=== PATIENT | female | born 1935 | race Caucasian/White ===

== ENCOUNTER → 2017-05-21 | Outpatient (CLI) | payer MEDICARE ==
--- NOTE | 2017-05-21 15:36 | Diagnostic Imaging Report ---
INDICATION: Lung carcinoma, staging. TECHNIQUE: Serum blood glucose level at the time of injection is 129 mg/deciliter. The patient was administered 12.6 mCi F-18 FDG intravenously, administered in the right antecubital location. PET imaging was performed from the top of the skull through the pelvis. In addition, noncontrast CT imaging was performed for anatomic correlation and attenuation correction. COMPARISON: No prior CT or PET study is available for comparison. FINDINGS: There is normal symmetric uptake of activity throughout the brain. Symmetric muscular activity is identified within the strap muscles and sternocleidomastoid muscles of the neck bilaterally. No suspicious foci are detected. Imaging through the chest also demonstrates symmetric pectoralis muscular uptake. There is intense hypermetabolism involving a mass centrally located in the mediastinum near the nicho and origin of the right mainstem bronchus. The mass is inseparable from atelectatic lung occupying the entire right hemithorax. The SUV max for the central mass is approximately 12. There is complete atelectasis of the right upper lobe, right lower lobe, and right middle lobe. There are air bronchograms present. There is also a moderate amount of pleural fluid involving the right hemithorax. No other mediastinal or hilar mass is identified. No other parenchymal abnormalities are seen. Imaging through the abdomen demonstrates physiologic activity within the heart as well as the liver and spleen, urinary tracts, and GI tract. No abdominal or pelvic lymphadenopathy is identified. IMPRESSION: Intense hypermetabolism involving a large mass in the middle mediastinum at the origin of the right mainstem bronchus, suggestive of bronchogenic carcinoma. This does produce complete obstruction of the right mainstem bronchus with complete atelectasis of the right lung. There is also moderate right pleural effusion. No other regions of hypermetabolism are identified. Dictated by: Dictated on workstation # [id number]
== END ==
LOC: RAD 09:57
PROVIDERS: ATTEND Internal Medicine Hematology & Oncology
DX: C34.90 Malignant neoplasm of unspecified part of unspecified bronchus or lung (principal); J98.11 Atelectasis; J90 Pleural effusion, not elsewhere classified

== ENCOUNTER → 2017-05-28 | Outpatient (CLI) | payer MEDICARE ==
--- NOTE | 2017-05-28 14:16 | Diagnostic Imaging Report ---
INDICATION: Pleural effusion. TIME OF EXAM: 2:17 p.m. No prior chest radiographs are available for comparison. The heart size is normal. There are changes of median sternotomy. There is complete opacification of right hemithorax, likely owing to a combination of pleural fluid and lung consolidation. The left lung appears to be clear. No pneumothorax is seen. IMPRESSION: Complete opacification of the right hemithorax consistent with combination of atelectasis and pleural fluid. Dictated by: Dictated on workstation # [id number]
== END ==
LOC: RAD 10:57
PROVIDERS: ATTEND Nurse Practitioner Adult Health
DX: C34.2 Malignant neoplasm of middle lobe, bronchus or lung (principal); J90 Pleural effusion, not elsewhere classified
CPT/HCPCS: 71046

== ENCOUNTER 2017-06-07 05:29 | Outpatient (CLI) | payer MEDICARE ==
[~2017-06-07] VITALS: Ht 147.3 cm; Wt 56.2 kg
[2017-06-07 11:10] VITALS: BP 130/77
[2017-06-07] MEDS ORDERED: BUDE10.2 IH (12:02)
[2017-06-07] MEDS ORDERED: LOVA20TA2 PO (12:02)
[2017-06-07] MEDS ORDERED: TIMO5DRO5 OU (12:02)
[2017-06-07] MEDS ORDERED: LISI40TA PO (12:02)
[2017-06-07] MEDS ORDERED: ONDA8TAB12 PO (12:02)
[2017-06-07] MEDS ORDERED: MV-M1TAB2 PO (12:02)
[2017-06-07] MEDS ORDERED: NICO-533 TD (12:52)
[2017-06-07] MEDS ORDERED: ISOS30TA3 PO (12:52)
== END 2017-06-07 11:30 | disposition home or self-care (01) ==
LOC: PREOP 05:29
PROVIDERS: ATTEND Surgery
DX: Z01.818 Encounter for other preprocedural examination (principal); Z11.2 Encounter for screening for other bacterial diseases; C34.90 Malignant neoplasm of unspecified part of unspecified bronchus or lung
CPT/HCPCS: 87081

== ENCOUNTER 2017-06-10 07:25 | Day surgery (SDC) | payer MEDICARE ==
[~2017-06-10] VITALS: Ht 147.3 cm; Wt 56.2 kg
[2017-06-10 07:23] VITALS: BP 132/69
[~2017-06-10 07:25] MED LIST: BUDE10.2 IH; ISOS30TA3 PO; LISI40TA PO; LOVA20TA2 PO; MV-M1TAB2 PO; NICO-533 TD; ONDA8TAB12 PO; TIMO5DRO5 OU
[2017-06-10] MEDS ORDERED: ceFAZolin 2 GM/50 ML PRE-MIX IVPB IV ONE (07:45)
[2017-06-10] MEDS ORDERED: CATHETER FLUSH 10 ML SYR IV PRN (07:45)
--- NOTE | 2017-06-10 08:02 | Progress Note-Pre Operative ---
Pre-Operative Progress Note H&P Reviewed The H&P was reviewed, patient examined and no changes noted. Time Seen by Provider: 07:58 Date H&P Reviewed: Jun 10, 2017 Time H&P Reviewed: 08:00 Pre-Operative Diagnosis: Lung CA, Pleural Effusion, Venous Insufficiency BOOKER AQUINO DO Jun 10, 2017 08:02
[2017-06-10] MEDS ORDERED: proPOfol 200 MG/20 ML (DIPRIVAN) VIAL IV ONE (08:31)
[2017-06-10] MEDS ORDERED: LIDOCAINE/EPI 1%-1:200,000 (XYLOCAINE) 10 ML VIAL ONE (08:31)
[2017-06-10] MEDS ORDERED: 0.9% SODIUM CHLORIDE PF INJ 20 ML VIAL ONE (08:31)
[2017-06-10] MEDS ORDERED: HEParin (CENTRAL IV FLUSH) 500 UNIT/5 ML SYR ONE (08:31)
[2017-06-10] MEDS ORDERED: PROPOFOL INJECTION 50 ML IV ONE (08:31)
[2017-06-10] MEDS ORDERED: LACTATED RINGERS 1,000 ML IV PRN (08:40)
[2017-06-10] MEDS ORDERED: PHENYLEPHRINE 100 MCG/ML 10 ML (ANESTHESIA) SYR ONE (10:13)
[2017-06-10] MEDS ORDERED: ACHD5005 PO (10:22)
--- NOTE | 2017-06-10 10:22 | Progress Note-Post Operative ---
Post-Operative Progess Note Surgeon (s)/Pizza Driver (s) Surgeon BOOKER AQUINO DO Pizza Driver: none Pre-Operative Diagnosis Lung CA, Pleural Effusion, Venous Insufficiency Post-Operative Diagnosis Same Procedure & Operative Findings Date of Procedure 06/10/17 Procedure Performed/Findings 1. Thoracentesis 2. Siddhartha-cath placement, right anterior chest wall Anesthesia Type IV sedation by COSMETIC SALES ADVISOR Estimated Blood Loss Estimated blood loss (mL): scant Specimens/Packing Specimens Removed pleural fluid sent for cytology BOOKER AQUINO DO Jun 10, 2017 10:22
--- NOTE | 2017-06-10 10:25 | Discharge Inst-Surgical ---
Discharge Inst-Surgical Depart Medication/Instructions New, Converted or Re-Newed RX: RX Given to Pt/Family Patient Instructions Follow up Appt: Make appointment for 1 week. Instructions: No lifting greater than 10 pounds. No strenuous activity. May shower in 24 hours, no tub bath or soaking. Use incentive spirometer at home as directed. No Smoking Skin/Wound Care: May remove bandages in am, leave the one on your back for 2 days. You need to leave the Dermabond on over incision, it will fall off on its own. Symptoms to Report: Appetite Changes, Extremity Discoloration, Numbness/Tingling, Swelling Increased , Bleeding Excessive, Eyesight Changes, Pain Increased, Urine Color Change, Constipation(Persistent), Fever over 101 degree F, Pain/Pressure in chest, Urinating Difficulty, Cough Up/Vomit Blood, Heart Beat Irreg/Pounding, Pain/ Pressure in jaw, Vaginal Bleeding Increase, Cramps in feet or legs, Lightheadedness, Pain/Pressure in shoulder, Diarrhea(Persistent), Memory Changes Suddenly, Questions/Concerns, Weight gain consecutive days, Dizziness/ Fainting, Nausea/Vomiting, Shortness of Breath, Weight gain over 2 pounds If questions or concerns contact your physician Or seek help at emergency department. Activity Activity as Tolerated: Yes Activity Instructions: Avoid Stress to Incision Driving Instructions: No Driving/Refer to Dr. Polk Discharge Diet: No Restrictions Diet After 24 Hours: Clear Liquid if Nauseous Symptoms to Report to Physicia: Shortness of Breath If Any Problems/Questions/Issu: Contact Your Physician, Go to Emergency Room Skin/Wound Care Infection Signs and Symptoms: Increased Redness, Foul Odor of Wound, Increased Drainage, Skin Itchy or Has a Rash, Increased Swelling, Temperature Above 101 F Bathing Instructions: Shower Stitches/Veronika/Dermabond Dis: Dermabond Ice Pack: Ice On and Off Site BOOKER AQUINO DO Jun 10, 2017 10:25
[2017-06-10] MEDS ORDERED: morphine INJ 10 MG/ML 1ML (SYR OR VIAL) IVP PRN (10:30)
--- NOTE | 2017-06-10 10:36 | Diagnostic Imaging Report ---
INDICATION: Fluoroscopy for Groshong catheter placement. TIME OF EXAMINATION: 10:12 AM. FINDINGS: Fluoroscopy was provided during Groshong catheter placement. 14 seconds of fluoroscopy was utilized. Images over the chest demonstrate the Groshong catheter overlying the SVC/ right atrial junction. A second catheter tubing overlies the upper chest, indeterminate. IMPRESSION: Fluoroscopy for Groshong catheter placement. Dictated by: Dictated on workstation # [id number]
--- NOTE | 2017-06-10 10:47 | Diagnostic Imaging Report ---
INDICATION: Line placement and thoracentesis. TIME OF EXAM: 10:31 AM Correlation is made with prior study from 05/28/2017. FINDINGS: Right subclavian catheter has been placed has its tip overlying the SVC. There has been significant reduction in right-sided pleural effusion when compared with prior exam, status post thoracentesis. There does appear to be moderate-sized pneumothorax on the right side with atelectatic right upper and right lower lobe. The trachea remains midline. 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 Left lung is clear. There is some subcutaneous emphysema along the right lateral chest wall as well as along the lower right neck. IMPRESSION: 1. Right-sided Groshong catheter placement which has tip in good position at the SVC right atrial junction. 2. Significant reduction in size of right pleural effusion, status post thoracentesis. Patient has developed a moderate sized right pneumothorax, as described with atelectasis of the right lung. Dictated by: Dictated on workstation # [id number]
[2017-06-10 11:00] VITALS: BP 144/88
[2017-06-10 11:30] VITALS: BP 138/54
[2017-06-10 12:00] VITALS: BP 118/58
[2017-06-10 12:56] VITALS: BP 118/58
--- NOTE | 2017-06-10 13:25 | Anesthesia-General Post-Op ---
MAC Patient Condition Mental Status/LOC: Same as Preop Cardiovascular: Satisfactory Nausea/Vomiting: Absent Respiratory: Satisfactory Pain: Controlled Complications: Absent Post Op Complications Complications None Follow Up Care/Instructions Patient Instructions None needed. Anesthesiology Discharge Order Discharge Order Patient was seen after surgery and prior to her discharge and she was doing well , no complaints, stable vital signs, no apparent adverse anesthesia problems. GLENNY DERAS DO Jun 10, 2017 13:25
--- NOTE | 2017-06-10 22:31 | OPERATIVE REPORT ---
DATE OF SERVICE: 06/10/2017 PREOPERATIVE DIAGNOSES: 1. Lung cancer. 2. Pleural effusion. 3. Venous insufficiency. POSTOPERATIVE DIAGNOSES: 1. Lung cancer. 2. Pleural effusion. 3. Venous insufficiency. PROCEDURES: 1. Thoracentesis. 2. Port-A-Cath placement. SURGEON: Dr. Isidro. ENERGY CONSERVATION TECHNICIAN: None. ANESTHESIA: IV sedation by the WASTE/MATERIALS EXCHANGE SPECIALIST. SPECIMEN: Pleural fluid. BLOOD LOSS: Less than 5 mL. FLUIDS: Per anesthesia. POSTOPERATIVE CONDITION: Stable. INDICATION FOR PROCEDURE: The patient is an 81-year-old female who unfortunately has lung cancer and has a completely wide out lung secondary to pleural effusion, some venous insufficiency and need a port placement for chemotherapy. FINDINGS: The patient had thoracentesis done, drained about 600 mL and she had a Port-A-Cath placed in the right anterior chest wall. PROCEDURE NOTE: After informed consent was obtained, the patient was brought to the operating room. She was placed on table in the left lateral decubitus position. Ultrasound used to check lung to find the fluid, then sterilely prepped and draped the area in normal fashion. Local lidocaine was used to infiltrate the skin just above the ribs and then under ultrasound guidance, advanced the needle into the pleural space, removed the needle and then proceeded to suction out using a 60 mL syringe, approximately 600 mL of pleural fluid and this was then sent for pathology. The lung did expand and the patient's oxygenation did improve, although she did appear like she is getting some air leakage. At this point, then placed an occlusive dressing and cleaned the area. The patient then placed supine. Rescrubbed back in and then proceeded to do the Port-A-Cath placement. The patient was placed slightly Trendelenburg. She had been sterilely prepped and draped in normal fashion. Local lidocaine was used to infiltrate the right anterior chest wall, then using an 18-gauge finder needle on the second attempt cannulated the subclavian vein, got a good flash of blood, removed the syringe, placed a guidewire down the needle using Seldinger technique, checked with fluoroscopy, actually it was going up into the neck and move it a couple of times and finally able to go down into the inferior vena cava, removed the needle, made a stab incision at the guidewire and then held the guidewire in place with a hemostat. Then, made a small incision in the right anterior chest wall with a #11 blade, carried down through the skin into subcutaneous tissue, then deep down subcutaneous tissue with Bovie electrocautery as well as some blunt dissection. Then, over the guidewire, placed a dilator using Seldinger technique, checked fluoroscopy, it was in good position and then tunneled the catheter from the dilator into the pocket previously created. Removed the inner portion of the dilator as well as the guidewire and then placed the catheter down the dilator using the Seldinger technique, it went in easily, checked with fluoroscopy, it was in good position, removed the outer portion of the dilator sheath, then attached the catheter to the port. The port was sutured in place with 3-0 Prolene. Accessed the port with a Rene needle and aspirated and got a good flash of blood and then flushed with saline, and then aspirated and flushed with 2 mL of heparin. This was placed in the pocket. We then elected to close the pocket closing with a 3-0 Vicryl to close the subcutaneous tissue and then used a 4-0 undyed Monocryl to close the stab incision in the right below the clavicle and then closed the right anterior chest wall incision with 3 interrupted 4-0 undyed Monocryl subcuticular stitches. Area was cleaned and dried. Dermabond was placed as well as Band-Aids. The patient then transferred to recovery room in stable condition. Sponge, instrument and needle count correct at the end of the case. Job ID: [id number] DocumentID: [id number] Dictated Date: 06/10/2017 15:27:56 Tire Maintenance Technician Date: 06/10/2017 22:31:08 Dictated By: BOOKER ISIDRO DO
== END 2017-06-10 12:56 | disposition home or self-care (01) ==
LOC: SDC 07:25
PROVIDERS: ATTEND Surgery
DX: C34.91 Malignant neoplasm of unspecified part of right bronchus or lung (principal); J90 Pleural effusion, not elsewhere classified; I87.2 Venous insufficiency (chronic) (peripheral); I10 Essential (primary) hypertension; J44.9 Chronic obstructive pulmonary disease, unspecified; K21.9 Gastro-esophageal reflux disease without esophagitis; Z95.5 Presence of coronary angioplasty implant and graft; Z95.1 Presence of aortocoronary bypass graft; Z87.891 Personal history of nicotine dependence; Z79.899 Other long term (current) drug therapy
CPT/HCPCS: 71045

== ENCOUNTER 2017-07-18 13:24 | Outpatient (RCR) | payer MEDICARE ==
[2017-05-24 10:42] LABS: BASOPHILS % (AUTO) 0 % (0-10); EOSINOPHILS # (AUTO) 0.1 10^3/uL (0.0-0.3); EOSINOPHILS % (AUTO) 1 % (0-10); HEMATOCRIT 33 % (35-52); HEMOGLOBIN 10.1 G/DL (11.5-16.0); LYMPHOCYTES # (AUTO) 0.3 X 10^3 (1.0-4.0); LYMPHOCYTES % (AUTO) 3 % (12-44); MEAN CORPUSCULAR HEMOGLOBIN 29 PG (25-34); MEAN CORPUSCULAR HGB CONC 31 G/DL (32-36); MEAN CORPUSCULAR VOLUME 95 FL (80-99); MEAN PLATELET VOLUME 10.8 FL (7.4-10.4); MONOCYTES # (AUTO) 0.3 X 10^3 (0.0-1.0); MONOCYTES % (AUTO) 3 % (0-12); NEUTROPHILS # (AUTO) 9.2 X 10^3 (1.8-7.8); NEUTROPHILS % (AUTO) 94 % (42-75); PLATELET COUNT 191 10^3/uL (130-400); RED BLOOD COUNT 3.45 10^6/uL (4.35-5.85); RED CELL DISTRIBUTION WIDTH 14.8 % (10.0-14.5); WHITE BLOOD COUNT 9.8 10^3/uL (4.3-11.0)
[2017-05-24 11:05] LABS: ALANINE AMINOTRANSFERASE 36 U/L (0-55); ALBUMIN 3.4 GM/DL (3.2-4.5); ALKALINE PHOSPHATASE 60 U/L (40-136); BILIRUBIN,TOTAL 0.3 MG/DL (0.1-1.0); BUN/CREATININE RATIO 15; CALCIUM 9.3 MG/DL (8.5-10.1); CARBON DIOXIDE 34 MMOL/L (21-32); CHLORIDE 97 MMOL/L (98-107); CREATININE SERUM 0.66 MG/DL (0.60-1.30); GFR ESTIMATED > 60; GLUCOSE 90 MG/DL (70-105); MAGNESIUM 1.6 MG/DL (1.8-2.4); SODIUM 138 MMOL/L (135-145); TOTAL PROTEIN 6.3 GM/DL (6.4-8.2)
[2017-06-04 10:51] LABS: BASOPHILS % (AUTO) 0 % (0-10); EOSINOPHILS % (AUTO) 0 % (0-10); HEMATOCRIT 33 % (35-52); HEMOGLOBIN 10.1 G/DL (11.5-16.0); LYMPHOCYTES # (AUTO) 0.2 X 10^3 (1.0-4.0); LYMPHOCYTES % (AUTO) 5 % (12-44); MEAN CORPUSCULAR HEMOGLOBIN 29 PG (25-34); MEAN CORPUSCULAR HGB CONC 31 G/DL (32-36); MEAN CORPUSCULAR VOLUME 92 FL (80-99); MEAN PLATELET VOLUME 10.5 FL (7.4-10.4); MONOCYTES # (AUTO) 0.1 X 10^3 (0.0-1.0); MONOCYTES % (AUTO) 2 % (0-12); NEUTROPHILS # (AUTO) 4.1 X 10^3 (1.8-7.8); NEUTROPHILS % (AUTO) 92 % (42-75); PLATELET COUNT 191 10^3/uL (130-400); RED BLOOD COUNT 3.54 10^6/uL (4.35-5.85); RED CELL DISTRIBUTION WIDTH 14.6 % (10.0-14.5); WHITE BLOOD COUNT 4.5 10^3/uL (4.3-11.0)
[2017-06-04 11:10] LABS: BUN/CREATININE RATIO 13; CALCIUM 9.6 MG/DL (8.5-10.1); CARBON DIOXIDE 31 MMOL/L (21-32); CHLORIDE 97 MMOL/L (98-107); CREATININE SERUM 0.62 MG/DL (0.60-1.30); GFR ESTIMATED > 60; GLUCOSE 179 MG/DL (70-105); MAGNESIUM 1.6 MG/DL (1.8-2.4); POTASSIUM 4.6 MMOL/L (3.6-5.0); SODIUM 138 MMOL/L (135-145)
[2017-06-12 10:03] LABS: BASOPHILS % (AUTO) 1 % (0-10); EOSINOPHILS # (AUTO) 0.1 10^3/uL (0.0-0.3); EOSINOPHILS % (AUTO) 2 % (0-10); HEMATOCRIT 30 % (35-52); HEMOGLOBIN 9.4 G/DL (11.5-16.0); LYMPHOCYTES # (AUTO) 0.5 X 10^3 (1.0-4.0); LYMPHOCYTES % (AUTO) 12 % (12-44); MEAN CORPUSCULAR HEMOGLOBIN 28 PG (25-34); MEAN CORPUSCULAR HGB CONC 31 G/DL (32-36); MEAN CORPUSCULAR VOLUME 91 FL (80-99); MEAN PLATELET VOLUME 9.6 FL (7.4-10.4); MONOCYTES # (AUTO) 0.3 X 10^3 (0.0-1.0); MONOCYTES % (AUTO) 9 % (0-12); NEUTROPHILS # (AUTO) 2.8 X 10^3 (1.8-7.8); NEUTROPHILS % (AUTO) 76 % (42-75); PLATELET COUNT 231 10^3/uL (130-400); RED BLOOD COUNT 3.32 10^6/uL (4.35-5.85); RED CELL DISTRIBUTION WIDTH 15.3 % (10.0-14.5); WHITE BLOOD COUNT 3.7 10^3/uL (4.3-11.0)
[2017-06-12 10:22] LABS: ALANINE AMINOTRANSFERASE 13 U/L (0-55); ALBUMIN 3.1 GM/DL (3.2-4.5); ALKALINE PHOSPHATASE 56 U/L (40-136); BILIRUBIN,TOTAL 0.4 MG/DL (0.1-1.0); BUN/CREATININE RATIO 15; CALCIUM 9.5 MG/DL (8.5-10.1); CARBON DIOXIDE 27 MMOL/L (21-32); CHLORIDE 100 MMOL/L (98-107); CREATININE SERUM 0.66 MG/DL (0.60-1.30); GFR ESTIMATED > 60; GLUCOSE 108 MG/DL (70-105); MAGNESIUM 1.5 MG/DL (1.8-2.4); POTASSIUM 4.2 MMOL/L (3.6-5.0); SODIUM 136 MMOL/L (135-145); TOTAL PROTEIN 5.7 GM/DL (6.4-8.2)
[2017-06-19 10:05] LABS: BASOPHILS % (AUTO) 1 % (0-10); EOSINOPHILS # (AUTO) 0.5 10^3/uL (0.0-0.3); EOSINOPHILS % (AUTO) 13 % (0-10); HEMATOCRIT 33 % (35-52); HEMOGLOBIN 10.2 G/DL (11.5-16.0); LYMPHOCYTES # (AUTO) 0.5 X 10^3 (1.0-4.0); LYMPHOCYTES % (AUTO) 13 % (12-44); MEAN CORPUSCULAR HEMOGLOBIN 28 PG (25-34); MEAN CORPUSCULAR HGB CONC 31 G/DL (32-36); MEAN CORPUSCULAR VOLUME 89 FL (80-99); MONOCYTES # (AUTO) 0.5 X 10^3 (0.0-1.0); MONOCYTES % (AUTO) 12 % (0-12); NEUTROPHILS # (AUTO) 2.5 X 10^3 (1.8-7.8); NEUTROPHILS % (AUTO) 62 % (42-75); PLATELET COUNT 240 10^3/uL (130-400); RED BLOOD COUNT 3.67 10^6/uL (4.35-5.85); RED CELL DISTRIBUTION WIDTH 15.7 % (10.0-14.5)
[2017-06-19 10:25] LABS: BUN/CREATININE RATIO 19; CALCIUM 9.8 MG/DL (8.5-10.1); CARBON DIOXIDE 24 MMOL/L (21-32); CHLORIDE 101 MMOL/L (98-107); CREATININE SERUM 0.64 MG/DL (0.60-1.30); GFR ESTIMATED > 60; GLUCOSE 92 MG/DL (70-105); MAGNESIUM 1.6 MG/DL (1.8-2.4); POTASSIUM 4.6 MMOL/L (3.6-5.0); SODIUM 134 MMOL/L (135-145)
[2017-06-26 10:11] LABS: BASOPHILS % (AUTO) 0 % (0-10); EOSINOPHILS % (AUTO) 0 % (0-10); HEMATOCRIT 30 % (35-52); HEMOGLOBIN 9.1 G/DL (11.5-16.0); LYMPHOCYTES # (AUTO) 0.4 X 10^3 (1.0-4.0); LYMPHOCYTES % (AUTO) 7 % (12-44); MEAN CORPUSCULAR HEMOGLOBIN 27 PG (25-34); MEAN CORPUSCULAR HGB CONC 31 G/DL (32-36); MEAN CORPUSCULAR VOLUME 88 FL (80-99); MEAN PLATELET VOLUME 8.9 FL (7.4-10.4); MONOCYTES # (AUTO) 0.1 X 10^3 (0.0-1.0); MONOCYTES % (AUTO) 1 % (0-12); NEUTROPHILS # (AUTO) 5.1 X 10^3 (1.8-7.8); NEUTROPHILS % (AUTO) 92 % (42-75); PLATELET COUNT 271 10^3/uL (130-400); RED BLOOD COUNT 3.34 10^6/uL (4.35-5.85); RED CELL DISTRIBUTION WIDTH 14.9 % (10.0-14.5); WHITE BLOOD COUNT 5.6 10^3/uL (4.3-11.0)
[2017-06-26 10:26] LABS: ALANINE AMINOTRANSFERASE 10 U/L (0-55); ALBUMIN 3.2 GM/DL (3.2-4.5); ALKALINE PHOSPHATASE 54 U/L (40-136); BILIRUBIN,TOTAL 0.2 MG/DL (0.1-1.0); BUN/CREATININE RATIO 17; CALCIUM 9.8 MG/DL (8.5-10.1); CARBON DIOXIDE 28 MMOL/L (21-32); CHLORIDE 99 MMOL/L (98-107); CREATININE SERUM 0.65 MG/DL (0.60-1.30); GFR ESTIMATED > 60; GLUCOSE 215 MG/DL (70-105); MAGNESIUM 1.5 MG/DL (1.8-2.4); POTASSIUM 4.9 MMOL/L (3.6-5.0); SODIUM 135 MMOL/L (135-145); TOTAL PROTEIN 6.1 GM/DL (6.4-8.2)
[2017-07-17 09:59] LABS: BASOPHILS % (AUTO) 0 % (0-10); EOSINOPHILS % (AUTO) 1 % (0-10); HEMATOCRIT 26 % (35-52); HEMOGLOBIN 7.8 G/DL (11.5-16.0); LYMPHOCYTES # (AUTO) 0.5 X 10^3 (1.0-4.0); LYMPHOCYTES % (AUTO) 11 % (12-44); MEAN CORPUSCULAR HEMOGLOBIN 27 PG (25-34); MEAN CORPUSCULAR HGB CONC 30 G/DL (32-36); MEAN CORPUSCULAR VOLUME 88 FL (80-99); MEAN PLATELET VOLUME 8.9 FL (7.4-10.4); MONOCYTES # (AUTO) 0.3 X 10^3 (0.0-1.0); MONOCYTES % (AUTO) 7 % (0-12); NEUTROPHILS # (AUTO) 3.6 X 10^3 (1.8-7.8); NEUTROPHILS % (AUTO) 81 % (42-75); PLATELET COUNT 264 10^3/uL (130-400); RED BLOOD COUNT 2.92 10^6/uL (4.35-5.85); RED CELL DISTRIBUTION WIDTH 16.3 % (10.0-14.5); WHITE BLOOD COUNT 4.4 10^3/uL (4.3-11.0)
[2017-07-17 10:17] LABS: ALANINE AMINOTRANSFERASE 8 U/L (0-55); ALKALINE PHOSPHATASE 52 U/L (40-136); BILIRUBIN,TOTAL 0.3 MG/DL (0.1-1.0); BUN/CREATININE RATIO 11; CALCIUM 9.3 MG/DL (8.5-10.1); CARBON DIOXIDE 24 MMOL/L (21-32); CHLORIDE 104 MMOL/L (98-107); CREATININE SERUM 0.64 MG/DL (0.60-1.30); GFR ESTIMATED > 60; GLUCOSE 131 MG/DL (70-105); MAGNESIUM 1.6 MG/DL (1.8-2.4); POTASSIUM 4.1 MMOL/L (3.6-5.0); SODIUM 137 MMOL/L (135-145)
[~2017-07-18] VITALS: Ht 152.4 cm; Wt 53.1 kg
[~2017-07-18 13:24] MED LIST changes: +ACHD5005 PO; +CARBOPLATIN 150 MG in D5W 50 ML IV(CANCER CTR) 50 ML IV SCH; +CARBOPLATIN IV SCH; +D5W IV SCH; +FAMOTIDINE 20MG/2ML IV (CANCER CTR) IV SCH; +MAGNESIUM SULFATE IV ONE; +NORMAL SALINE IV SCH; +NS IV 1000 ML (CANCER CTR) IV SCH; +NS IV ONE; +PACLITAXEL IV SCH; +PALONOSETRON 0.25 MG, DEXAMETHASONE 10 MG/NS 50 ML IVPB IV PRN; +diphenhydrAMINE 25 MG TAB (BENADRYL) CANCER CENTER PO SCH; +diphenhydrAMINE 50 MG/ML INJ (CANCER CENTER) IV PRN
[2017-07-18] MEDS ORDERED: NS IV 500 ML (CANCER CENTER) 500 ML ONE (13:52)
== END 2017-08-05 | disposition home or self-care (01) ==
LOC: ONC 13:24
PROVIDERS: ATTEND Internal Medicine Hematology & Oncology
DX: Z51.0 Encounter for antineoplastic radiation therapy (principal); Z51.11 Encounter for antineoplastic chemotherapy; C34.01 Malignant neoplasm of right main bronchus; I73.00 Raynaud's syndrome without gangrene; Z79.899 Other long term (current) drug therapy
CPT/HCPCS: 36415; 36430; 36591; 77290; 77295; 77300; 77307; 77334; 77336; 77417; 80048; 80053; 83735; 85025; 86850; 86900; 86901; 86920; 96375; 96413; 96415; 96417; 99204; 99213; 99214

== ENCOUNTER 2017-08-28 09:45 | Outpatient (RCR) | payer MEDICARE ==
[2017-08-07 10:05] LABS: BASOPHILS % (AUTO) 1 % (0-10); EOSINOPHILS % (AUTO) 1 % (0-10); HEMATOCRIT 28 % (35-52); HEMOGLOBIN 8.7 G/DL (11.5-16.0); LYMPHOCYTES # (AUTO) 0.7 X 10^3 (1.0-4.0); LYMPHOCYTES % (AUTO) 13 % (12-44); MEAN CORPUSCULAR HEMOGLOBIN 28 PG (25-34); MEAN CORPUSCULAR HGB CONC 31 G/DL (32-36); MEAN CORPUSCULAR VOLUME 89 FL (80-99); MEAN PLATELET VOLUME 9.7 FL (7.4-10.4); MONOCYTES # (AUTO) 0.6 X 10^3 (0.0-1.0); MONOCYTES % (AUTO) 11 % (0-12); NEUTROPHILS # (AUTO) 3.8 X 10^3 (1.8-7.8); NEUTROPHILS % (AUTO) 74 % (42-75); PLATELET COUNT 168 10^3/uL (130-400); RED BLOOD COUNT 3.13 10^6/uL (4.35-5.85); RED CELL DISTRIBUTION WIDTH 17.4 % (10.0-14.5); WHITE BLOOD COUNT 5.1 10^3/uL (4.3-11.0)
[2017-08-07 10:23] LABS: ALANINE AMINOTRANSFERASE 13 U/L (0-55); ALBUMIN 3.2 GM/DL (3.2-4.5); ALKALINE PHOSPHATASE 48 U/L (40-136); BILIRUBIN,TOTAL 0.3 MG/DL (0.1-1.0); BUN/CREATININE RATIO 16; CALCIUM 9.9 MG/DL (8.5-10.1); CARBON DIOXIDE 28 MMOL/L (21-32); CHLORIDE 102 MMOL/L (98-107); CREATININE SERUM 0.63 MG/DL (0.60-1.30); GFR ESTIMATED > 60; GLUCOSE 81 MG/DL (70-105); MAGNESIUM 1.4 MG/DL (1.8-2.4); POTASSIUM 4.4 MMOL/L (3.6-5.0); SODIUM 137 MMOL/L (135-145); TOTAL PROTEIN 6.5 GM/DL (6.4-8.2)
[~2017-08-28] VITALS: Ht 152.4 cm; Wt 55.3 kg
[~2017-08-28 09:45] MED LIST changes: -CARBOPLATIN 150 MG in D5W 50 ML IV(CANCER CTR) 50 ML IV SCH; -MAGNESIUM SULFATE IV ONE; -NS IV ONE; -diphenhydrAMINE 50 MG/ML INJ (CANCER CENTER) IV PRN
[2017-08-28 10:03] LABS: BASOPHILS % (AUTO) 0 % (0-10); EOSINOPHILS % (AUTO) 1 % (0-10); HEMATOCRIT 26 % (35-52); LYMPHOCYTES # (AUTO) 0.3 X 10^3 (1.0-4.0); LYMPHOCYTES % (AUTO) 5 % (12-44); MEAN CORPUSCULAR HEMOGLOBIN 27 PG (25-34); MEAN CORPUSCULAR HGB CONC 31 G/DL (32-36); MEAN CORPUSCULAR VOLUME 90 FL (80-99); MEAN PLATELET VOLUME 9.8 FL (7.4-10.4); MONOCYTES # (AUTO) 0.5 X 10^3 (0.0-1.0); MONOCYTES % (AUTO) 10 % (0-12); NEUTROPHILS # (AUTO) 4.5 X 10^3 (1.8-7.8); NEUTROPHILS % (AUTO) 84 % (42-75); PLATELET COUNT 171 10^3/uL (130-400); RED BLOOD COUNT 2.91 10^6/uL (4.35-5.85); RED CELL DISTRIBUTION WIDTH 17.7 % (10.0-14.5); WHITE BLOOD COUNT 5.4 10^3/uL (4.3-11.0)
[2017-08-28 10:22] LABS: ALANINE AMINOTRANSFERASE 27 U/L (0-55); ALBUMIN 3.5 GM/DL (3.2-4.5); ALKALINE PHOSPHATASE 54 U/L (40-136); BILIRUBIN,TOTAL 0.3 MG/DL (0.1-1.0); BUN/CREATININE RATIO 17; CALCIUM 9.6 MG/DL (8.5-10.1); CARBON DIOXIDE 27 MMOL/L (21-32); CHLORIDE 104 MMOL/L (98-107); CREATININE SERUM 0.65 MG/DL (0.60-1.30); GFR ESTIMATED > 60; GLUCOSE 101 MG/DL (70-105); MAGNESIUM 1.5 MG/DL (1.8-2.4); SODIUM 139 MMOL/L (135-145); TOTAL PROTEIN 6.6 GM/DL (6.4-8.2)
[2017-08-28] MEDS ORDERED: diphenhydrAMINE 50 MG/ML INJ (CANCER CENTER) IV PRN (10:45)
== END 2017-09-13 09:05 | disposition home or self-care (01) ==
LOC: ONC 09:45
PROVIDERS: ATTEND Internal Medicine Hematology & Oncology
DX: Z51.11 Encounter for antineoplastic chemotherapy (principal); C34.01 Malignant neoplasm of right main bronchus; I73.00 Raynaud's syndrome without gangrene; I10 Essential (primary) hypertension; J44.9 Chronic obstructive pulmonary disease, unspecified; K21.9 Gastro-esophageal reflux disease without esophagitis; Z95.5 Presence of coronary angioplasty implant and graft; Z95.1 Presence of aortocoronary bypass graft; Z87.891 Personal history of nicotine dependence; Z79.899 Other long term (current) drug therapy
CPT/HCPCS: 36591; 80053; 83735; 85025; 86850; 86900; 86901; 86920; 96375; 96413; 96415; 96417; 99213

== ENCOUNTER → 2017-09-18 | Outpatient (CLI) | payer MEDICARE ==
[~2017-09-18] MED LIST changes: +BARIUM SUSPENSION 2.1% (VANILLA SILQ) 450 ML PO ONE; -CARBOPLATIN IV SCH; -D5W IV SCH; -FAMOTIDINE 20MG/2ML IV (CANCER CTR) IV SCH; +IOHEXOL 350 MG/ML 100 ML (OMNIPAQUE 350) VIAL IV ONE; -NORMAL SALINE IV SCH; +NS 250 ML (IVPB) BAG IV ONE; -NS IV 1000 ML (CANCER CTR) IV SCH; -PACLITAXEL IV SCH; -PALONOSETRON 0.25 MG, DEXAMETHASONE 10 MG/NS 50 ML IVPB IV PRN; -diphenhydrAMINE 25 MG TAB (BENADRYL) CANCER CENTER PO SCH
--- NOTE | 2017-09-18 11:23 | Diagnostic Imaging Report ---
PROCEDURE: CT chest and abdomen with and without contrast TECHNIQUE: Multiple axial CT images through the thorax and abdomen were obtained with and without intravenous contrast. INDICATION: Lung carcinoma. Comparison is made with PET CT from 05/21/2017. CT CHEST: Changes of median sternotomy are identified. No axillary lymphadenopathy is seen. There has been significant improved aeration to the right lung since the PET/CT from May. Pet CT demonstrated complete consolidation of the right upper right lower lobe and a large amount of pleural fluid. There was a large mass obstructing the right mainstem bronchus. Today there continues to be some abnormal soft tissue surrounding the right mainstem bronchus which does appear to be narrowed, however, this does appear improved since prior. Soft tissue is somewhat difficult to measure but is approximately 2.6 cm AP x 2.2 cm transverse. The left hilum is unremarkable. A right paratracheal node is 2.1 x 1.2 cm. No pericardial fluid is seen. There is a small right pleural effusion. There are some small areas of parenchymal consolidation superior segment right lower lobe which may represent some post obstructive pneumonia. Minimal density right middle lobe is seen. Left lung is clear. IMPRESSION: Significant improved appearance to the chest since PET CT from 05/21/2017. There is now just a small right pleural effusion. There has been significant improved aeration to right lung. Right hilar mass appears to be decreased in size, as described. Mediastinal adenopathy is stable. There are some mild infiltrates in superior segment of the right lower lobe, perhaps residual postobstructive pneumonia. CT ABDOMEN AND PELVIS: No discrete liver mass is identified. The gallbladder is unremarkable. The pancreas and spleen are unremarkable. No adrenal mass is detected. Kidneys are unremarkable. Aorta is heavily calcified and ectatic similar to prior study. There is a large amount of stool throughout the colon consistent with constipation. No central retroperitoneal lymphadenopathy is seen. There is no ascites. IMPRESSION: Moderate stool in the colon suggestive of constipation. No findings to suggest abdominal metastatic disease are identified. Dictated by: Dictated on workstation # [id number]
== END ==
LOC: RAD 10:05
PROVIDERS: ATTEND Internal Medicine Hematology & Oncology
DX: C34.90 Malignant neoplasm of unspecified part of unspecified bronchus or lung (principal)
CPT/HCPCS: 71270; 74170

== ENCOUNTER 2017-11-20 09:50 | Outpatient (RCR) | payer MEDICARE ==
[2017-09-25 10:08] LABS: BASOPHILS % (AUTO) 1 % (0-10); EOSINOPHILS # (AUTO) 0.1 10^3/uL (0.0-0.3); EOSINOPHILS % (AUTO) 3 % (0-10); HEMATOCRIT 29 % (35-52); HEMOGLOBIN 9.1 G/DL (11.5-16.0); LYMPHOCYTES # (AUTO) 0.4 X 10^3 (1.0-4.0); LYMPHOCYTES % (AUTO) 10 % (12-44); MEAN CORPUSCULAR HEMOGLOBIN 27 PG (25-34); MEAN CORPUSCULAR HGB CONC 31 G/DL (32-36); MEAN CORPUSCULAR VOLUME 88 FL (80-99); MEAN PLATELET VOLUME 9.7 FL (7.4-10.4); MONOCYTES # (AUTO) 0.6 X 10^3 (0.0-1.0); MONOCYTES % (AUTO) 17 % (0-12); NEUTROPHILS # (AUTO) 2.6 X 10^3 (1.8-7.8); NEUTROPHILS % (AUTO) 70 % (42-75); PLATELET COUNT 209 10^3/uL (130-400); RED BLOOD COUNT 3.35 10^6/uL (4.35-5.85); WHITE BLOOD COUNT 3.7 10^3/uL (4.3-11.0)
[2017-09-25 10:36] LABS: ALANINE AMINOTRANSFERASE 6 U/L (0-55); ALBUMIN 3.3 GM/DL (3.2-4.5); ALKALINE PHOSPHATASE 49 U/L (40-136); BILIRUBIN,TOTAL 0.3 MG/DL (0.1-1.0); BUN/CREATININE RATIO 21; CARBON DIOXIDE 28 MMOL/L (21-32); CHLORIDE 102 MMOL/L (98-107); CREATININE SERUM 0.68 MG/DL (0.60-1.30); GFR ESTIMATED > 60; GLUCOSE 105 MG/DL (70-105); MAGNESIUM 1.7 MG/DL (1.8-2.4); POTASSIUM 4.3 MMOL/L (3.6-5.0); SODIUM 137 MMOL/L (135-145); TOTAL PROTEIN 6.5 GM/DL (6.4-8.2)
[2017-10-09 11:02] LABS: BASOPHILS % (AUTO) 1 % (0-10); EOSINOPHILS # (AUTO) 0.4 10^3/uL (0.0-0.3); EOSINOPHILS % (AUTO) 6 % (0-10); HEMATOCRIT 29 % (35-52); HEMOGLOBIN 9.2 G/DL (11.5-16.0); LYMPHOCYTES # (AUTO) 0.4 X 10^3 (1.0-4.0); LYMPHOCYTES % (AUTO) 7 % (12-44); MEAN CORPUSCULAR HEMOGLOBIN 28 PG (25-34); MEAN CORPUSCULAR HGB CONC 32 G/DL (32-36); MEAN CORPUSCULAR VOLUME 87 FL (80-99); MEAN PLATELET VOLUME 9.2 FL (7.4-10.4); MONOCYTES # (AUTO) 0.7 X 10^3 (0.0-1.0); MONOCYTES % (AUTO) 11 % (0-12); NEUTROPHILS # (AUTO) 4.7 X 10^3 (1.8-7.8); NEUTROPHILS % (AUTO) 75 % (42-75); PLATELET COUNT 266 10^3/uL (130-400); RED BLOOD COUNT 3.34 10^6/uL (4.35-5.85); RED CELL DISTRIBUTION WIDTH 15.8 % (10.0-14.5); WHITE BLOOD COUNT 6.3 10^3/uL (4.3-11.0)
[2017-10-09 11:30] LABS: ALANINE AMINOTRANSFERASE 9 U/L (0-55); ALBUMIN 3.4 GM/DL (3.2-4.5); ALKALINE PHOSPHATASE 61 U/L (40-136); BILIRUBIN,TOTAL 0.4 MG/DL (0.1-1.0); BUN/CREATININE RATIO 19; CALCIUM 10.4 MG/DL (8.5-10.1); CARBON DIOXIDE 29 MMOL/L (21-32); CHLORIDE 97 MMOL/L (98-107); CREATININE SERUM 0.73 MG/DL (0.60-1.30); GFR ESTIMATED > 60; GLUCOSE 88 MG/DL (70-105); POTASSIUM 4.8 MMOL/L (3.6-5.0); SODIUM 133 MMOL/L (135-145)
[2017-10-23 09:30] LABS: BASOPHILS # (AUTO) 0.1 10^3/uL (0.0-0.1); BASOPHILS % (AUTO) 1 % (0-10); EOSINOPHILS # (AUTO) 0.5 10^3/uL (0.0-0.3); EOSINOPHILS % (AUTO) 8 % (0-10); HEMATOCRIT 30 % (35-52); LYMPHOCYTES # (AUTO) 0.6 X 10^3 (1.0-4.0); LYMPHOCYTES % (AUTO) 10 % (12-44); MEAN CORPUSCULAR HEMOGLOBIN 27 PG (25-34); MEAN CORPUSCULAR HGB CONC 30 G/DL (32-36); MEAN CORPUSCULAR VOLUME 87 FL (80-99); MEAN PLATELET VOLUME 9.6 FL (7.4-10.4); MONOCYTES # (AUTO) 0.6 X 10^3 (0.0-1.0); MONOCYTES % (AUTO) 10 % (0-12); NEUTROPHILS # (AUTO) 4.5 X 10^3 (1.8-7.8); NEUTROPHILS % (AUTO) 72 % (42-75); PLATELET COUNT 295 10^3/uL (130-400); RED CELL DISTRIBUTION WIDTH 15.7 % (10.0-14.5); WHITE BLOOD COUNT 6.3 10^3/uL (4.3-11.0)
[2017-10-23 09:50] LABS: ALANINE AMINOTRANSFERASE 9 U/L (0-55); ALBUMIN 3.2 GM/DL (3.2-4.5); ALKALINE PHOSPHATASE 52 U/L (40-136); BILIRUBIN,TOTAL 0.3 MG/DL (0.1-1.0); BUN/CREATININE RATIO 20; CALCIUM 10.5 MG/DL (8.5-10.1); CARBON DIOXIDE 31 MMOL/L (21-32); CHLORIDE 100 MMOL/L (98-107); CREATININE SERUM 0.79 MG/DL (0.60-1.30); GFR ESTIMATED > 60; GLUCOSE 88 MG/DL (70-105); POTASSIUM 4.5 MMOL/L (3.6-5.0); SODIUM 137 MMOL/L (135-145); TOTAL PROTEIN 6.9 GM/DL (6.4-8.2)
[2017-11-06 09:48] LABS: BASOPHILS # (AUTO) 0.1 10^3/uL (0.0-0.1); BASOPHILS % (AUTO) 1 % (0-10); EOSINOPHILS # (AUTO) 0.3 10^3/uL (0.0-0.3); EOSINOPHILS % (AUTO) 7 % (0-10); HEMATOCRIT 28 % (35-52); HEMOGLOBIN 8.2 G/DL (11.5-16.0); LYMPHOCYTES # (AUTO) 0.4 X 10^3 (1.0-4.0); LYMPHOCYTES % (AUTO) 9 % (12-44); MEAN CORPUSCULAR HEMOGLOBIN 26 PG (25-34); MEAN CORPUSCULAR HGB CONC 30 G/DL (32-36); MEAN CORPUSCULAR VOLUME 89 FL (80-99); MEAN PLATELET VOLUME 8.8 FL (7.4-10.4); MONOCYTES # (AUTO) 0.5 X 10^3 (0.0-1.0); MONOCYTES % (AUTO) 11 % (0-12); NEUTROPHILS # (AUTO) 2.9 X 10^3 (1.8-7.8); NEUTROPHILS % (AUTO) 71 % (42-75); PLATELET COUNT 204 10^3/uL (130-400); RED CELL DISTRIBUTION WIDTH 16.6 % (10.0-14.5)
[2017-11-06 10:07] LABS: ALANINE AMINOTRANSFERASE 11 U/L (0-55); ALBUMIN 3.1 GM/DL (3.2-4.5); ALKALINE PHOSPHATASE 49 U/L (40-136); BILIRUBIN,TOTAL 0.3 MG/DL (0.1-1.0); BUN/CREATININE RATIO 13; CALCIUM 9.7 MG/DL (8.5-10.1); CARBON DIOXIDE 28 MMOL/L (21-32); CHLORIDE 100 MMOL/L (98-107); CREATININE SERUM 0.68 MG/DL (0.60-1.30); GFR ESTIMATED > 60; GLUCOSE 100 MG/DL (70-105); POTASSIUM 4.2 MMOL/L (3.6-5.0); SODIUM 137 MMOL/L (135-145); TOTAL PROTEIN 6.2 GM/DL (6.4-8.2)
[~2017-11-20] VITALS: Ht 152.4 cm; Wt 52.6 kg
[~2017-11-20 09:50] MED LIST changes: -BARIUM SUSPENSION 2.1% (VANILLA SILQ) 450 ML PO ONE; +DURVALUMAB 500 MG in NS (IVPB) CANCER CENTER 100 ML IV SCH; -IOHEXOL 350 MG/ML 100 ML (OMNIPAQUE 350) VIAL IV ONE; +NS (IVPB) CANCER CENTER 250 ML IV SCH; -NS 250 ML (IVPB) BAG IV ONE; +NS IV 500 ML (CANCER CENTER) 500 ML IV SCH; +NS IV 500 ML (CANCER CENTER) 500 ML ONE
[2017-12-04 08:14] LABS: BASOPHILS % (AUTO) 1 % (0-10); EOSINOPHILS # (AUTO) 0.2 10^3/uL (0.0-0.3); EOSINOPHILS % (AUTO) 5 % (0-10); HEMATOCRIT 31 % (35-52); HEMOGLOBIN 9.1 G/DL (11.5-16.0); LYMPHOCYTES # (AUTO) 0.7 X 10^3 (1.0-4.0); LYMPHOCYTES % (AUTO) 15 % (12-44); MEAN CORPUSCULAR HEMOGLOBIN 27 PG (25-34); MEAN CORPUSCULAR HGB CONC 30 G/DL (32-36); MEAN CORPUSCULAR VOLUME 91 FL (80-99); MEAN PLATELET VOLUME 10.3 FL (7.4-10.4); MONOCYTES # (AUTO) 0.4 X 10^3 (0.0-1.0); MONOCYTES % (AUTO) 10 % (0-12); NEUTROPHILS % (AUTO) 69 % (42-75); PLATELET COUNT 167 10^3/uL (130-400); RED BLOOD COUNT 3.34 10^6/uL (4.35-5.85); RED CELL DISTRIBUTION WIDTH 17.1 % (10.0-14.5); WHITE BLOOD COUNT 4.4 10^3/uL (4.3-11.0)
[2017-12-04 08:31] LABS: ALANINE AMINOTRANSFERASE 14 U/L (0-55); ALBUMIN 3.6 GM/DL (3.2-4.5); ALKALINE PHOSPHATASE 50 U/L (40-136); BILIRUBIN,TOTAL 0.4 MG/DL (0.1-1.0); BUN/CREATININE RATIO 22; CALCIUM 10.2 MG/DL (8.5-10.1); CARBON DIOXIDE 28 MMOL/L (21-32); CHLORIDE 103 MMOL/L (98-107); CREATININE SERUM 0.69 MG/DL (0.60-1.30); GFR ESTIMATED > 60; GLUCOSE 85 MG/DL (70-105); POTASSIUM 4.4 MMOL/L (3.6-5.0); SODIUM 140 MMOL/L (135-145); TOTAL PROTEIN 6.8 GM/DL (6.4-8.2)
== END 2017-12-04 07:44 | disposition home or self-care (01) ==
LOC: ONC 09:50
PROVIDERS: ATTEND Internal Medicine Hematology & Oncology
DX: Z51.11 Encounter for antineoplastic chemotherapy (principal); C34.01 Malignant neoplasm of right main bronchus; I73.00 Raynaud's syndrome without gangrene; Z79.899 Other long term (current) drug therapy
CPT/HCPCS: 36415; 36430; 36591; 80053; 83735; 84443; 85025; 96413

== ENCOUNTER → 2017-12-25 | Outpatient (CLI) | payer MEDICARE ==
[~2017-12-25] MED LIST changes: +BARIUM SUSPENSION 2.1% (VANILLA SILQ) 450 ML PO ONE; -DURVALUMAB 500 MG in NS (IVPB) CANCER CENTER 100 ML IV SCH; +IOHEXOL 350 MG/ML 100 ML (OMNIPAQUE 350) VIAL IV ONE; -NS (IVPB) CANCER CENTER 250 ML IV SCH; +NS 250 ML (IVPB) BAG IV ONE; -NS IV 500 ML (CANCER CENTER) 500 ML IV SCH; -NS IV 500 ML (CANCER CENTER) 500 ML ONE
--- NOTE | 2017-12-25 14:17 | Diagnostic Imaging Report ---
PROCEDURE: CT chest with contrast, CT abdomen with and without contrast. TECHNIQUE: Precontrast acquisitions were acquired through the abdomen. Multiple contiguous axial images were obtained through the chest and abdomen after administration of intravenous contrast. INDICATION: Lung carcinoma. Comparison is made with prior CT chest and abdomen study from 09/18/2017. CT chest: FINDINGS: A right chest wall port remains in place. There are changes of median sternotomy. No axillary lymphadenopathy is identified. The ill-defined soft tissue identified in the right hilum narrowing the right mainstem bronchus is again seen. This measures approximately 2.9 cm AP x 1.9 cm transverse compared with 2.6 x 2.2 cm. The enlarged right paratracheal node measures 1.9 x 1.3 cm compared with 2.1 x 1.2 cm. Soft tissue fullness in the right hilum extends inferiorly posterior to the bronchus intermedius on the right and lateral to the esophagus, similar to prior exam. Left hilum is unremarkable. No pericardial fluid is seen. Right-sided effusion persists. The right-sided effusion layers dependently to a thickness of 3 cm compared with 1.6 cm on prior. No left-sided effusion is seen. Previously seen patchy infiltrate in the superior segment of right lower lobe has resolved. There is some minimal compressive atelectasis in the right lower lobe. Minimal nodular densities in the right upper lobe are noted, likely atelectasis. Left lung is clear. IMPRESSION: 1. Right hilar mass and right paratracheal lymph node appear very similar when compared with prior CT 3 months earlier. Right-sided effusion appears to be slightly larger. There has been some improved aeration and clearing of infiltrates in the right lower lobe since prior study. CT abdomen: FINDINGS: No liver mass is seen. The gallbladder is unremarkable. The pancreas and spleen are unremarkable. No adrenal mass is identified. Kidneys are stable. Aorta remains heavily calcified and ectatic. No central retroperitoneal or mesenteric lymphadenopathy is seen. Colon again demonstrates moderate stool throughout. There is no ascites. IMPRESSION: Stable CT of the abdomen since exam from 09/18/2017. No abdominal lymphadenopathy or evidence of metastatic disease is identified. Dictated by: Dictated on workstation # [id number]
== END ==
LOC: RAD 12:04
PROVIDERS: ATTEND Internal Medicine Hematology & Oncology
DX: C34.90 Malignant neoplasm of unspecified part of unspecified bronchus or lung (principal)
CPT/HCPCS: 71260; 74170

== ENCOUNTER 2018-02-27 09:42 | Outpatient (RCR) | payer MEDICARE ==
[2018-01-02 10:37] LABS: BASOPHILS % (AUTO) 1 % (0-10); EOSINOPHILS # (AUTO) 0.2 10^3/uL (0.0-0.3); EOSINOPHILS % (AUTO) 5 % (0-10); HEMATOCRIT 31 % (35-52); HEMOGLOBIN 9.6 G/DL (11.5-16.0); LYMPHOCYTES # (AUTO) 0.7 X 10^3 (1.0-4.0); LYMPHOCYTES % (AUTO) 15 % (12-44); MEAN CORPUSCULAR HEMOGLOBIN 28 PG (25-34); MEAN CORPUSCULAR HGB CONC 31 G/DL (32-36); MEAN CORPUSCULAR VOLUME 91 FL (80-99); MONOCYTES # (AUTO) 0.5 X 10^3 (0.0-1.0); MONOCYTES % (AUTO) 12 % (0-12); NEUTROPHILS # (AUTO) 2.9 X 10^3 (1.8-7.8); NEUTROPHILS % (AUTO) 68 % (42-75); PLATELET COUNT 171 10^3/uL (130-400); RED BLOOD COUNT 3.46 10^6/uL (4.35-5.85); RED CELL DISTRIBUTION WIDTH 15.5 % (10.0-14.5); WHITE BLOOD COUNT 4.3 10^3/uL (4.3-11.0)
[2018-01-02 11:01] LABS: ALANINE AMINOTRANSFERASE 8 U/L (0-55); ALBUMIN 3.8 GM/DL (3.2-4.5); ALKALINE PHOSPHATASE 55 U/L (40-136); BILIRUBIN,TOTAL 0.3 MG/DL (0.1-1.0); BUN/CREATININE RATIO 14; CALCIUM 10.2 MG/DL (8.5-10.1); CARBON DIOXIDE 28 MMOL/L (21-32); CHLORIDE 101 MMOL/L (98-107); CREATININE SERUM 0.69 MG/DL (0.60-1.30); GFR ESTIMATED > 60; GLUCOSE 84 MG/DL (70-105); POTASSIUM 4.4 MMOL/L (3.6-5.0); SODIUM 138 MMOL/L (135-145)
[2018-01-30 09:52] LABS: BASOPHILS % (AUTO) 1 % (0-10); EOSINOPHILS # (AUTO) 0.2 10^3/uL (0.0-0.3); EOSINOPHILS % (AUTO) 3 % (0-10); HEMATOCRIT 33 % (35-52); HEMOGLOBIN 9.9 G/DL (11.5-16.0); LYMPHOCYTES # (AUTO) 0.7 X 10^3 (1.0-4.0); LYMPHOCYTES % (AUTO) 11 % (12-44); MEAN CORPUSCULAR HEMOGLOBIN 27 PG (25-34); MEAN CORPUSCULAR HGB CONC 30 G/DL (32-36); MEAN CORPUSCULAR VOLUME 91 FL (80-99); MEAN PLATELET VOLUME 10.1 FL (7.4-10.4); MONOCYTES # (AUTO) 0.7 X 10^3 (0.0-1.0); MONOCYTES % (AUTO) 11 % (0-12); NEUTROPHILS # (AUTO) 4.7 X 10^3 (1.8-7.8); NEUTROPHILS % (AUTO) 75 % (42-75); PLATELET COUNT 145 10^3/uL (130-400); RED BLOOD COUNT 3.61 10^6/uL (4.35-5.85); RED CELL DISTRIBUTION WIDTH 14.7 % (10.0-14.5); WHITE BLOOD COUNT 6.2 10^3/uL (4.3-11.0)
[2018-01-30 10:11] LABS: ALANINE AMINOTRANSFERASE 21 U/L (0-55); ALBUMIN 3.8 GM/DL (3.2-4.5); ALKALINE PHOSPHATASE 65 U/L (40-136); BILIRUBIN,TOTAL 0.5 MG/DL (0.1-1.0); BUN/CREATININE RATIO 21; CALCIUM 9.9 MG/DL (8.5-10.1); CARBON DIOXIDE 27 MMOL/L (21-32); CHLORIDE 104 MMOL/L (98-107); GFR ESTIMATED > 60; GLUCOSE 82 MG/DL (70-105); POTASSIUM 4.3 MMOL/L (3.6-5.0); SODIUM 140 MMOL/L (135-145); TOTAL PROTEIN 6.7 GM/DL (6.4-8.2)
[~2018-02-27] VITALS: Ht 152.4 cm; Wt 61.7 kg
[~2018-02-27 09:42] MED LIST changes: -BARIUM SUSPENSION 2.1% (VANILLA SILQ) 450 ML PO ONE; +DURVALUMAB 500 MG in NS (IVPB) CANCER CENTER 100 ML IV SCH; -IOHEXOL 350 MG/ML 100 ML (OMNIPAQUE 350) VIAL IV ONE; -NS 250 ML (IVPB) BAG IV ONE; +NS IV 500 ML (CANCER CENTER) 500 ML IV SCH
[2018-02-27 10:14] LABS: BASOPHILS % (AUTO) 1 % (0-10); EOSINOPHILS # (AUTO) 0.3 10^3/uL (0.0-0.3); EOSINOPHILS % (AUTO) 6 % (0-10); HEMATOCRIT 32 % (35-52); HEMOGLOBIN 9.7 G/DL (11.5-16.0); LYMPHOCYTES # (AUTO) 0.8 X 10^3 (1.0-4.0); LYMPHOCYTES % (AUTO) 18 % (12-44); MEAN CORPUSCULAR HEMOGLOBIN 28 PG (25-34); MEAN CORPUSCULAR HGB CONC 31 G/DL (32-36); MEAN CORPUSCULAR VOLUME 92 FL (80-99); MEAN PLATELET VOLUME 10.5 FL (7.4-10.4); MONOCYTES # (AUTO) 0.5 X 10^3 (0.0-1.0); MONOCYTES % (AUTO) 11 % (0-12); NEUTROPHILS # (AUTO) 2.8 X 10^3 (1.8-7.8); NEUTROPHILS % (AUTO) 65 % (42-75); PLATELET COUNT 158 10^3/uL (130-400); RED BLOOD COUNT 3.47 10^6/uL (4.35-5.85); RED CELL DISTRIBUTION WIDTH 14.7 % (10.0-14.5); WHITE BLOOD COUNT 4.3 10^3/uL (4.3-11.0)
[2018-02-27 10:39] LABS: ALANINE AMINOTRANSFERASE 17 U/L (0-55); ALBUMIN 3.7 GM/DL (3.2-4.5); ALKALINE PHOSPHATASE 60 U/L (40-136); BILIRUBIN,TOTAL 0.4 MG/DL (0.1-1.0); BUN/CREATININE RATIO 22; CALCIUM 9.8 MG/DL (8.5-10.1); CARBON DIOXIDE 27 MMOL/L (21-32); CHLORIDE 104 MMOL/L (98-107); CREATININE SERUM 0.74 MG/DL (0.60-1.30); GFR ESTIMATED > 60; GLUCOSE 75 MG/DL (70-105); POTASSIUM 4.5 MMOL/L (3.6-5.0); SODIUM 139 MMOL/L (135-145); TOTAL PROTEIN 6.7 GM/DL (6.4-8.2)
== END 2018-03-04 | disposition home or self-care (01) ==
LOC: ONC 09:42
PROVIDERS: ATTEND Internal Medicine Hematology & Oncology
DX: Z51.11 Encounter for antineoplastic chemotherapy (principal); C34.01 Malignant neoplasm of right main bronchus; I73.00 Raynaud's syndrome without gangrene; Z79.899 Other long term (current) drug therapy
CPT/HCPCS: 36591; 80053; 85025; 96365; 96413

== ENCOUNTER → 2018-03-20 | Outpatient (CLI) | payer MEDICARE ==
[~2018-03-20] MED LIST changes: +BARIUM SUSPENSION 2.1% (VANILLA SILQ) 450 ML PO ONE; -DURVALUMAB 500 MG in NS (IVPB) CANCER CENTER 100 ML IV SCH; +IOHEXOL 350 MG/ML 100 ML (OMNIPAQUE 350) VIAL IV ONE; +NS 100 ML (IVPB) BAG IV ONE; -NS IV 500 ML (CANCER CENTER) 500 ML IV SCH; +RECEIVED CONTRAST (Hold Metformin) IV SCH
--- NOTE | 2018-03-20 12:53 | Diagnostic Imaging Report ---
PROCEDURE: CT chest with contrast, CT abdomen and pelvis with and without contrast. TECHNIQUE: Pre and post intravenous contrast axial imaging of the abdomen and pelvis and post contrast axial imaging of the chest were performed. INDICATION: Lung carcinoma, followup. COMPARISON: Comparison is made with prior CT from 12/25/2017. FINDINGS: CT chest: Right chest wall port remains in place. No axillary lymphadenopathy is seen. A right paratracheal lymph node measures 2.2 x 1.3 cm compared with 1.9 x 1.3 cm. Soft tissue density in the right hilum appears to be less prominent, measuring approximately 2.3 x 1.7 cm compared with 2.9 x 1.9 cm. This again appears to narrow the right bronchus intermedius and passes posteriorly and adjacent to the esophagus. Soft tissue component at this location appears to be improved as well. Left hilum is unremarkable. No pericardial fluid is seen. There is small right pleural effusion which appears to be slightly decreased in size since prior study. No left-sided pleural fluid is identified. There is a slight irregular density in the right upper lobe, image 13 measuring 6 mm. This was not well seen on prior exam but could have been obscured. Remainder of the lung mcclain are unremarkable. IMPRESSION: There appears to be some decrease in prominence of right hilar soft tissue when compared with prior study from 12/25/2017. In addition, the right-sided pleural effusion has decreased slightly in size. Right paratracheal lymph node is stable. There is an indeterminate density in the right apex. Continued followup is recommended. CT abdomen and pelvis: No discrete liver mass is identified. There are some tiny low densities in the liver which are too small to characterize. No biliary ductal dilatation is seen. The pancreas and spleen are unremarkable. No adrenal mass is identified. Kidneys contain cortical low densities, suggestive of cysts. Aorta is heavily calcified but nonaneurysmal. No central retroperitoneal or mesenteric lymphadenopathy is seen. The bowel loops are normal in caliber. No definite pelvic lymphadenopathy is seen. Bladder is unremarkable. Sigmoid does show diverticulosis but no evidence of acute diverticulitis. IMPRESSION: Stable CT abdomen and pelvis. There is uncomplicated diverticulosis. No definite findings to suggest metastatic disease or lymphadenopathy are seen. Dictated by: Dictated on workstation # [id number]
== END ==
LOC: RAD 11:07
PROVIDERS: ATTEND Internal Medicine Hematology & Oncology
DX: C34.90 Malignant neoplasm of unspecified part of unspecified bronchus or lung (principal); J90 Pleural effusion, not elsewhere classified
CPT/HCPCS: 71260; 74178

== ENCOUNTER 2018-06-05 13:07 | Outpatient (RCR) | payer MEDICARE ==
[2018-03-27 09:58] LABS: BASOPHILS # (AUTO) 0.1 10^3/uL (0.0-0.1); BASOPHILS % (AUTO) 1 % (0-10); EOSINOPHILS # (AUTO) 0.2 10^3/uL (0.0-0.3); EOSINOPHILS % (AUTO) 5 % (0-10); HEMATOCRIT 32 % (35-52); HEMOGLOBIN 9.8 G/DL (11.5-16.0); LYMPHOCYTES # (AUTO) 0.7 X 10^3 (1.0-4.0); LYMPHOCYTES % (AUTO) 14 % (12-44); MEAN CORPUSCULAR HEMOGLOBIN 28 PG (25-34); MEAN CORPUSCULAR HGB CONC 31 G/DL (32-36); MEAN CORPUSCULAR VOLUME 92 FL (80-99); MEAN PLATELET VOLUME 10.2 FL (7.4-10.4); MONOCYTES # (AUTO) 0.5 X 10^3 (0.0-1.0); MONOCYTES % (AUTO) 9 % (0-12); NEUTROPHILS # (AUTO) 3.6 X 10^3 (1.8-7.8); NEUTROPHILS % (AUTO) 72 % (42-75); PLATELET COUNT 150 10^3/uL (130-400); RED CELL DISTRIBUTION WIDTH 14.8 % (10.0-14.5)
[2018-03-27 10:15] LABS: ALANINE AMINOTRANSFERASE 10 U/L (0-55); ALBUMIN 3.7 GM/DL (3.2-4.5); ALKALINE PHOSPHATASE 58 U/L (40-136); BILIRUBIN,TOTAL 0.4 MG/DL (0.1-1.0); BUN/CREATININE RATIO 26; CALCIUM 10.5 MG/DL (8.5-10.1); CARBON DIOXIDE 29 MMOL/L (21-32); CREATININE SERUM 0.73 MG/DL (0.60-1.30); GFR ESTIMATED > 60; GLUCOSE 85 MG/DL (70-105); TOTAL PROTEIN 6.8 GM/DL (6.4-8.2)
[2018-03-27 10:36] LABS: CHLORIDE 103 MMOL/L (98-107); POTASSIUM 4.5 MMOL/L (3.6-5.0); SODIUM 139 MMOL/L (135-145)
[2018-04-24 09:40] LABS: BASOPHILS % (AUTO) 1 % (0-10); EOSINOPHILS # (AUTO) 0.3 10^3/uL (0.0-0.3); EOSINOPHILS % (AUTO) 6 % (0-10); HEMATOCRIT 34 % (35-52); HEMOGLOBIN 10.3 G/DL (11.5-16.0); LYMPHOCYTES # (AUTO) 0.7 X 10^3 (1.0-4.0); LYMPHOCYTES % (AUTO) 14 % (12-44); MEAN CORPUSCULAR HEMOGLOBIN 28 PG (25-34); MEAN CORPUSCULAR HGB CONC 30 G/DL (32-36); MEAN CORPUSCULAR VOLUME 93 FL (80-99); MEAN PLATELET VOLUME 9.9 FL (7.4-10.4); MONOCYTES # (AUTO) 0.4 X 10^3 (0.0-1.0); MONOCYTES % (AUTO) 8 % (0-12); NEUTROPHILS # (AUTO) 3.5 X 10^3 (1.8-7.8); NEUTROPHILS % (AUTO) 72 % (42-75); PLATELET COUNT 174 10^3/uL (130-400); RED CELL DISTRIBUTION WIDTH 14.4 % (10.0-14.5); WHITE BLOOD COUNT 4.9 10^3/uL (4.3-11.0)
[2018-04-24 09:58] LABS: ALANINE AMINOTRANSFERASE 11 U/L (0-55); ALBUMIN 3.8 GM/DL (3.2-4.5); ALKALINE PHOSPHATASE 77 U/L (40-136); BILIRUBIN,TOTAL 0.4 MG/DL (0.1-1.0); BUN/CREATININE RATIO 22; CALCIUM 10.6 MG/DL (8.5-10.1); CARBON DIOXIDE 30 MMOL/L (21-32); CHLORIDE 100 MMOL/L (98-107); CREATININE SERUM 0.72 MG/DL (0.60-1.30); GFR ESTIMATED > 60; GLUCOSE 86 MG/DL (70-105); POTASSIUM 4.5 MMOL/L (3.6-5.0); SODIUM 141 MMOL/L (135-145)
[2018-05-22 10:20] LABS: BASOPHILS % (AUTO) 0 % (0-10); EOSINOPHILS # (AUTO) 0.1 10^3/uL (0.0-0.3); EOSINOPHILS % (AUTO) 2 % (0-10); HEMATOCRIT 36 % (35-52); HEMOGLOBIN 10.8 G/DL (11.5-16.0); LYMPHOCYTES # (AUTO) 0.5 X 10^3 (1.0-4.0); LYMPHOCYTES % (AUTO) 6 % (12-44); MEAN CORPUSCULAR HEMOGLOBIN 28 PG (25-34); MEAN CORPUSCULAR HGB CONC 30 G/DL (32-36); MEAN CORPUSCULAR VOLUME 94 FL (80-99); MEAN PLATELET VOLUME 10.6 FL (7.4-10.4); MONOCYTES # (AUTO) 0.6 X 10^3 (0.0-1.0); MONOCYTES % (AUTO) 7 % (0-12); NEUTROPHILS # (AUTO) 7.5 X 10^3 (1.8-7.8); NEUTROPHILS % (AUTO) 86 % (42-75); PLATELET COUNT 133 10^3/uL (130-400); RED CELL DISTRIBUTION WIDTH 14.6 % (10.0-14.5); WHITE BLOOD COUNT 8.7 10^3/uL (4.3-11.0)
[2018-05-22 10:40] LABS: ALANINE AMINOTRANSFERASE 16 U/L (0-55); ALKALINE PHOSPHATASE 83 U/L (40-136); BILIRUBIN,TOTAL 0.6 MG/DL (0.1-1.0); BUN/CREATININE RATIO 16; CALCIUM 9.9 MG/DL (8.5-10.1); CARBON DIOXIDE 29 MMOL/L (21-32); CHLORIDE 99 MMOL/L (98-107); CREATININE SERUM 0.69 MG/DL (0.60-1.30); GFR ESTIMATED > 60; GLUCOSE 86 MG/DL (70-105); POTASSIUM 4.2 MMOL/L (3.6-5.0); SODIUM 138 MMOL/L (135-145); TOTAL PROTEIN 7.1 GM/DL (6.4-8.2)
[~2018-06-05] VITALS: Ht 152.4 cm; Wt 61.7 kg
[~2018-06-05 13:07] MED LIST changes: -BARIUM SUSPENSION 2.1% (VANILLA SILQ) 450 ML PO ONE; +DURVALUMAB 500 MG in NS (IVPB) CANCER CENTER 100 ML IV SCH; -IOHEXOL 350 MG/ML 100 ML (OMNIPAQUE 350) VIAL IV ONE; -NS 100 ML (IVPB) BAG IV ONE; +NS IV 500 ML (CANCER CENTER) 500 ML IV SCH; -RECEIVED CONTRAST (Hold Metformin) IV SCH
== END 2018-06-11 | disposition home or self-care (01) ==
LOC: ONC 13:07
PROVIDERS: ATTEND Internal Medicine Hematology & Oncology
DX: Z51.11 Encounter for antineoplastic chemotherapy (principal); C34.01 Malignant neoplasm of right main bronchus; I73.00 Raynaud's syndrome without gangrene; Z79.899 Other long term (current) drug therapy
CPT/HCPCS: 36591; 80053; 85025; 96413

== ENCOUNTER → 2018-06-12 | Outpatient (CLI) | payer MEDICARE ==
[~2018-06-12] MED LIST changes: -DURVALUMAB 500 MG in NS (IVPB) CANCER CENTER 100 ML IV SCH; +HOLD METFORMIN - RECEIVED CONTRAST 20 ML VIAL IV SCH; +IOHEXOL 350 MG/ML 100 ML (OMNIPAQUE 350) VIAL IV ONE; -NS IV 500 ML (CANCER CENTER) 500 ML IV SCH
--- NOTE | 2018-06-12 15:52 | Diagnostic Imaging Report ---
PROCEDURE: CT chest with contrast, CT abdomen with and without contrast. TECHNIQUE: Precontrast acquisitions were acquired through the abdomen. Multiple contiguous axial images were obtained through the chest and abdomen after administration of intravenous contrast. Auto Exposure Controls were utilized during the CT exam to meet ALARA standards for radiation dose reduction. INDICATION: Lung cancer. COMPARISON: Comparison is made to prior examination 03/20/2018. FINDINGS: There is some atherosclerotic calcification of the aorta which is without evidence of dissection. There is a persistent right pleural effusion. There is some minimal scarring in the right lung base. There is unchanged density along the medial aspect of the right lung apex. There is no pneumothorax. There is a pretracheal lymph node measuring 2 x 1.2 cm compared to previous measurement of 2.2 x 1.3 cm. There is some questionable mucosal thickening in the distal esophagus The liver is normal in size without focal lesions. Gallbladder is unremarkable. There is no biliary ductal dilatation. Spleen is normal. The pancreas and adrenal glands are unremarkable. There are bilateral renal cysts. Abdominal aorta demonstrates some moderate atherosclerotic calcification. There is a 3.1 cm infrarenal abdominal aortic aneurysm. There appears to be a small penetrating ulcer along the posterior aspect of the aneurysm. The bowel gas pattern is nonspecific. There is no free air. There are now severe compression fractures of T5 and T6, both of which demonstrate significant sclerosis. Possibility of these being pathologic fractures cannot be excluded. IMPRESSION: Stable soft tissue prominence in the right hilum with stable pretracheal lymph node and unchanged pleural-based density along the medial aspect of right lung apex. There is a persistent right pleural effusion. Interval development of severe compression fractures of T5 and T6. Possibility of these being pathologic fractures cannot be excluded. Recommend clinical correlation and if warranted followup with PET scan. 3.1 cm infrarenal abdominal aortic aneurysm with penetrating ulcer projecting off the posterior aspect of the aneurysm. Dictated by: Dictated on workstation # [id number]
== END ==
LOC: RAD 13:58
PROVIDERS: ATTEND Internal Medicine Hematology & Oncology
DX: C34.31 Malignant neoplasm of lower lobe, right bronchus or lung (principal); J90 Pleural effusion, not elsewhere classified; S22.050A Wedge compression fracture of T5-T6 vertebra, initial encounter for closed fracture; I71.4 Abdominal aortic aneurysm, without rupture
CPT/HCPCS: 71260; 74170

== ENCOUNTER → 2018-06-27 | Outpatient (CLI) | payer MEDICARE ==
[~2018-06-27] MED LIST changes: -HOLD METFORMIN - RECEIVED CONTRAST 20 ML VIAL IV SCH; -IOHEXOL 350 MG/ML 100 ML (OMNIPAQUE 350) VIAL IV ONE; +RT-ALBUTEROL SULF 2.5 MG/3 ML PRE-MIX VIAL INH ONE
== END ==
LOC: RT 11:15
PROVIDERS: ATTEND Internal Medicine Hematology & Oncology
DX: R06.02 Shortness of breath (principal)
CPT/HCPCS: 94060; 94726; 94729

== ENCOUNTER → 2018-09-05 | Outpatient (CLI) | payer MEDICARE ==
[~2018-09-05] MED LIST changes: +CATHETER FLUSH 10 ML SYR IV PRN; +HOLD METFORMIN - RECEIVED CONTRAST 20 ML VIAL IV SCH; +IOHEXOL 350 MG/ML 100 ML (OMNIPAQUE 350) VIAL IV ONE; +NS 100 ML (IVPB) BAG IV ONE; -RT-ALBUTEROL SULF 2.5 MG/3 ML PRE-MIX VIAL INH ONE
--- NOTE | 2018-09-05 13:04 | Diagnostic Imaging Report ---
PROCEDURE: CT chest with contrast, CT abdomen with and without contrast. TECHNIQUE: Precontrast acquisitions were acquired through the abdomen. Multiple contiguous axial images were obtained through the chest and abdomen after administration of intravenous contrast. Auto Exposure Controls were utilized during the CT exam to meet ALARA standards for radiation dose reduction. DATE: September 05, 2018. COMPARISON: CT chest and abdomen June 12, 2018. INDICATION: 82-year-old female, history of lung cancer. FINDINGS: There is a right lower lobe pulmonary nodule in the superior and medial aspect of the right lower lobe on axial image 20 which measures 1.6 cm in size. This is unchanged since June 12, 2018. There is abnormal nodular soft tissue attenuation in the right paratracheal region surrounding the right middle lobe bronchus which measures 1.9 x 2.5 cm in axial dimension and on axial image 18. This is essentially unchanged in size since June 12, 2018. There is a right paratracheal lymph node on axial image 16 which measures 12 mm in short axis which is unchanged since recent comparison CT. There is no new or enlarging mediastinal or hilar lymph node. There is no abnormally enlarged axillary lymph node. There is no identified pulmonary embolus. The main pulmonary artery diameter measures 3.2 cm which is above the upper limits of normal and may relate to pulmonary artery hypertension. There are atherosclerotic calcifications. There is no pericardial effusion. There is aneurysmal enlargement of the infrarenal abdominal aorta measuring up to 3.2 x 3.1 cm in diameter. There is a small right pleural effusion. The liver is normal in size and contour. There is no identified liver lesion. The gallbladder is unremarkable. There is no intrahepatic or extrahepatic bile duct dilation. The main pancreatic duct is not abnormally dilated. There is a low-attenuation lesion in the pancreatic body on axial image 49 which measures 6 mm in size. This is unchanged since June 12, 2018. The spleen is normal in size. The adrenal glands are unremarkable. There are low-attenuation renal lesions which are compatible with benign renal cysts. Left renal cysts are noted on axial image 52 and the right renal cyst is noted on axial image 54. There is no hydrocephalus. The visualized segments of the intestinal tract are not distended. There is no free intraperitoneal air. There is no drainable fluid collection. There does appear to be wall thickening of the esophagus at the level of the nicho and just below the level of the nicho. There is no identified abnormally enlarged lymph node in the abdomen which meets CT size criteria for adenopathy. There are multilevel degenerative changes of the spine. There are median sternotomy wires. There are compression deformities of T5 and T6 with complete vertebral body height loss at T5 and roughly 80% vertebral body height loss at T6. There is retropulsion of T5 beyond the expected posterior vertebral body margin by 5 mm with associated at least mild to moderate spinal stenosis. There is focal kyphosis centered at this level. These compression deformities are unchanged since at least June 12, 2018. IMPRESSION: CT CHEST AND ABDOMEN. 1. Stable right lower lobe pulmonary nodule measuring 1.6 cm in size since June 12, 2018. No new or enlarging pulmonary nodule. 2. Abnormal soft tissue attenuation surrounding the right middle lobe bronchus in the right hilar region which is stable since June 12, 2018. 3. Stable right paratracheal lymph node. 4. Small right pleural effusion which is unchanged since comparison exam. 5. No evidence of metastatic disease in the abdomen. 6. Infrarenal abdominal aortic aneurysm. 7. Unchanged compression deformities of T5 and T6 since June 12, 2018. Dictated by: Dictated on workstation # [id number]
== END ==
LOC: RAD 10:55
PROVIDERS: ATTEND Internal Medicine Hematology & Oncology
DX: C34.31 Malignant neoplasm of lower lobe, right bronchus or lung (principal); J90 Pleural effusion, not elsewhere classified; I71.4 Abdominal aortic aneurysm, without rupture; M43.8X4 Other specified deforming dorsopathies, thoracic region; Z98.890 Other specified postprocedural states
CPT/HCPCS: 71260; 74170

== ENCOUNTER 2018-09-11 10:37 | Outpatient (RCR) | payer MEDICARE ==
[2018-06-19 09:23] LABS: BASOPHILS % (AUTO) 1 % (0-10); EOSINOPHILS # (AUTO) 0.2 10^3/uL (0.0-0.3); EOSINOPHILS % (AUTO) 6 % (0-10); HEMATOCRIT 37 % (35-52); LYMPHOCYTES # (AUTO) 0.6 X 10^3 (1.0-4.0); LYMPHOCYTES % (AUTO) 17 % (12-44); MEAN CORPUSCULAR HEMOGLOBIN 28 PG (25-34); MEAN CORPUSCULAR HGB CONC 30 G/DL (32-36); MEAN CORPUSCULAR VOLUME 95 FL (80-99); MEAN PLATELET VOLUME 10.2 FL (7.4-10.4); MONOCYTES # (AUTO) 0.4 X 10^3 (0.0-1.0); MONOCYTES % (AUTO) 10 % (0-12); NEUTROPHILS # (AUTO) 2.5 X 10^3 (1.8-7.8); NEUTROPHILS % (AUTO) 67 % (42-75); PLATELET COUNT 151 10^3/uL (130-400); RED CELL DISTRIBUTION WIDTH 14.1 % (10.0-14.5); WHITE BLOOD COUNT 3.7 10^3/uL (4.3-11.0)
[2018-06-19 09:45] LABS: ALANINE AMINOTRANSFERASE 11 U/L (0-55); ALBUMIN 3.8 GM/DL (3.2-4.5); ALKALINE PHOSPHATASE 71 U/L (40-136); BILIRUBIN,TOTAL 0.3 MG/DL (0.1-1.0); BUN/CREATININE RATIO 15; CALCIUM 10.1 MG/DL (8.5-10.1); CARBON DIOXIDE 32 MMOL/L (21-32); CHLORIDE 102 MMOL/L (98-107); CREATININE SERUM 0.71 MG/DL (0.60-1.30); GFR ESTIMATED > 60; GLUCOSE 86 MG/DL (70-105); POTASSIUM 4.5 MMOL/L (3.6-5.0); SODIUM 142 MMOL/L (135-145); TOTAL PROTEIN 6.8 GM/DL (6.4-8.2)
[2018-07-17 09:29] LABS: BASOPHILS # (AUTO) 0.1 10^3/uL (0.0-0.1); BASOPHILS % (AUTO) 1 % (0-10); EOSINOPHILS # (AUTO) 0.2 10^3/uL (0.0-0.3); EOSINOPHILS % (AUTO) 4 % (0-10); HEMATOCRIT 37 % (35-52); HEMOGLOBIN 10.8 G/DL (11.5-16.0); LYMPHOCYTES # (AUTO) 0.8 X 10^3 (1.0-4.0); LYMPHOCYTES % (AUTO) 16 % (12-44); MEAN CORPUSCULAR HEMOGLOBIN 29 PG (25-34); MEAN CORPUSCULAR HGB CONC 30 G/DL (32-36); MEAN CORPUSCULAR VOLUME 97 FL (80-99); MEAN PLATELET VOLUME 10.5 FL (7.4-10.4); MONOCYTES # (AUTO) 0.5 X 10^3 (0.0-1.0); MONOCYTES % (AUTO) 10 % (0-12); NEUTROPHILS # (AUTO) 3.3 X 10^3 (1.8-7.8); NEUTROPHILS % (AUTO) 69 % (42-75); PLATELET COUNT 137 10^3/uL (130-400); RED CELL DISTRIBUTION WIDTH 14.1 % (10.0-14.5); WHITE BLOOD COUNT 4.8 10^3/uL (4.3-11.0)
[2018-07-17 09:47] LABS: ALANINE AMINOTRANSFERASE 13 U/L (0-55); ALBUMIN 3.9 GM/DL (3.2-4.5); ALKALINE PHOSPHATASE 59 U/L (40-136); BILIRUBIN,TOTAL 0.4 MG/DL (0.1-1.0); BUN/CREATININE RATIO 14; CALCIUM 10.3 MG/DL (8.5-10.1); CARBON DIOXIDE 31 MMOL/L (21-32); CHLORIDE 102 MMOL/L (98-107); CREATININE SERUM 0.72 MG/DL (0.60-1.30); GFR ESTIMATED > 60; GLUCOSE 86 MG/DL (70-105); POTASSIUM 4.7 MMOL/L (3.6-5.0); SODIUM 141 MMOL/L (135-145); TOTAL PROTEIN 6.7 GM/DL (6.4-8.2)
[2018-08-14 09:23] LABS: BASOPHILS % (AUTO) 1 % (0-10); EOSINOPHILS # (AUTO) 0.1 10^3/uL (0.0-0.3); EOSINOPHILS % (AUTO) 3 % (0-10); HEMATOCRIT 36 % (35-52); HEMOGLOBIN 10.9 G/DL (11.5-16.0); LYMPHOCYTES # (AUTO) 0.6 X 10^3 (1.0-4.0); LYMPHOCYTES % (AUTO) 16 % (12-44); MEAN CORPUSCULAR HEMOGLOBIN 29 PG (25-34); MEAN CORPUSCULAR HGB CONC 30 G/DL (32-36); MEAN CORPUSCULAR VOLUME 96 FL (80-99); MEAN PLATELET VOLUME 10.4 FL (7.4-10.4); MONOCYTES # (AUTO) 0.4 X 10^3 (0.0-1.0); MONOCYTES % (AUTO) 10 % (0-12); NEUTROPHILS # (AUTO) 2.6 X 10^3 (1.8-7.8); NEUTROPHILS % (AUTO) 70 % (42-75); PLATELET COUNT 161 10^3/uL (130-400); RED CELL DISTRIBUTION WIDTH 14.1 % (10.0-14.5); WHITE BLOOD COUNT 3.7 10^3/uL (4.3-11.0)
[2018-08-14 09:42] LABS: ALANINE AMINOTRANSFERASE 14 U/L (0-55); ALKALINE PHOSPHATASE 60 U/L (40-136); BILIRUBIN,TOTAL 0.4 MG/DL (0.1-1.0); BUN/CREATININE RATIO 18; CALCIUM 9.9 MG/DL (8.5-10.1); CARBON DIOXIDE 30 MMOL/L (21-32); CHLORIDE 102 MMOL/L (98-107); CREATININE SERUM 0.76 MG/DL (0.60-1.30); GFR ESTIMATED > 60; GLUCOSE 84 MG/DL (70-105); POTASSIUM 4.5 MMOL/L (3.6-5.0); SODIUM 139 MMOL/L (135-145); TOTAL PROTEIN 6.7 GM/DL (6.4-8.2)
[~2018-09-11] VITALS: Ht 152.4 cm; Wt 63.5 kg
[~2018-09-11 10:37] MED LIST changes: -CATHETER FLUSH 10 ML SYR IV PRN; +DURVALUMAB 500 MG in NS (IVPB) CANCER CENTER 100 ML IV SCH; -HOLD METFORMIN - RECEIVED CONTRAST 20 ML VIAL IV SCH; -IOHEXOL 350 MG/ML 100 ML (OMNIPAQUE 350) VIAL IV ONE; -NS 100 ML (IVPB) BAG IV ONE; +NS IV 500 ML (CANCER CENTER) 500 ML IV SCH
[2018-09-11 11:30] LABS: BASOPHILS % (AUTO) 1 % (0-10); EOSINOPHILS # (AUTO) 0.2 10^3/uL (0.0-0.3); EOSINOPHILS % (AUTO) 4 % (0-10); HEMATOCRIT 35 % (35-52); HEMOGLOBIN 10.4 G/DL (11.5-16.0); LYMPHOCYTES # (AUTO) 0.7 X 10^3 (1.0-4.0); LYMPHOCYTES % (AUTO) 17 % (12-44); MEAN CORPUSCULAR HEMOGLOBIN 29 PG (25-34); MEAN CORPUSCULAR HGB CONC 30 G/DL (32-36); MEAN CORPUSCULAR VOLUME 97 FL (80-99); MEAN PLATELET VOLUME 10.2 FL (7.4-10.4); MONOCYTES # (AUTO) 0.4 X 10^3 (0.0-1.0); MONOCYTES % (AUTO) 10 % (0-12); NEUTROPHILS # (AUTO) 2.6 X 10^3 (1.8-7.8); NEUTROPHILS % (AUTO) 68 % (42-75); PLATELET COUNT 155 10^3/uL (130-400); WHITE BLOOD COUNT 3.9 10^3/uL (4.3-11.0)
[2018-09-11 12:02] LABS: ALANINE AMINOTRANSFERASE 11 U/L (0-55); ALBUMIN 3.8 GM/DL (3.2-4.5); ALKALINE PHOSPHATASE 54 U/L (40-136); BILIRUBIN,TOTAL 0.3 MG/DL (0.1-1.0); BUN/CREATININE RATIO 22; CALCIUM 9.5 MG/DL (8.5-10.1); CARBON DIOXIDE 31 MMOL/L (21-32); CHLORIDE 103 MMOL/L (98-107); CREATININE SERUM 0.78 MG/DL (0.60-1.30); GFR ESTIMATED > 60; GLUCOSE 98 MG/DL (70-105); POTASSIUM 4.1 MMOL/L (3.6-5.0); SODIUM 140 MMOL/L (135-145); TOTAL PROTEIN 6.6 GM/DL (6.4-8.2)
== END 2018-09-17 | disposition home or self-care (01) ==
LOC: ONC 10:37
PROVIDERS: ATTEND Internal Medicine Hematology & Oncology
DX: Z51.11 Encounter for antineoplastic chemotherapy (principal); C34.01 Malignant neoplasm of right main bronchus; I73.00 Raynaud's syndrome without gangrene; Z79.899 Other long term (current) drug therapy
CPT/HCPCS: 36591; 80053; 85025; 96413

== ENCOUNTER 2018-10-09 10:47 | Outpatient (RCR) | payer MEDICARE ==
[2018-10-09 11:08] LABS: BASOPHILS % (AUTO) 0 % (0-10); EOSINOPHILS # (AUTO) 0.2 10^3/uL (0.0-0.3); EOSINOPHILS % (AUTO) 2 % (0-10); HEMATOCRIT 39 % (35-52); HEMOGLOBIN 11.6 G/DL (11.5-16.0); LYMPHOCYTES # (AUTO) 0.9 X 10^3 (1.0-4.0); LYMPHOCYTES % (AUTO) 9 % (12-44); MEAN CORPUSCULAR HEMOGLOBIN 29 PG (25-34); MEAN CORPUSCULAR HGB CONC 30 G/DL (32-36); MEAN CORPUSCULAR VOLUME 97 FL (80-99); MEAN PLATELET VOLUME 10.2 FL (7.4-10.4); MONOCYTES # (AUTO) 0.8 X 10^3 (0.0-1.0); MONOCYTES % (AUTO) 8 % (0-12); NEUTROPHILS % (AUTO) 82 % (42-75); PLATELET COUNT 183 10^3/uL (130-400); RED CELL DISTRIBUTION WIDTH 13.7 % (10.0-14.5); WHITE BLOOD COUNT 9.8 10^3/uL (4.3-11.0)
[2018-10-09 11:26] LABS: ALANINE AMINOTRANSFERASE 27 U/L (0-55); ALBUMIN 3.8 GM/DL (3.2-4.5); ALKALINE PHOSPHATASE 56 U/L (40-136); BILIRUBIN,TOTAL 0.5 MG/DL (0.1-1.0); BUN/CREATININE RATIO 18; CALCIUM 9.8 MG/DL (8.5-10.1); CARBON DIOXIDE 31 MMOL/L (21-32); CHLORIDE 100 MMOL/L (98-107); CREATININE SERUM 0.78 MG/DL (0.60-1.30); GFR ESTIMATED > 60; GLUCOSE 76 MG/DL (70-105); POTASSIUM 4.3 MMOL/L (3.6-5.0); SODIUM 140 MMOL/L (135-145); TOTAL PROTEIN 6.5 GM/DL (6.4-8.2)
== END 2018-12-24 | disposition home or self-care (01) ==
LOC: ONC 10:47
PROVIDERS: ATTEND Internal Medicine Hematology & Oncology
DX: Z51.11 Encounter for antineoplastic chemotherapy (principal); C34.01 Malignant neoplasm of right main bronchus; I73.00 Raynaud's syndrome without gangrene; Z79.899 Other long term (current) drug therapy
CPT/HCPCS: 36591; 80053; 85025; 96413

== ENCOUNTER → 2018-12-31 | Outpatient (CLI) | payer MEDICARE ==
[~2018-12-31] MED LIST changes: +CATHETER FLUSH 10 ML SYR IV PRN; -DURVALUMAB 500 MG in NS (IVPB) CANCER CENTER 100 ML IV SCH; +HOLD METFORMIN - RECEIVED CONTRAST 20 ML VIAL IV SCH; +IOHEXOL 350 MG/ML 100 ML (OMNIPAQUE 350) VIAL IV ONE; +NS 100 ML (IVPB) BAG IV ONE; -NS IV 500 ML (CANCER CENTER) 500 ML IV SCH
--- NOTE | 2018-12-31 12:22 | Diagnostic Imaging Report ---
EXAMINATION: CT chest with contrast, CT abdomen with and without contrast. TECHNIQUE: Precontrast acquisitions were acquired through the abdomen. Multiple contiguous axial images were obtained through the chest and abdomen after administration of intravenous contrast. All CT scans use one or more of the following dose optimizing techniques: automated exposure control, MA and/or KvP adjustment based on a patient size and exam type, or iterative reconstruction. HISTORY: Lung cancer. COMPARISON: 09/05/2018. FINDINGS: Soft tissue thickening about the right mainstem bronchus is again seen. There is mild narrowing of the right mainstem bronchus. The degree of thickening is unchanged. The maximal thickness of the tissue along the posterior aspect of the right mainstem bronchus is 10 mm, previously 11 mm. There is a stable small right pleural effusion. A 15 mm nodular area of scarring or atelectasis in the superior segment of the right lower lobe is unchanged. Heart size is normal. No pericardial effusion. Aorta is normal in caliber. There is no axillary or supraclavicular lymphadenopathy. There is no mediastinal lymphadenopathy. There are mild coronary artery calcifications. There has been a median sternotomy. There has been coronary artery bypass grafting. Right port catheter tip terminates in the superior vena cava. The liver is normal without focal lesion. There is no biliary ductal dilation. Gallbladder is normal. Pancreas is normal. Spleen is normal. Adrenal glands are normal. The kidneys contain small cysts but are otherwise normal. There is no hydronephrosis. Visualized bowel is normal in caliber without obstruction or inflammation. No free fluid or air. No abdominal lymphadenopathy. Aorta is normal in caliber without aneurysm. There are unchanged severe at T5 and T6 compression fractures with associated focal kyphosis. IMPRESSION: 1. Stable soft tissue thickening about the right mainstem bronchus and stable small right pleural effusion. 2. Stable severe T5 and T6 compression fractures with focal kyphosis. 3. No new metastatic disease. Dictated by: Dictated on workstation # [id number]
== END ==
LOC: RAD 10:53
PROVIDERS: ATTEND Internal Medicine Hematology & Oncology
DX: C34.31 Malignant neoplasm of lower lobe, right bronchus or lung (principal); M48.54XA Collapsed vertebra, not elsewhere classified, thoracic region, initial encounter for fracture; M40.294 Other kyphosis, thoracic region; J90 Pleural effusion, not elsewhere classified; Z98.890 Other specified postprocedural states
CPT/HCPCS: 71260; 74170

== ENCOUNTER 2019-01-08 10:20 | Outpatient (RCR) | payer MEDICARE ==
[2018-12-31 10:50] LABS: BASOPHILS % (AUTO) 1 % (0-10); EOSINOPHILS # (AUTO) 0.1 10^3/uL (0.0-0.3); EOSINOPHILS % (AUTO) 3 % (0-10); HEMATOCRIT 36 % (35-52); HEMOGLOBIN 10.6 G/DL (11.5-16.0); LYMPHOCYTES # (AUTO) 0.6 X 10^3 (1.0-4.0); LYMPHOCYTES % (AUTO) 14 % (12-44); MEAN CORPUSCULAR HGB CONC 29 G/DL (32-36); MEAN CORPUSCULAR VOLUME 97 FL (80-99); MONOCYTES # (AUTO) 0.4 X 10^3 (0.0-1.0); MONOCYTES % (AUTO) 10 % (0-12); NEUTROPHILS # (AUTO) 2.9 X 10^3 (1.8-7.8); NEUTROPHILS % (AUTO) 72 % (42-75); PLATELET COUNT 154 10^3/uL (130-400); RED CELL DISTRIBUTION WIDTH 13.7 % (10.0-14.5); WHITE BLOOD COUNT 4.1 10^3/uL (4.3-11.0)
[2018-12-31 11:04] LABS: MEAN CORPUSCULAR HEMOGLOBIN 28 PG (25-34)
[2018-12-31 11:14] LABS: ALANINE AMINOTRANSFERASE 15 U/L (0-55); ALKALINE PHOSPHATASE 60 U/L (40-136); BILIRUBIN,TOTAL 0.3 MG/DL (0.1-1.0); BUN/CREATININE RATIO 22; CARBON DIOXIDE 33 MMOL/L (21-32); CHLORIDE 101 MMOL/L (98-107); CREATININE SERUM 0.76 MG/DL (0.60-1.30); GFR ESTIMATED > 60; GLUCOSE 81 MG/DL (70-105); POTASSIUM 4.5 MMOL/L (3.6-5.0); SODIUM 141 MMOL/L (135-145); TOTAL PROTEIN 6.9 GM/DL (6.4-8.2)
[~2019-01-08 10:20] MED LIST changes: -CATHETER FLUSH 10 ML SYR IV PRN; -HOLD METFORMIN - RECEIVED CONTRAST 20 ML VIAL IV SCH; -IOHEXOL 350 MG/ML 100 ML (OMNIPAQUE 350) VIAL IV ONE; -NS 100 ML (IVPB) BAG IV ONE
[2019-01-16] MEDS ORDERED: GABA-488 PO (08:51)
[2019-01-16] MEDS ORDERED: FEXO-46 PO (08:51)
[2019-01-16] MEDS ORDERED: MONT10TA24 PO (08:51)
[2019-01-16] MEDS ORDERED: MAGN400T8 PO (08:52)
[2019-01-16] MEDS ORDERED: ASPI-983 PO (08:52)
[2019-01-16] MEDS ORDERED: IPRA3AMP31 NEB (10:19)
[2019-01-23] MEDS ORDERED: PRED10TA22 PO (09:25)
[2019-01-23] MEDS ORDERED: DILT120C82 PO (09:25)
[2019-01-23] MEDS ORDERED: AMIO200T4 PO (09:25)
[2019-01-23] MEDS ORDERED: APIX5TAB PO (09:25)
[2019-01-28] MEDS ORDERED: APIX5TAB PO (09:08)
[2019-01-28] MEDS ORDERED: PRD10T PO (09:08)
[2019-01-28] MEDS ORDERED: AMIO200T4 PO (09:12)
[2019-01-28] MEDS ORDERED: DILT-27 PO (09:12)
== END 2019-03-31 | disposition home or self-care (01) ==
LOC: ONC 10:20
PROVIDERS: ATTEND Internal Medicine Hematology & Oncology
DX: C34.11 Malignant neoplasm of upper lobe, right bronchus or lung (principal); I73.00 Raynaud's syndrome without gangrene; J43.9 Emphysema, unspecified; J90 Pleural effusion, not elsewhere classified; I87.2 Venous insufficiency (chronic) (peripheral); I11.9 Hypertensive heart disease without heart failure; E78.00 Pure hypercholesterolemia, unspecified; M19.90 Unspecified osteoarthritis, unspecified site; J30.9 Allergic rhinitis, unspecified; G62.9 Polyneuropathy, unspecified; Z90.710 Acquired absence of both cervix and uterus; Z95.5 Presence of coronary angioplasty implant and graft; Z79.899 Other long term (current) drug therapy
CPT/HCPCS: 36591; 80053; 85025; 99213

== ENCOUNTER 2019-01-15 12:34 | Inpatient (IN) | payer MEDICARE ==
[~2019-01-15] VITALS: Ht 149.9 cm; Wt 63.2 kg
[2019-01-15] MEDS ORDERED: RT-ALBUTEROL/IPRATROPIUM 3 ML (DUONEB) VIAL INH ONE (12:45)
--- NOTE | 2019-01-15 12:53 | ED Dyspnea ---
General Stated Complaint: SOB Source of Information: Patient, EMS Exam Limitations: No Limitations History of Present Illness Date Seen by Provider: Jan 15, 2019 Time Seen by Provider: 12:40 Initial Comments The patient is a pleasant 83-year-old female who presents via EMS for evaluation of shortness of breath and productive cough. She is a history of COPD and had lung cancer in the past. He uses an oxygen concentrator at home and was saturating 86% on 3 L when EMS arrived. She has audible rhonchi and rales upon arrival. She denies chest pain, fevers or chills, abdominal or back pain, hemoptysis, palpitations, dizziness or syncope. She is alert and oriented, calm, and appears to be in no significant distress at this time. Timing/Duration: Other (4 days) Severity: Moderate Associated Symptoms: Cough Allergies and Home Medications Allergies Coded Allergies: cilostazol (Verified Allergy, Unknown, 05/28/17) Uncoded Allergies: TAPE (Allergy, Unknown, 05/28/17) Home Medications Budesonide/Formoterol Fumarate 10.2 Gm Hfa.aer.ad, 1 PUFF IH BID, (Reported) Hydrocodone Bit/Acetaminophen 1 Tab Tab, 1 TAB PO Q6H PRN Prescribed by: BOOKER AQUINO on 06/10/17 1022 Isosorbide Mononitrate 30 Mg Tab.er.24h, 30 MG PO DAILY, (Reported) Lisinopril 40 Mg Tablet, 40 MG PO DAILY, (Reported) Lovastatin 20 Mg Tablet, 20 MG PO DAILY, (Reported) Mv-Mn/FA/Coq10/Lycopene/Lutein 1 Each Tablet, 1 TAB PO DAILY, (Reported) Nicotine 1 Each Patch.dysq, 14 MG TD Q48H, (Reported) Ondansetron HCl 8 Mg Tablet, 8 MG PO Q8H PRN for NAUSEA/VOMITING-1ST LINE, (Reported) Timolol Maleate 5 Ml Drops, 1 DROP OU HS, (Reported) Patient Home Medication List Home Medication List Reviewed: Yes Review of Systems Review of Systems Constitutional: no symptoms reported EENTM: no symptoms reported Respiratory: cough, short of breath Cardiovascular: no symptoms reported Gastrointestinal: no symptoms reported Genitourinary: no symptoms reported Musculoskeletal: no symptoms reported Skin: no symptoms reported Psychiatric/Neurological: No Symptoms Reported Endocrine: No Symptoms Reported Hematologic/Lymphatic: No Symptoms Reported All Other Systems Reviewed Negative Unless Noted: Yes Past Ueokqwu-Fzsilt-Eypcxl Hx Past Med/Social Hx: Reviewed Nursing Past Med/Soc Hx Patient Social History Former Smoker, Quit: Apr 29, 2017 Recent Foreign Travel: Yes Recent Hopitalizations: No Immunizations Up To Date Date of Influenza Vaccine: Dec 07, 2016 Seasonal Allergies Seasonal Allergies: Yes Past Medical History Angioplasty, CABG, Hysterectomy COPD Hypertension Headaches /Migraines [employer] History: Hysterectomy Arthritis Glaucoma Lung What Type of Treatment Did You: Chemotherapy, Radiation Physical Exam Vital Signs Vital Signs - First Documented 01/15/19 12:35 Temp 36.9 Pulse 80 Resp 16 B/P (MAP) 153/88 (109) Pulse Ox 100 O2 Delivery Nasal Cannula O2 Flow Rate 3.00 Capillary Refill : Height, Weight, BMI Height: 4'10.00" Weight: 124lbs. 0.0oz. 56.509326ej; 25.9 BMI Method: General Appearance: No Apparent Distress, WD/WN HEENT: PERRL/EOMI, Pharynx Normal Respiratory: Chest Non Tender, No Accessory Muscle Use, Crackles, Rales, Wheezing Cardiovascular: Regular Rate, Rhythm, No JVD Gastrointestinal: Normal Bowel Sounds, Non Tender, Soft Extremity: Normal Capillary Refill Neurologic/Psychiatric: Alert, Oriented x3, No Motor/Sensory Deficits, Normal Mood/Affect Skin: Normal Color, Warm/Dry Focused Exam Lactate Level 01/15/19 13:18: Lactic Acid Level 0.63 Lactic Acid Level Laboratory Tests Test 01/15/19 13:18 Lactic Acid Level 0.63 MMOL/L (0.50-2.00) Progress/Results/Core Measures Results/Orders Lab Results Laboratory Tests Test 01/15/19 13:18 Range/Units White Blood Count 3.3 L 4.3-11.0 10^3/uL Red Blood Count 3.56 L 4.35-5.85 10^6/uL Hemoglobin 10.5 L 11.5-16.0 G/DL Hematocrit 35 35-52 % Mean Corpuscular Volume 99 80-99 FL Mean Corpuscular Hemoglobin 29 25-34 PG Mean Corpuscular Hemoglobin Concent 30 L 32-36 G/DL Red Cell Distribution Width 12.8 10.0-14.5 % Platelet Count 135 130-400 10^3/uL Mean Platelet Volume 10.7 H 7.4-10.4 FL Neutrophils (%) (Auto) 71 42-75 % Lymphocytes (%) (Auto) 16 12-44 % Monocytes (%) (Auto) 11 0-12 % Eosinophils (%) (Auto) 2 0-10 % Basophils (%) (Auto) 0 0-10 % Neutrophils # (Auto) 2.4 1.8-7.8 X 10^3 Lymphocytes # (Auto) 0.5 L 1.0-4.0 X 10^3 Monocytes # (Auto) 0.4 0.0-1.0 X 10^3 Eosinophils # (Auto) 0.1 0.0-0.3 10^3/uL Basophils # (Auto) 0.0 0.0-0.1 10^3/uL Sodium Level 140 135-145 MMOL/L Potassium Level 4.5 3.6-5.0 MMOL/L Chloride Level 96 L 98-107 MMOL/L Carbon Dioxide Level 33 H 21-32 MMOL/L Anion Gap 11 5-14 MMOL/L Blood Urea Nitrogen 15 7-18 MG/DL Creatinine 0.56 L 0.60-1.30 MG/DL Estimat Glomerular Filtration Rate > 60 BUN/Creatinine Ratio 27 Glucose Level 84 70-105 MG/DL Lactic Acid Level 0.63 0.50-2.00 MMOL/L Calcium Level 9.4 8.5-10.1 MG/DL Corrected Calcium 9.7 8.5-10.1 MG/DL Magnesium Level 1.6 1.6-2.4 MG/DL Total Bilirubin 0.3 0.1-1.0 MG/DL Aspartate Amino Transf (AST/SGOT) 24 5-34 U/L Alanine Aminotransferase (ALT/SGPT) 12 0-55 U/L Alkaline Phosphatase 55 40-136 U/L Pro-B-Type Natriuretic Peptide 1795.0 H <75.0 PG/ML Total Protein 6.6 6.4-8.2 GM/DL Albumin 3.6 3.2-4.5 GM/DL My Orders Orders - ROWENA AGUILERA DO Cbc With Automated Diff (01/15/19 12:44) Comprehensive Metabolic Panel (01/15/19 12:44) Blood Culture (01/15/19 12:44) Chest 1 View Ap/Pa Only (01/15/19 12:44) Albuterol/Ipra Inhalation Soln (Duoneb I (01/15/19 12:45) Magnesium (01/15/19 12:44) Ekg Tracing (01/15/19 12:44) O2 (01/15/19 12:44) Ed Iv/Invasive Line Start (01/15/19 12:44) Monitor-Rhythm Ecg Trace Only (01/15/19 12:44) Lactic Acid Analyzer (01/15/19 12:44) Svn Small Volume Nebulizer (01/15/19 12:44) Probnp Fs (01/15/19 12:44) Sputum Culture (01/15/19 14:07) Piperacillin/Tazobactam (Bulk) (Zosyn In (01/15/19 15:15) Ciprofloxacin Iv 400mg/200ml (Cipro Iv S (01/15/19 15:15) Piperacillin Sodium/Tazobactam (Zosyn Vi (01/15/19 15:30) Ns (Ivpb) (Sodium Chloride 0.9% Ivpb Bag (01/15/19 15:30) Troponin I Fs (01/15/19 15:41) Medications Given in ED Current Medications Medications Dose Ordered Sig/Kt Route Start Time Stop Time Status Last Admin Dose Admin Albuterol/ Ipratropium 3 ml ONCE ONCE INH 01/15/19 12:45 01/15/19 12:48 DC 01/15/19 13:08 3 ML Vital Signs/I&O 01/15/19 01/15/19 12:35 12:35 Temp 36.9 Pulse 80 Resp 16 B/P (MAP) 153/88 (109) Pulse Ox 100 O2 Delivery Nasal Cannula Nasal Cannula O2 Flow Rate 3.00 3.00 Progress Progress Note : Progress Note @1430 - patient and family updated on lab and imaging results. There is evidence of a pneumonia on the chest x-ray and the patient is agreeable to admission at [facility]. Diagnostic Imaging Comments [facility], [facility]. POS ORIENT, [place] POS NAME: DAVI MG [facility] REC#: [id number] PT STATUS: REG ER : 1935 PHYSICIAN: ROWENA AGUILERA DO ADMIT DATE: 01/15/19/ER FS Draft POSDate of Exam:01/15/19 CHEST 1 VIEW AP/PA ONLY EXAMINATION: Portable erect AP chest at 0108 hours. INDICATION: Shortness of breath. FINDINGS: The cardiomegaly and the sternotomy wires and surgical clips and the right-sided port-a-cath seen on the prior exam of 06/10/2017 are again visualized and no different. The previous study did note a right-sided pneumothorax following thoracentesis. On this exam there is no evidence for a pneumothorax. However there is a hhogc-rf-clepesvj amount of atelectasis/infiltrate and fluid involving the right lung base. The left lung is generally clear. The mediastinum is not widened. The osseous structures are intact. IMPRESSION: There is a pdzfe-vb-pgffcdnl amount of atelectasis/infiltrate and fluid involving the right lung base. There is no acute cardiopulmonary abnormality noted otherwise. Dictated on workstation # [id number] Dict: 01/15/19 1314 Trans: 01/15/19 1320 [facility] [id number] Interpreted by: ZAHEER GUTIÉRREZ MD Electronically signed by: Departure Communication (Admissions) Time/Spoke to Admitting Phy: 15:15 Dr. Gates accepts the tele admission Impression Primary Impression: Pneumonia Additional Impressions: Elevated brain natriuretic peptide (BNP) level Hypoxia Disposition: ADMITTED INPATIENT Condition: Stable Admissions Decision to Admit Reason: Admit from ER (General) Decision to Admit/Date: Jan 15, 2019 Time/Decision to Admit Time: 15:15 Departure-Patient Inst. Referrals: ODALYS TORRES MD (PCP/Family) Primary Care Physician ROWENA AGUILERA DO Jan 15, 2019 12:53 POS
--- NOTE | 2019-01-15 13:20 | Diagnostic Imaging Report ---
EXAMINATION: Portable erect AP chest at 0108 hours. INDICATION: Shortness of breath. FINDINGS: The cardiomegaly and the sternotomy wires and surgical clips and the right-sided port-a-cath seen on the prior exam of 06/10/2017 are again visualized and no different. The previous study did note a right-sided pneumothorax following thoracentesis. On this exam there is no evidence for a pneumothorax. However there is a quxqc-ld-ihfdymlg amount of atelectasis/infiltrate and fluid involving the right lung base. The left lung is generally clear. The mediastinum is not widened. The osseous structures are intact. IMPRESSION: There is a erzbg-ym-vbawbuxk amount of atelectasis/infiltrate and fluid involving the right lung base. There is no acute cardiopulmonary abnormality noted otherwise. Dictated by: Dictated on workstation # [id number]
[2019-01-15 13:50] LABS: BASOPHILS % (AUTO) 0 % (0-10); EOSINOPHILS # (AUTO) 0.1 10^3/uL (0.0-0.3); EOSINOPHILS % (AUTO) 2 % (0-10); HEMATOCRIT 35 % (35-52); HEMOGLOBIN 10.5 G/DL (11.5-16.0); LYMPHOCYTES # (AUTO) 0.5 X 10^3 (1.0-4.0); LYMPHOCYTES % (AUTO) 16 % (12-44); MEAN CORPUSCULAR HEMOGLOBIN 29 PG (25-34); MEAN CORPUSCULAR HGB CONC 30 G/DL (32-36); MEAN CORPUSCULAR VOLUME 99 FL (80-99); MEAN PLATELET VOLUME 10.7 FL (7.4-10.4); MONOCYTES # (AUTO) 0.4 X 10^3 (0.0-1.0); MONOCYTES % (AUTO) 11 % (0-12); NEUTROPHILS # (AUTO) 2.4 X 10^3 (1.8-7.8); NEUTROPHILS % (AUTO) 71 % (42-75); PLATELET COUNT 135 10^3/uL (130-400); RED CELL DISTRIBUTION WIDTH 12.8 % (10.0-14.5); WHITE BLOOD COUNT 3.3 10^3/uL (4.3-11.0)
[2019-01-15 14:25] LABS: BUN/CREATININE RATIO 27; CALCIUM 9.4 MG/DL (8.5-10.1); CARBON DIOXIDE 33 MMOL/L (21-32); CHLORIDE 96 MMOL/L (98-107); CREATININE SERUM 0.56 MG/DL (0.60-1.30); GFR ESTIMATED > 60; GLUCOSE 84 MG/DL (70-105); POTASSIUM 4.5 MMOL/L (3.6-5.0); SODIUM 140 MMOL/L (135-145)
[2019-01-15 14:26] LABS: ALANINE AMINOTRANSFERASE 12 U/L (0-55); ALBUMIN 3.6 GM/DL (3.2-4.5); ALKALINE PHOSPHATASE 55 U/L (40-136); BILIRUBIN,TOTAL 0.3 MG/DL (0.1-1.0); MAGNESIUM 1.6 MG/DL (1.6-2.4); TOTAL PROTEIN 6.6 GM/DL (6.4-8.2)
[2019-01-15] MEDS ORDERED: PIPERACILLIN/TAZOBACTAM (BULK) 4.5 GM in NS (IVPB) 100 ML IV ONE (15:15)
[2019-01-15] MEDS ORDERED: CIPROFLOXACIN IV 400MG/200ML 200 ML IV ONE (15:15)
[2019-01-15] MEDS ORDERED: PIPERACILLIN/TAZO 4.5 GM VIAL (ZOSYN) IV ONE (15:30)
[2019-01-15] MEDS ORDERED: NS (IVPB) 100 ML ONE (15:30)
[2019-01-15 17:35] VITALS: BP 133/76
[2019-01-15] MEDS ORDERED: MILK OF MAGNESIA 400 MG/5 ML 30 ML UDC PO PRN (18:00)
[2019-01-15] MEDS ORDERED: ONDANSETRON 4 MG/2 ML (SDV) Z0FRAN IV PRN (18:00)
[2019-01-15] MEDS ORDERED: POLYETHYLENE GLYCOL 17 GM (MIRALAX) PACK PO PRN (18:00)
[2019-01-15] MEDS ORDERED: ANTACID SUSP 30 ML UDC (MYLANTA) PO PRN (18:00)
[2019-01-15] MEDS ORDERED: MELATONIN 3 MG TABLET PO PRN (18:00)
[2019-01-15] MEDS ORDERED: CATHETER FLUSH 10 ML SYR IV PRN (18:00)
[2019-01-15] MEDS ORDERED: ACETAMINOPHEN 325 MG TABLET PO PRN (18:00)
[2019-01-15] MEDS ORDERED: ONDANSETRON 4 MG (ZOFRAN) ORAL DISSOLVE TAB PO PRN (18:00)
[2019-01-15] MEDS ORDERED: BISACODYL 10 MG SUPP (DULCOLAX) PR PRN (18:00)
[2019-01-15] MEDS ORDERED: AZITHROMYCIN 500 MG/NS 250 ML IVPB IV SCH ×2 (18:00)
[2019-01-15] MEDS: ENOXAPARIN 40 MG/0.4 ML (LOVENOX) SYR SC SCH (19:54)
[2019-01-15] MEDS: DOCUSATE SODIUM 100 MG (COLACE) CAP PO SCH (19:54)
[2019-01-15 20:00] VITALS: BP 106/67
[2019-01-15 21:12] VITALS: BP 106/67
[2019-01-15] MEDS ORDERED: RT-ALBUTEROL/IPRATROPIUM 3 ML (DUONEB) VIAL INH PRN (21:15)
[2019-01-15] MEDS: RT-ALBUTEROL/IPRATROPIUM 3 ML (DUONEB) VIAL INH SCH (21:42)
[2019-01-15] MEDS: PIPERACILLIN/TAZO 4.5 GM/NS 100 ML IV SCH ×2 (21:44)
[2019-01-15] MEDS: CATHETER FLUSH 10 ML SYR IV SCH (21:44)
[2019-01-15] MEDS: NYSTATIN ORAL SUSP 5 ML UDC PO SCH (22:46)
[2019-01-16] VITALS (7 sets, daily range): BP systolic 125–181; BP diastolic 63–84
[2019-01-16] MEDS: RT-ALBUTEROL/IPRATROPIUM 3 ML (DUONEB) VIAL INH SCH ×6 (02:13→22:45)
[2019-01-16 04:42] LABS: BASOPHILS % (AUTO) 0 % (0-10); EOSINOPHILS % (AUTO) 0 % (0-10); HEMATOCRIT 34 % (35-52); HEMOGLOBIN 9.9 G/DL (11.5-16.0); LYMPHOCYTES # (AUTO) 0.2 X 10^3 (1.0-4.0); LYMPHOCYTES % (AUTO) 8 % (12-44); MEAN CORPUSCULAR HEMOGLOBIN 29 PG (25-34); MEAN CORPUSCULAR HGB CONC 29 G/DL (32-36); MEAN CORPUSCULAR VOLUME 99 FL (80-99); MEAN PLATELET VOLUME 10.4 FL (7.4-10.4); MONOCYTES # (AUTO) 0.1 X 10^3 (0.0-1.0); MONOCYTES % (AUTO) 5 % (0-12); NEUTROPHILS # (AUTO) 2.3 X 10^3 (1.8-7.8); NEUTROPHILS % (AUTO) 86 % (42-75); PLATELET COUNT 124 10^3/uL (130-400); RED CELL DISTRIBUTION WIDTH 12.9 % (10.0-14.5); WHITE BLOOD COUNT 2.7 10^3/uL (4.3-11.0)
[2019-01-16 05:17] LABS: BUN/CREATININE RATIO 22; CALCIUM 9.5 MG/DL (8.5-10.1); CARBON DIOXIDE 32 MMOL/L (21-32); CHLORIDE 100 MMOL/L (98-107); CREATININE SERUM 0.73 MG/DL (0.60-1.30); GFR ESTIMATED > 60; GLUCOSE 172 MG/DL (70-105); POTASSIUM 4.2 MMOL/L (3.6-5.0); SODIUM 142 MMOL/L (135-145)
[2019-01-16] MEDS: PIPERACILLIN/TAZO 4.5 GM/NS 100 ML IV SCH ×2 (06:09)
[2019-01-16] MEDS: CATHETER FLUSH 10 ML SYR IV SCH ×3 (06:09→20:29)
--- NOTE | 2019-01-16 07:35 | Diagnostic Imaging Report ---
INDICATION: Pneumonia. Comparison made with prior examination 01/15/2019. FINDINGS: There is cardiomegaly. There is venous congestion. There are bibasilar infiltrates. There is right pleural effusion. There is no pneumothorax. Mediastinum is unremarkable. There has been previous median sternotomy. Arzwza-r-Zztp catheter overlies right hemithorax and its tip in superior vena cava. IMPRESSION: Cardiomegaly and mild venous congestion. Patchy bibasilar infiltrates and small right pleural effusion. Dictated by: Dictated on workstation # [id number]
[2019-01-16] MEDS ORDERED: MONT10TA24 PO (08:51)
[2019-01-16] MEDS ORDERED: GABA-488 PO (08:51)
[2019-01-16] MEDS ORDERED: FEXO-46 PO (08:51)
[2019-01-16] MEDS ORDERED: ASPI-983 PO (08:52)
[2019-01-16] MEDS ORDERED: MAGN400T6 PO (08:52)
[2019-01-16] MEDS ORDERED: AZITHROMYCIN 250 MG TAB (ZITHROMAX) PO SCH (09:00)
[2019-01-16] MEDS: NYSTATIN ORAL SUSP 5 ML UDC PO SCH ×2 (09:53→20:28)
[2019-01-16] MEDS: DOCUSATE SODIUM 100 MG (COLACE) CAP PO SCH ×2 (09:53→20:28)
[2019-01-16] MEDS ORDERED: IPRA3AMP31 NEB (10:19)
--- NOTE | 2019-01-16 11:19 | Physical Therapy Evaluation ---
PT Evaluation-General Medical Diagnosis Admission Date Jan 15, 2019 at 16:00 Medical Diagnosis: pneumonia/hypoxia Onset Date: Jan 15, 2019 Therapy Diagnosis Therapy Diagnosis: debility Height/Weight Height (Feet): 4 Height (Inches): 10.00 Weight (Pounds): 124 Weight (Ounces): 0.0 Precautions Precautions/Isolations: Standard Precautions Weight Bear Status Right Lower Extremity: Right Weight Bearing/Tolerated Left Lower Extremity: Left Weight Bearing/Tolerated Referral Physician: Yajaira Reason for Referral: Evaluation/Treatment Medical History Pertinent Medical History: CABG, COPD Additional Medical History lung cancer Current History EMS secondary to SOB Reviewed History: Yes Social History Home: Single Level Current Living Status: Alone Prior Prior Level of Function SCALE: Activities may be completed with or without assistive devices. 6-Nmearslfnq-pyriupq completes the activity by him/herself with no assistance from a helper. 5-Set-up or Clean-up Assistance-helper sets up or cleans up; patient completes activity. [place] assists only prior to or following the activity. 4-Supervision or Touching Assistance-helper provides verbal cues and/or touching/steadying and/or contact guard assistance as patient completes activity. Assistance may be provided throughout the activity or intermittently. 3-Partial/Moderate Assistance-helper does LESS THAN HALF the effort. Ellsworth lifts, holds or supports trunk or limbs, but provides less than half the effort. 2-Substantial/Maximal Assistance-helper does MORE THAN HALF the effort. [place] lifts or holds trunk or limbs and provides more than half the effort. 6-Dehdpezoa-oxichy does ALL the effort. Patient does none of the effort to complete the activity. Or, the assistance of 2 or more helpers is required for the patient to complete the activity. If activity was not attempted, code reason: 7-Patient Refused. 9-Not Applicable-not attempted and the patient did not perform the activity before the current illness, exacerbation or injury. 10-Not Attempted due to Environmental Limitations-(lack of equipment, weather restraints, etc.). 88-Not Attempted due to Medical Conditions or Safety Concerns. Bed Mobility: 6 Transfers (B,C,W/C): 6 Gait: 6 Stairs: 6 Indoor Mobility (Ambulation): Independent Stairs: Independent Prior Devices Use: None PT Evaluation-Current Subjective Patient reports she is continuing to have difficulty breathing, however, agrees to PT. Pain Numeric Pain Scale: 0-No Pain Location: No Pain Reported Objective Patient Orientation: Normal For Age Problem Solving: Fair Attachments: Oxygen (3L O2 NC), IV ROM/Strength ROM Lower Extremities bilateral LE WFL Strength Lower Extremities 4/5 grossly bilateral LE Integumentary/Posture Integumentary refer to nursing notes Bowel Incontinence: No Bladder Incontinence: No Posture WFL Neuromuscular (Tone, Coordination, Reflexes) grossly intact Sensory Vision: Functional Hearing: Impaired Sensation Right Lower Extremit: Intact Sensation Left Lower Extremity: Intact Transfers Roll Left to Right (QC): 6 Sit to Lying (QC): 6 Lying to Sitting/Side of Bed(Q: 6 Sit to Stand (QC): 6 Gait Does the Patient Walk?: Yes Mode of Locomotion: Walk Anticipated Mode of Locomotion: Walk Distance: 3=150 ft Walk 10 feet (QC): 6 Walk 50 ft with 2 Turns(QC): 6 Walk 150 ft (QC): 6 Distance: 275' Gait Assistive Device: FWW Comments/Gait Description FWW for energy conservation Balance Sitting Static: Normal Sitting Dynamic: Normal Standing Static: Normal Standing Dynamic: Normal Assessment/Needs 83 y.o. female, will benefit from short term skilled PT to address pulmonary function with functional mobility to ensure safe return to home at maximum LOF. 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 [employer] Processor Goals Correction Goals PT Correction Goals Time Frame: Jan 21, 2019 Sit to Lying (QC): 6 Lying-Sitting on Side/Bed(QC): 6 Sit to Stand (QC): 6 Roll Left to Right (QC): 6 Chair/Eog-dp-Ygxgx Xfer(QC): 6 Car Transfer (QC): 6 Does the Patient Walk: Yes Distance: 300' Walk 10 feet (QC): 6 Walk 10ft-Uneven Surface(QC): 6 Walk 50ft with 2 Turns (QC): 6 Walk 150 ft (QC): 6 Gait Assistive Device: FWW PT Plan Problem List Problem List: Activity Tolerance Treatment/Plan Treatment Plan: Continue Plan of Care Treatment Plan: Education, Functional Activity Michael, Functional Strength, Gait , Safety, Therapeutic Exercise, Transfers, Other Treatment Duration: Jan 21, 2019 Frequency: 6 times per week Estimated Hrs Per Day: .25 hour per day Patient and/or Family Agrees t: Yes Discharge Recommendations Equpiment Recommendations-D/C: Front Wheeled Walker Time/GCodes Time In: 1010 Time Out: 1024 Total Billed Treatment Time: 14 Total Billed Treatment 1 visit EVMod 14 min YOU GRIGSBY PT Jan 16, 2019 11:19 POS
[2019-01-16] MEDS ORDERED: methylPREDNISolone 125 MG (Solu-MEDROL) VIAL IVP NR (11:45)
--- NOTE | 2019-01-16 11:55 | History & Physical-Hospitalist ---
History of Present Illness HPI/Chief Complaint Anne Du is an 83yoF with PMH COPD, CAD, HLD, NSCLC, chronic hypoxemic respiratory failure, who presented with shortness of breath. She reports that she had recently been feeling more short of breath. She had been coughing as well. She denies fevers and chills. She denies leg swelling. She had not increased her oxygen use. She denies chest pain. She denies palpitations. She has completed her treatment for her cancer and she is currently off chemotherapy. Source: patient Exam Limitations: no limitations Date Seen 01/16/19 Time Seen by a Provider: 10:00 Attending Physician Myrna Harrell MD PCP Jonah Santillan MD Referring Physician Date of Admission Jan 15, 2019 at 16:00 Home Medications & Allergies Home Medications Reviewed patient Home Medication Reconciliation performed by pharmacy medication reconciliations security systems technician and/or nursing. Patients Allergies have been reviewed. Allergies Allergies Coded Allergies cilostazol (Verified Allergy, Unknown, 05/28/17) Uncoded Allergies TAPE ( Allergy, Unknown, 05/28/17) Past Ndmswoh-Nhdgyx-Yoocbq Hx Past Med/Social Hx: Reviewed Nursing Past Med/Soc Hx Patient Social History Alcohol Use: Denies Use Recreational Drug Use: No Former Smoker, Quit: Apr 29, 2017 2nd Hand Smoke Exposure: No Recent Foreign Travel: No Contact w/other who traveled: No Recent Hopitalizations: Yes (apr 2017 cancer) Recent Infectious Disease Expo: No Immunizations Up To Date Pediatric: No Date of Pneumonia Vaccine: Jan 15, 2015 Date of Influenza Vaccine: Dec 07, 2016 Seasonal Allergies Seasonal Allergies: Yes Past Medical History Surgeries: Angioplasty, CABG, Hysterectomy Currently Using CPAP: No Currently Using BIPAP: No Cardiac: Hypertension Neurological: Headaches /Migraines Hysterectomy Gastrointestinal: Irritable Bowel Musculoskeletal: Arthritis HEENT: Glaucoma Hearing Impairment: Hard of Hearing Cancer: Lung Did You Recieve Any Treatments: Yes What Type of Treatment Did You: Chemotherapy, Radiation Cancer: imuno therapy History of Blood Disorders: No Adverse Reaction to Blood Obrien: No Family History Cardiovascular disease 19 MOTHER G8 BROTHER G8 BROTHER G8 SISTER Diabetes mellitus G8 BROTHER Glaucoma 19 MOTHER Myocardial infarction G8 BROTHER Review of Systems Constitutional: no symptoms reported EENTM: no symptoms reported Respiratory: cough, short of breath Cardiovascular: no symptoms reported Gastrointestinal: no symptoms reported Genitourinary: no symptoms reported Musculoskeletal: no symptoms reported Skin: no symptoms reported Psychiatric/Neurological: No Symptoms Reported Physical Exam Physical Exam Vital Signs Vital Signs - First Documented 01/15/19 12:35 Temp 36.9 Pulse 80 Resp 16 B/P (MAP) 153/88 (109) Pulse Ox 100 O2 Delivery Nasal Cannula O2 Flow Rate 3.00 Capillary Refill : Less Than 3 SecondsLess Than 3 Seconds Height, Weight, BMI Height: 4'10.00" Weight: 124lbs. 0.0oz. [id number]; 28.48 BMI Method: General Appearance: No Apparent Distress, WD/WN, Chronically ill HEENT: PERRL/EOMI, Pharynx Normal Neck: Normal Inspection, Supple Respiratory: No Accessory Muscle Use, No Respiratory Distress, Crackles (bibasilar), Wheezing (diffuse inspiratory and expiratory) Cardiovascular: Regular Rate, Rhythm, No Edema, No Murmur Gastrointestinal: Normal Bowel Sounds, Non Tender, Soft Extremity: Normal Inspection, Non Tender, No Pedal Edema Neurologic/Psychiatric: Alert, Oriented x3, No Motor/Sensory Deficits, Normal Mood/Affect Skin: Normal Color, Warm/Dry Lymphatic: No Adenopathy Results Results/Procedures Labs Laboratory Tests 01/15/19 13:18 01/16/19 04:12 Patient resulted labs reviewed. Imaging: Reviewed Imaging Report Assessment/Plan Admission Diagnosis Acute exacerbation of COPD Admission Status: Inpatient Order (span 2 midnights) Reason for Inpatient Admission: COPD exacerbation requiring steroids and new onset atrial fibrillation needing cardiology evaluation Assessment and Plan Acute exacerbation of COPD Chronic hypoxemic respiratory failure Elevated BNP, possible congestive heart failure Irregular heart rhythm, possible new onset paroxysmal atrial fibrillation Elevated troponin -Afebrile, no elevation of WBC -CXR with possible bibasilar infiltrate, cardiomegaly and venous congestion -Procalcitonin normal, antibiotics discouraged -Stop Zosyn and Azithromycin -Solumedrol 62.5 mg once, then Prednisone 40 mg daily -MAT protocol ordered -Requiring baseline 3 L oxygen -BNP elevated 1700 -Obtain echo -Troponins mildly elevated ~0.04 -New onset atrial fibrillation reported on telemetry -Consult cardiology NSCLC -Clinically significant, no acute management needs -Not currently on chemotherapy -Follows with Dr. Patricia DVT Prophylaxis: Lovenox Diagnosis/Problems Diagnosis/Problems (1) COPD with acute exacerbation Status: Acute (2) Chronic hypoxemic respiratory failure Status: Chronic (3) Elevated troponin Status: Acute (4) Irregular heart rhythm Status: Acute (5) Elevated brain natriuretic peptide (BNP) level Status: Acute (6) Non-small cell lung cancer Status: Chronic Qualifiers: Laterality: unspecified laterality Qualified Codes: C34.90 - Malignant neoplasm of unspecified part of unspecified bronchus or lung Clinical Quality Measures DVT/VTE Risk/Contraindication: Risk Factor Score Per Nursin RFS Level Per Nursing on Admit: 4+=Very High MYRNA HARRELL MD Jan 16, 2019 11:55 POS
--- NOTE | 2019-01-16 13:19 | Consultation-Cardiology ---
HPI-Cardiology Cardiology Consultation Date of Consultation 01/16/19 Date of Admission Time Seen by Provider: 13:15 Indication: Shortness of breath HPI 83-year-old lady with history of coronary artery disease, CABG done in 1986, hypertension hyperlipidemia and COPD. Admitted with increasing shortness of breath and exacerbation of COPD. Denied any chest pain. Has dyspnea which has been worsening. No palpitation. No syncope or near syncopal episodes. She was noted to have irregular heartbeat and I was consulted for evaluation. Home Medications & Allergies Allergies: Coded Allergies: cilostazol (Verified Allergy, Unknown, 05/28/17) Uncoded Allergies: TAPE (Allergy, Unknown, 05/28/17) Home Medication List Reviewed: Yes RJV-Awpirh-Ulhszr Hx Patient Social History Marital Status: Alcohol Use: Denies Use Recreational Drug Use: No 2nd Hand Smoke Exposure: No Recent Foreign Travel: No Recent Infectious Disease Expo: No Recent Hopitalizations: Yes (apr 2017 cancer) Immunizations Up To Date Date of Pneumonia Vaccine: Jan 15, 2015 Date of Influenza Vaccine: Dec 07, 2016 Past Medical History Discussed below Family Medical History Family History: Cardiovascular disease 19 MOTHER G8 BROTHER G8 BROTHER G8 SISTER Diabetes mellitus G8 BROTHER Glaucoma 19 MOTHER Myocardial infarction G8 BROTHER Review of Systems-General Review of Systems Constitutional: no symptoms reported, see HPI, malaise, weakness EENTM: see HPI, no symptoms reported Respiratory: see HPI, cough, dyspnea on exertion, short of breath, wheezing Cardiovascular: see HPI; No chest pain; edema; No Hx of Intervention; palpitations; No syncope, No vascular heart diseas, No other Gastrointestinal: no symptoms reported, see HPI Genitourinary: no symptoms reported, see HPI Musculoskeletal: see HPI, joint pain, muscle weakness Skin: no symptoms reported Psychiatric/Neurological: No Symptoms Reported All Other Systems Reviewed Negative Unless Noted: Yes Reviewed Test Results Reviewed Test Results Lab Laboratory Tests Test 01/15/19 13:18 01/15/19 15:18 01/15/19 18:50 01/15/19 23:43 Range/Units White Blood Count 3.3 L 4.3-11.0 10^3/uL Red Blood Count 3.56 L 4.35-5.85 10^6/uL Hemoglobin 10.5 L 11.5-16.0 G/DL Hematocrit 35 35-52 % Mean Corpuscular Volume 99 80-99 FL Mean Corpuscular Hemoglobin 29 25-34 PG Mean Corpuscular Hemoglobin Concent 30 L 32-36 G/DL Red Cell Distribution Width 12.8 10.0-14.5 % Platelet Count 135 130-400 10^3/uL Mean Platelet Volume 10.7 H 7.4-10.4 FL Neutrophils (%) (Auto) 71 42-75 % Lymphocytes (%) (Auto) 16 12-44 % Monocytes (%) (Auto) 11 0-12 % Eosinophils (%) (Auto) 2 0-10 % Basophils (%) (Auto) 0 0-10 % Neutrophils # (Auto) 2.4 1.8-7.8 X 10^3 Lymphocytes # (Auto) 0.5 L 1.0-4.0 X 10^3 Monocytes # (Auto) 0.4 0.0-1.0 X 10^3 Eosinophils # (Auto) 0.1 0.0-0.3 10^3/uL Basophils # (Auto) 0.0 0.0-0.1 10^3/uL Sodium Level 140 135-145 MMOL/L Potassium Level 4.5 3.6-5.0 MMOL/L Chloride Level 96 L 98-107 MMOL/L Carbon Dioxide Level 33 H 21-32 MMOL/L Anion Gap 11 5-14 MMOL/L Blood Urea Nitrogen 15 7-18 MG/DL Creatinine 0.56 L 0.60-1.30 MG/DL Estimat Glomerular Filtration Rate > 60 BUN/Creatinine Ratio 27 Glucose Level 84 70-105 MG/DL Lactic Acid Level 0.63 0.50-2.00 MMOL/L Calcium Level 9.4 8.5-10.1 MG/DL Corrected Calcium 9.7 8.5-10.1 MG/DL Magnesium Level 1.6 1.6-2.4 MG/DL Total Bilirubin 0.3 0.1-1.0 MG/DL Aspartate Amino Transf (AST/SGOT) 24 5-34 U/L Alanine Aminotransferase (ALT/SGPT) 12 0-55 U/L Alkaline Phosphatase 55 40-136 U/L Pro-B-Type Natriuretic Peptide 1795.0 H <75.0 PG/ML Total Protein 6.6 6.4-8.2 GM/DL Albumin 3.6 3.2-4.5 GM/DL Troponin I < 0.30 0.041 H < 0.028 <0.028 NG/ML Procalcitonin 0.06 <0.10 NG/ML Test 01/16/19 04:12 01/16/19 08:30 Range/Units White Blood Count 2.7 L 4.3-11.0 10^3/uL Red Blood Count 3.44 L 4.35-5.85 10^6/uL Hemoglobin 9.9 L 11.5-16.0 G/DL Hematocrit 34 L 35-52 % Mean Corpuscular Volume 99 80-99 FL Mean Corpuscular Hemoglobin 29 25-34 PG Mean Corpuscular Hemoglobin Concent 29 L 32-36 G/DL Red Cell Distribution Width 12.9 10.0-14.5 % Platelet Count 124 L 130-400 10^3/uL Mean Platelet Volume 10.4 7.4-10.4 FL Neutrophils (%) (Auto) 86 H 42-75 % Lymphocytes (%) (Auto) 8 L 12-44 % Monocytes (%) (Auto) 5 0-12 % Eosinophils (%) (Auto) 0 0-10 % Basophils (%) (Auto) 0 0-10 % Neutrophils # (Auto) 2.3 1.8-7.8 X 10^3 Lymphocytes # (Auto) 0.2 L 1.0-4.0 X 10^3 Monocytes # (Auto) 0.1 0.0-1.0 X 10^3 Eosinophils # (Auto) 0.0 0.0-0.3 10^3/uL Basophils # (Auto) 0.0 0.0-0.1 10^3/uL Sodium Level 142 135-145 MMOL/L Potassium Level 4.2 3.6-5.0 MMOL/L Chloride Level 100 98-107 MMOL/L Carbon Dioxide Level 32 21-32 MMOL/L Anion Gap 10 5-14 MMOL/L Blood Urea Nitrogen 16 7-18 MG/DL Creatinine 0.73 0.60-1.30 MG/DL Estimat Glomerular Filtration Rate > 60 BUN/Creatinine Ratio 22 Glucose Level 172 H 70-105 MG/DL Calcium Level 9.5 8.5-10.1 MG/DL Troponin I 0.029 H <0.028 NG/ML Procalcitonin 0.05 <0.10 NG/ML Physical Exam Physical Exam Vital Signs Vital Signs - First Documented 01/15/19 12:35 Temp 36.9 Pulse 80 Resp 16 B/P (MAP) 153/88 (109) Pulse Ox 100 O2 Delivery Nasal Cannula O2 Flow Rate 3.00 Capillary Refill : Less Than 3 SecondsLess Than 3 Seconds Height, Weight, BMI Height: 4'10.00" Weight: 124lbs. 0.0oz. [id number]; 28.48 BMI Method: General Appearance: No Apparent Distress, WD/WN, Chronically ill HEENT: PERRL/EOMI, Pharynx Normal Neck: Normal Inspection, Supple Respiratory: No Accessory Muscle Use, No Respiratory Distress, Crackles (bibasilar), Wheezing (diffuse inspiratory and expiratory) Cardiovascular: Regular Rate, Rhythm, No Edema, Systolic Murmur Gastrointestinal: Normal Bowel Sounds, Non Tender, Soft Extremity: Normal Inspection, Non Tender, No Pedal Edema Neurologic/Psychiatric: Alert, Oriented x3, No Motor/Sensory Deficits, Normal Mood/Affect Skin: Normal Color, Warm/Dry Lymphatic: No Adenopathy A/P-Cardiology Admission Diagnosis Shortness of breath Type II myocardial infarction Severe mitral regurgitation Coronary artery disease Assessment/Plan Shortness of breath, acute exacerbation of COPD, managed by primary care team and improving slowly Irregular heart beat, currently in sinus rhythm with frequent atrial premature contractions, no atrial fibrillation was noted. Severe mitral regurgitation noted on 2-D Echo with dilated left atrium, will consider BARBIE once clinically more stable Type II myocardial infarction, slight elevation in troponin level probably due to respiratory failure and coronary artery disease. Coronary artery disease, history of CABG 3 done in 1986, clinically stable. No recent workup, did not follow-up with a insurance adviser. Continue to monitor Hypertension, monitor blood pressure Questionable hyperlipidemia, monitor lipids. Clinical Quality Measures DVT/VTE Risk/Contraindication: Risk Factor Score Per Nursin RFS Level Per Nursing on Admit: 4+=Very High MILLY SEE MD Jan 16, 2019 13:18 POS
--- NOTE | 2019-01-16 13:25 | Occupational Therapy Eval ---
OT Evaluation-General/PLF Medical Diagnosis Admission Date Jan 15, 2019 at 16:00 Medical Diagnosis: pneumonia/hypoxia Onset Date: Jan 15, 2019 Therapy Diagnosis Therapy Diagnosis: Decreased ADL activity Height/Weight Height (Feet): 4 Height (Inches): 10.00 Weight (Pounds): 124 Weight (Ounces): 0.0 Precautions Precautions/Isolations: Standard Precautions Safety Interventions: None Weight Bear Status Weight Bearing Restriction: Weight Bearing/Tolerated Referral Physician: Yajaira Referral Reason: Activity Tolerance, Self Care, Evaluation/Treatment, Strengthening/ROM Medical History Pertinent Medical History: CABG, COPD Additional Medical History COPD, lung Ca with radiation and chemo therapies, CABG, angioplasty, HTN, head aches/ migraines, arthritis, glaucoma Current History SOB, cough, pneumonia, COPD Reviewed History: Yes Social History Home: Single Level Current Living Status: Alone Entry Into Home: Stairs With Railing Steps Into Home: 2 Pt has daughter/ son close by and nephew a block from home. Pt wears [employer] [place] 24/ ADL-Prior Level of Function SCALE: Activities may be completed with or without assistive devices. 8-Bslujingyv-ffbsibh completes the activity by him/herself with no assistance from a helper. 5-Set-up or Clean-up Assistance-helper sets up or cleans up; patient completes activity. [place] assists only prior to or following the activity. 4-Supervision or Touching Assistance-helper provides verbal cues and/or touching/steadying and/or contact guard assistance as patient completes activity. Assistance may be provided throughout the activity or intermittently. 3-Partial/Moderate Assistance-helper does LESS THAN HALF the effort. [place] lifts, holds or supports trunk or limbs, but provides less than half the effort. 2-Substantial/Maximal Assistance-helper does MORE THAN HALF the effort. [place] lifts or holds trunk or limbs and provides more than half the effort. 7-Aeecpcbjy-pvevro does ALL the effort. Patient does none of the effort to complete the activity. Or, the assistance of 2 or more helpers is required for the patient to complete the activity. If activity was not attempted, code reason: 7-Patient Refused. 9-Not Applicable-not attempted and the patient did not perform the activity before the current illness, exacerbation or injury. 10-Not Attempted due to Environmental Limitations-(lack of equipment, weather restraints, etc.). 88-Not Attempted due to Medical Conditions or Safety Concerns. Self Care: Independent Functional Cognition: Independent DME/Equipment: Bath Chair, Grab Bars, Tub/Shower DME/Equipment Comments Pt was IND with ADL tasks with quad cane/ FWW. Pt required min A with IADLs- grocery shopping and community mobility Occupation: retired Drive Self: No OT Current Status Subjective Pt seen in recliner chair, family members present. Pt states no pain, agreeable to OT evaluation. Mental Status/Objective Patient Orientation: Person, Place, Situation, Normal For Age Attachments: Oxygen (Pt has 02 concentrator at home (3L)) Current Glasses/Contacts: Yes Hearing Aids: No Dentures/Partials: Yes Hand Dominance: Right Upper Extremity ROM WFL BUE Upper Extremity Coordination WFL BUE Upper Extremity Sensation WFL BUE Upper Extremity Strength 4-/5 bilaterally ADL-Treatment Eating (QC): 6 On/Off Footwear (QC): 6 Other Treatments Pt completes ADLs in chair, pt hard of hearing, required increased volume to R ear. Pt's family present through session, intermittently provide additional history. Pt states she does not receive assist at home, just for grocery shopping and community management. Pt did not require AE for dressing tasks prior, able to reach foot and kick shoe off/ place back on. Pt states she has been SOB and somewhat fatigued. Pt and family educated on acute OT role and to work toward decreased SOB and increased endurance during functional tasks. Pt left with dual rate dealer in room, family present, all needs met, call light in reach. Education OT Patient Education: Correct positioning, Modified ADL techniques, Purpose of tx/functional activities, Safety issues Teaching Recipient: Patient, Family Teaching Methods: Demonstration, Discussion Response to Teaching: Verbalize Understanding, Return Demonstration OT Short Term Goals Short Term Goals Upper Body Dressing(FIM): 5 Lower Body Dressing(FIM): 5 1=Demonstrate adherence to instructed precautions during ADL tasks. 2=Patient will verbalize/demonstrate understanding of assistive devices/modifications for ADL. 3=Patient will improve strength/tolerance for activity to enable patient to perform ADL's. OT Intermediate Goals Intermediate Goals Time Frame: Jan 23, 2019 Eating (QC): 6 Oral Hygiene (QC): 6 Shower/Bathe Self (QC): 6 Upper Body Dressing (QC): 6 Lower Body Dressing (QC): 6 On/Off Footwear (QC): 6 Toileting Hygiene (QC): 6 Toilet/Commode Transfer (QC): 6 Additional Goals: 1-Demonstrate ADL Tasks, 2-Verbalize Understanding, 3-Imp roveStrength/Michael 1=Demonstrate adherence to instructed precautions during ADL tasks. 2=Patient will verbalize/demonstrate understanding of assistive devices/modifications for ADL. 3=Patient will improve strength/tolerance for activity to enable patient to perform ADL's. OT Education/Plan Problem List/Assessment Assessment: Decreased Activ Tolerance, Decreased UE Strength, Impaired I ADL's, Impaired Self-Care Skills Discharge Recommendations Plan/Recommendations: Continue POC Equpiment Recommendations-D/C: None Patient/Family Goals Go home with increased endurance/ safety Treatment Plan/Plan of Care Treatment,Training & Education: Yes Patient would benefit from OT for education, treatment and training to promote independence in ADL's, mobility, safety and/or upper extremity function for ADL's. Plan of Care: ADL Retraining, Functional Mobility, UE Funct Exercise/Act Treatment Duration: Jan 23, 2019 Frequency: 5 times per week Estimated Hrs Per Day: .25 hour per day Agreement: Yes Rehab Potential: Fair Time/GCodes Start Time: 12:44 Stop Time: 12:58 Total Time Billed (hr/min): 14 Billed Treatment Time HAILEY Perry (14) CON PEGUERO OTR Jan 16, 2019 13:25 POS
[2019-01-16] MEDS: ENOXAPARIN 40 MG/0.4 ML (LOVENOX) SYR SC SCH (18:24)
[2019-01-16] MEDS: RT-ADVAIR HFA 115/21 MCG PER PUFF IH SCH (19:35)
[2019-01-16] MEDS: SIMvastatin 10 MG (ZOCOR) TAB PO SCH (20:28)
[2019-01-16] MEDS: MONTELUKAST 10 MG (SINGULAIR) TAB PO SCH (20:28)
[2019-01-16] MEDS: TIMOLOL MALEATE 0.5% 5 ML (TIMOPTIC) BTL OU SCH (20:28)
[2019-01-16] MEDS: GABAPENTIN 300 MG (NEURONTIN) CAP PO SCH (20:28)
[2019-01-16] MEDS ORDERED: NON-FORMULARY MEDICATION 1 EA EA (Lovastatin 20 MG) PO SCH (21:00)
[2019-01-16] MEDS ORDERED: NON-FORMULARY MEDICATION 1 EA EA (Budesonide/Formoterol Fumarate (Symbicort 160-4.5 Mcg In IH SCH (21:00)
[2019-01-17] MEDS: RT-ALBUTEROL/IPRATROPIUM 3 ML (DUONEB) VIAL INH SCH ×6 (03:13→21:33)
[2019-01-17 04:14] VITALS: BP 162/83
[2019-01-17] MEDS: CATHETER FLUSH 10 ML SYR IV SCH ×3 (04:44→20:17)
[2019-01-17 04:57] LABS: BASOPHILS % (AUTO) 0 % (0-10); EOSINOPHILS % (AUTO) 0 % (0-10); HEMATOCRIT 39 % (35-52); HEMOGLOBIN 11.3 G/DL (11.5-16.0); LYMPHOCYTES # (AUTO) 0.6 X 10^3 (1.0-4.0); LYMPHOCYTES % (AUTO) 8 % (12-44); MEAN CORPUSCULAR HEMOGLOBIN 29 PG (25-34); MEAN CORPUSCULAR HGB CONC 29 G/DL (32-36); MEAN CORPUSCULAR VOLUME 99 FL (80-99); MEAN PLATELET VOLUME 10.2 FL (7.4-10.4); MONOCYTES # (AUTO) 0.8 X 10^3 (0.0-1.0); MONOCYTES % (AUTO) 10 % (0-12); NEUTROPHILS # (AUTO) 6.4 X 10^3 (1.8-7.8); NEUTROPHILS % (AUTO) 82 % (42-75); PLATELET COUNT 171 10^3/uL (130-400); RED CELL DISTRIBUTION WIDTH 13.3 % (10.0-14.5); WHITE BLOOD COUNT 7.9 10^3/uL (4.3-11.0)
[2019-01-17 05:23] LABS: BUN/CREATININE RATIO 25; CALCIUM 10.1 MG/DL (8.5-10.1); CARBON DIOXIDE 33 MMOL/L (21-32); CHLORIDE 100 MMOL/L (98-107); CREATININE SERUM 0.77 MG/DL (0.60-1.30); GFR ESTIMATED > 60; GLUCOSE 160 MG/DL (70-105); POTASSIUM 5.5 MMOL/L (3.6-5.0); SODIUM 142 MMOL/L (135-145)
--- NOTE | 2019-01-17 05:41 | Cardiology Progress Note ---
Subjective Date Seen by Provider: Jan 17, 2019 Time Seen by Provider: 05:39 Subjective/Events-last exam Patient is complaining of increasing dyspnea, wheezing, no chest pain Review of Systems General: No Chills, No Night Sweats; Fatigue; No Malaise, No Appetite, No Other HEENT: No Head Aches, No Visual Changes, No Eye Pain, No Ear Pain, No Dysphasia, No Sinus Congestion, No Post Nasal Drip, No Sore Throat, No Other Pulmonary: Dyspnea; No Cough, No Pleuritic Chest Pain, No Other Cardiovascular: No: Chest Pain, Palpitations, Orthopnea, Paroxysmal Noc. Dyspnea, Edema, Lt Headedness, Other Focused Exam Lactate Level 01/15/19 13:18: Lactic Acid Level 0.63 Objective-Cardiology Exam Last Set of Vital Signs Vital Signs 01/17/19 04:14 Temp 36.8 Pulse 65 Resp 18 B/P (MAP) 162/83 (109) Pulse Ox 100 O2 Delivery Nasal Cannula O2 Flow Rate 3.00 Capillary Refill : Less Than 3 SecondsLess Than 3 Seconds I&O Intake and Output 01/17/19 00:00 Intake Total 1420 ml Output Total 500 ml Balance 920 ml Intake Oral 1300 ml IV Total 120 ml Output Urine Total 500 ml # Voids 4 General: Alert, Oriented X3, Cooperative, Moderate Distress HEENT: Atraumatic, PERRLA Neck: Supple, No JVD, No Thyromegaly Lungs: Normal Air Movement, Other (Bilateral wheezing, bilateral rhonchi) Heart: Regular Rate, Normal S1, Normal S2, Gallops, Other (Systolic murmur at the left sternal border) Abdomen: Normal Bowel Sounds, Soft, No Tenderness, No Hepatosplenomegaly, No Masses Extremities: No Clubbing, No Cyanosis, Normal Pulses, No Tenderness/Swelling, Other (Mild edema) Skin: No Rashes, No Breakdown, No Significant Lesion Neuro: Normal Gait, Normal Speech, Strength at 5/5 X4 Ext, Normal Tone, Sensation Intact Psych/Mental Status: Mental Status NL, Mood NL Results Lab Laboratory Tests 01/17/19 04:45 A/P-Cardiology Admission Diagnosis Shortness of breath Type II myocardial infarction Severe mitral regurgitation Coronary artery disease Assessment/Plan Shortness of breath, acute exacerbation of COPD, with an element of congestive heart failure, I will give Lasix 40 mg IV twice a day and monitor tolerance and response, continue on bronchodilator and steroid and monitor tolerance and response Irregular heart beat, currently in sinus rhythm with frequent atrial premature contractions, no atrial fibrillation was noted. Severe mitral regurgitation noted on 2-D Echo with dilated left atrium, will consider BARBIE once clinically more stable Type II myocardial infarction, slight elevation in troponin level probably due to respiratory failure and coronary artery disease. Coronary artery disease, history of CABG 3 done in 1986, clinically stable. No recent workup, did not follow-up with a performance specialist. Continue to monitor Hypertension, monitor blood pressure Questionable hyperlipidemia, monitor lipids. Clinical Quality Measures DVT/VTE Risk/Contraindication: Risk Factor Score Per Nursin RFS Level Per Nursing on Admit: 4+=Very High MILLY SEE MD Jan 17, 2019 05:41 POS
[2019-01-17] MEDS: FUROSEMIDE 40 MG/4 ML INJ (LASIX) IVP SCH ×2 (06:36→17:22)
[2019-01-17] MEDS: predniSONE 20 MG TAB PO SCH (06:36)
[2019-01-17] MEDS: RT-ADVAIR HFA 115/21 MCG PER PUFF IH SCH ×2 (07:16→19:07)
[2019-01-17 08:00] VITALS: BP 158/75
--- NOTE | 2019-01-17 08:19 | Physical Therapy Daily Note ---
PT Daily Note-Current Subjective Patient declined ambulation due to dyspnea. Requested toilet use. Pain Numeric Pain Scale: 0-No Pain Location: No Pain Reported Mental Status Patient Orientation: Normal For Age Attachments: Oxygen Transfers SCALE: Activities may be completed with or without assistive devices. 5-Wjybgwfnow-usftcmm completes the activity by him/herself with no assistance from a helper. 5-Set-up or Clean-up Assistance-helper sets up or cleans up; patient completes activity. [place] assists only prior to or following the activity. 4-Supervision or Touching Assistance-helper provides verbal cues and/or touching/steadying and/or contact guard assistance as patient completes activity. Assistance may be provided throughout the activity or intermittently. 3-Partial/Moderate Assistance-helper does LESS THAN HALF the effort. [place] lifts, holds or supports trunk or limbs, but provides less than half the effort. 2-Substantial/Maximal Assistance-helper does MORE THAN HALF the effort. [place] lifts or holds trunk or limbs and provides more than half the effort. 3-Kojovaxsn-bowbtq does ALL the effort. Patient does none of the effort to complete the activity. Or, the assistance of 2 or more helpers is required for the patient to complete the activity. If activity was not attempted, code reason: 7-Patient Refused. 9-Not Applicable-not attempted and the patient did not perform the activity before the current illness, exacerbation or injury. 10-Not Attempted due to Environmental Limitations-(lack of equipment, weather restraints, etc.). 88-Not Attempted due to Medical Conditions or Safety Concerns. Roll Left to Right (QC): 5 Sit to Lying (QC): 5 Sit to Stand (QC): 5 Weight Bearing Right Lower Extremity: Right Weight Bearing/Tolerated Left Lower Extremity: Left Weight Bearing/Tolerated Gait Training Does the Patient Walk?: Yes Distance: 15' x 2 Walk 10 feet (QC): 5 Walk 50 ft with 2 Turns(QC): 88 Walk 150 ft (QC): 88 Gait Assistive Device: FWW FWW for energy conservation Assessment PT assist for cleansing after toileting and changing dependents. Patient did wash hands after toileting. Patient sitting EOB upon completion. PT Half-Way Goals Half-Way Goals PT Machine Marker Goals Time Frame: Jan 21, 2019 Sit to Lying (QC): 6 Lying-Sitting on Side/Bed(QC): 6 Sit to Stand (QC): 6 Roll Left to Right (QC): 6 Chair/Ngb-fi-Pizka Xfer(QC): 6 Car Transfer (QC): 6 Does the Patient Walk: Yes Distance: 300' Walk 10 feet (QC): 6 Walk 10ft-Uneven Surface(QC): 6 Walk 50ft with 2 Turns (QC): 6 Walk 150 ft (QC): 6 Gait Assistive Device: FWW PT Plan Treatment/Plan Treatment Plan: Continue Plan of Care Treatment Plan: Education, Functional Activity Michael, Functional Strength, Gait, Safety, Therapeutic Exercise, Transfers, Other Treatment Duration: Jan 21, 2019 Frequency: 6 times per week Estimated Hrs Per Day: .25 hour per day Patient and/or Family Agrees t: Yes Time/GCodes Time In: 722 Time Out: 730 Total Billed Treatment Time: 8 Total Billed Treatment 1 visit FA 8 min YOU GRIGSBY PT Jan 17, 2019 08:19 POS
[2019-01-17] MEDS: ISOSORBIDE MONONITRATE 30 MG (IMDUR) TAB PO SCH (08:48)
[2019-01-17] MEDS: ASPIRIN E.C. 81 MG (ECOTRIN) TAB PO SCH (08:48)
[2019-01-17] MEDS: LORATADINE (CLARITIN) 10 MG TAB PO SCH (08:48)
[2019-01-17] MEDS: DOCUSATE SODIUM 100 MG (COLACE) CAP PO SCH ×2 (08:48→20:17)
[2019-01-17] MEDS: GABAPENTIN 300 MG (NEURONTIN) CAP PO SCH ×2 (08:48→20:17)
[2019-01-17] MEDS: NYSTATIN ORAL SUSP 5 ML UDC PO SCH ×2 (08:49→20:17)
[2019-01-17] MEDS ORDERED: NON-FORMULARY MEDICATION 1 EA EA (Fexofenadine HCl 180 MG) PO SCH (09:00)
--- NOTE | 2019-01-17 10:26 | Progress Note - Hospitalist ---
Subjective HPI/CC On Admission Date Seen by Provider: Jan 17, 2019 Time Seen by Provider: 09:00 shortness of breath Subjective/Events-last exam She reports having trouble breathing overnight. She is feeling better now. She has been urinating this morning after getting Lasix. She denies fevers and chills. She denies chest pain. She denies abdominal pain, nausea and vomiting. Focused Exam Lactate Level 01/15/19 13:18: Lactic Acid Level 0.63 Objective Exam Vital Signs Vital Signs Date Time Temp Pulse Resp B/P (MAP) Pulse Ox O2 Delivery O2 Flow Rate FiO2 01/17/19 08:10 98 Nasal Cannula 3.00 01/17/19 08:00 36.6 69 18 158/75 (102) Capillary Refill : Less Than 3 SecondsLess Than 3 Seconds General Appearance: No Apparent Distress, WD/WN HEENT: PERRL/EOMI, Moist Mucous Membranes Neck: Normal Inspection, Supple Respiratory: No Accessory Muscle Use, No Respiratory Distress, Wheezing Cardiovascular: Regular Rate, Rhythm, No Edema Gastrointestinal: Normal Bowel Sounds, Non Tender, Soft Extremity: Normal Inspection, Non Tender, No Pedal Edema Neurologic/Psychiatric: Alert, Oriented x3, No Motor/Sensory Deficits, Normal M ood/Affect Skin: Normal Color, Warm/Dry Lymphatic: No Adenopathy Results/Procedures Lab Laboratory Tests 01/17/19 04:45 Patient resulted labs reviewed. Assessment/Plan Assessment and Plan Assess & Plan/Chief Complaint Acute exacerbation of COPD Chronic hypoxemic respiratory failure Acute on chronic heart failure with preserved ejection fraction Premature atrial contractions NSTEMI, type II -Continue Prednisone -MAT protocol -TTE revealed grade 2 diastolic dysfunction, severe MR -Started on Lasix today -Cardiology following, planning for BARBIE once respiratory status improves -Follows with cruzito Tong NSCLC -Clinically significant, no acute management needs -Not currently on chemotherapy -Follows with Dr. Patricia DVT Prophylaxis: Lovenox Diagnosis/Problems Diagnosis/Problems (1) COPD with acute exacerbation Status: Acute (2) Chronic hypoxemic respiratory failure Status: Chronic (3) Non-small cell lung cancer Status: Chronic Qualifiers: Laterality: unspecified laterality Qualified Codes: C34.90 - Malignant neoplasm of unspecified part of unspecified bronchus or lung (4) Acute on chronic heart failure with preserved ejection fraction (HFpEF) Status: Acute (5) NSTEMI (non-ST elevation myocardial infarction) Status: Acute Clinical Quality Measures DVT/VTE Risk/Contraindication: Risk Factor Score Per Nursin RFS Level Per Nursing on Admit: 4+=Very High MYRNA HARRELL MD Jan 17, 2019 10:26 POS
[2019-01-17 12:00] VITALS: BP 150/79
[2019-01-17 16:11] VITALS: BP 118/75
[2019-01-17] MEDS: ENOXAPARIN 40 MG/0.4 ML (LOVENOX) SYR SC SCH (18:03)
[2019-01-17 20:00] VITALS: BP 120/68
[2019-01-17] MEDS: TIMOLOL MALEATE 0.5% 5 ML (TIMOPTIC) BTL OU SCH (20:17)
[2019-01-17] MEDS: MONTELUKAST 10 MG (SINGULAIR) TAB PO SCH (20:17)
[2019-01-17] MEDS: SIMvastatin 10 MG (ZOCOR) TAB PO SCH (20:17)
[2019-01-18] VITALS (7 sets, daily range): BP systolic 118–144; BP diastolic 70–82
[2019-01-18] MEDS: RT-ALBUTEROL/IPRATROPIUM 3 ML (DUONEB) VIAL INH SCH ×6 (02:13→21:26)
[2019-01-18] MEDS: CATHETER FLUSH 10 ML SYR IV SCH ×3 (04:45→20:12)
[2019-01-18 04:59] LABS: BASOPHILS % (AUTO) 0 % (0-10); EOSINOPHILS % (AUTO) 0 % (0-10); HEMATOCRIT 35 % (35-52); LYMPHOCYTES # (AUTO) 0.8 X 10^3 (1.0-4.0); LYMPHOCYTES % (AUTO) 16 % (12-44); MEAN CORPUSCULAR HEMOGLOBIN 29 PG (25-34); MEAN CORPUSCULAR HGB CONC 29 G/DL (32-36); MEAN CORPUSCULAR VOLUME 101 FL (80-99); MEAN PLATELET VOLUME 10.2 FL (7.4-10.4); MONOCYTES # (AUTO) 0.8 X 10^3 (0.0-1.0); MONOCYTES % (AUTO) 15 % (0-12); NEUTROPHILS # (AUTO) 3.6 X 10^3 (1.8-7.8); NEUTROPHILS % (AUTO) 70 % (42-75); PLATELET COUNT 156 10^3/uL (130-400); WHITE BLOOD COUNT 5.1 10^3/uL (4.3-11.0)
--- NOTE | 2019-01-18 05:11 | Pulmonary Consultation ---
History of Present Illness History of Present Illness Date of Consultation 01/18/19 05:05 Time Seen by Provider: 05:06 Date of Admission Reason for Visit: Shortness of breath History of Present Illness 83yo with hx of oxygen dependent COPD, NSCLC completed chemo presneted to ED secondary to worsening SOB, and cough. Denies f/ns/c. No CP, abd Pain, or palpitations. Allergies and Home Medications Allergies Coded Allergies: cilostazol (Verified Allergy, Unknown, 05/28/17) Uncoded Allergies: TAPE (Allergy, Unknown, 05/28/17) Home Medications Aspirin 81 Mg Tablet.dr, 81 MG PO DAILY, (Reported) Budesonide/Formoterol Fumarate 10.2 Gm Hfa.aer.ad, 2 PUFF IH BID, (Reported) Fexofenadine HCl 180 Mg Tablet, 180 MG PO DAILY, (Reported) Gabapentin 300 Mg Capsule, 300 MG PO BID, (Reported) Ipratropium/Albuterol Sulfate 3 Ml Ampul.neb, 3 ML NEB QID PRN for SHORTNESS OF BREATH, (Reported) Isosorbide Mononitrate 30 Mg Tab.er.24h, 30 MG PO DAILY, (Reported) Lovastatin 20 Mg Tablet, 20 MG PO HS, (Reported) Magnesium Oxide 400 Mg Tablet, 400 MG PO DAILY, (Reported) Montelukast Sodium 10 Mg Tablet, 10 MG PO HS, (Reported) Mv-Mn/FA/Coq10/Lycopene/Lutein 1 Each Tablet, 1 TAB PO DAILY, (Reported) Timolol Maleate 5 Ml Drops, 1 DROP OU HS, (Reported) Past Pabneqp-Kspyzv-Wygwyl Hx Past Med/Social Hx: Reviewed Nursing Past Med/Soc Hx Patient Social History Alcohol Use: Denies Use Recreational Drug Use: No Former Smoker, Quit: Apr 29, 2017 2nd Hand Smoke Exposure: No Recent Foreign Travel: No Contact w/Someone Who Travel: No Recent Infectious Disease Expo: No Recent Hopitalizations: Yes (apr 2017 cancer) Physical Abuse: No Sexual Abuse: No Mistreated: No Fear: No Immunizations Up To Date PED Vaccines UTD: No Date of Pneumonia Vaccine: Jan 15, 2015 Date of Influenza Vaccine: Dec 07, 2016 Seasonal Allergies Seasonal Allergies: Yes Past Medical History Surgeries: Yes Angioplasty, CABG, Hysterectomy Respiratory: Yes (wears oxygen, lung ca) COPD Currently Using CPAP: No Currently Using BIPAP: No Cardiac: Yes (cabage) Hypertension Neurological: Yes (renaulds) Headaches /Migraines : No 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 Genitourinary: No Gastrointestinal: No Irritable Bowel Musculoskeletal: Yes Arthritis Endocrine: No HEENT: No Glaucoma Hearing Impairment: Hard of Hearing Cancer: Yes Lung Did You Recieve Any Treatments: Yes What Type of Treatment Did You: Chemotherapy, Radiation imuno therapy Psychosocial: No Integumentary: No Blood Disorders: No Adverse Reaction/Blood Tranf: No Family Medical History Cardiovascular disease 19 MOTHER G8 BROTHER G8 BROTHER G8 SISTER Diabetes mellitus G8 BROTHER Glaucoma 19 MOTHER Myocardial infarction G8 BROTHER Sepsis Event Evaluation Height, Weight, BMI Height: 4'10.00" Weight: 124lbs. 0.0oz. 56.420337vf; 28.48 BMI Method: Exam Exam Vital Signs Date Time Temp Pulse Resp B/P (MAP) Pulse Ox O2 Delivery O2 Flow Rate FiO2 01/18/19 04:00 36.4 69 18 133/80 (97) 98 Nasal Cannula 4.00 01/18/19 03:32 35.7 74 99 36 01/18/19 02:15 99 Nasal Cannula 4.00 01/18/19 01:00 74 01/18/19 00:00 35.7 57 16 118/72 (87) 97 Nasal Cannula 4.00 01/17/19 21:33 99 Nasal Cannula 4.00 01/17/19 20:35 Nasal Cannula 3.00 01/17/19 20:00 36.7 89 18 120/68 (85) 98 Nasal Cannula 4.00 01/17/19 19:17 99 Nasal Cannula 3.00 01/17/19 19:16 Nasal Cannula 3.00 01/17/19 19:07 98 Nasal Cannula 3.00 01/17/19 19:00 102 01/17/19 16:11 36.6 89 20 118/75 (89) 99 Nasal Cannula 3.00 01/17/19 14:54 96 Nasal Cannula 3.00 01/17/19 12:12 107 01/17/19 12:00 36.6 83 18 150/79 (102) 94 Nasal Cannula 3.00 01/17/19 11:28 96 Nasal Cannula 3.00 01/17/19 08:10 98 Nasal Cannula 3.00 01/17/19 08:00 36.6 69 18 158/75 (102) 93 Nasal Cannula 3.00 01/17/19 07:14 98 Nasal Cannula 3.00 01/17/19 07:00 84 I & O 01/18/19 07:00 Intake Total 820 ml Output Total 700 ml Balance 120 ml Height & Weight Height: 4'10.00" Weight: 124lbs. 0.0oz. 56.666406us; 28.48 BMI Method: General Appearance: No Apparent Distress, WD/WN HEENT: PERRL/EOMI, Moist Mucous Membranes Neck: Normal Inspection, Supple Respiratory: No Accessory Muscle Use, No Respiratory Distress, Wheezing Cardiovascular: Regular Rate, Rhythm, No Edema Capillary Refill: Less Than 3 Seconds Extremity: Normal Inspection, Non Tender, No Pedal Edema Neurologic/Psychiatric: Alert, Oriented x3, No Motor/Sensory Deficits, Normal Mood/Affect Skin: Normal Color, Warm/Dry Lymphatic: No Adenopathy Results Lab Laboratory Tests 01/17/19 04:45 Assessment/Plan Assessment/Plan COPDAE -Pt does have home 02 -Prednisone -SVNS CHFAE with pulmonary edema and small right pleural effusion -Currently on Lasix -Cardiology following NSTEMI type II Hyperkalemia -Labs for this AM are pending NICOLÁS BAZZI DO Jan 18, 2019 05:11 POS
[2019-01-18 05:19] LABS: BUN/CREATININE RATIO 35; CALCIUM 9.5 MG/DL (8.5-10.1); CARBON DIOXIDE 41 MMOL/L (21-32); CHLORIDE 96 MMOL/L (98-107); CREATININE SERUM 0.81 MG/DL (0.60-1.30); GFR ESTIMATED > 60; GLUCOSE 92 MG/DL (70-105); MAGNESIUM 1.7 MG/DL (1.6-2.4); POTASSIUM 3.8 MMOL/L (3.6-5.0); SODIUM 146 MMOL/L (135-145)
[2019-01-18] MEDS: RT-ADVAIR HFA 115/21 MCG PER PUFF IH SCH ×2 (06:43→19:18)
[2019-01-18] MEDS: FUROSEMIDE 40 MG/4 ML INJ (LASIX) IVP SCH ×2 (06:47→17:08)
[2019-01-18] MEDS: predniSONE 20 MG TAB PO SCH (06:47)
--- NOTE | 2019-01-18 07:44 | Cardiology Progress Note ---
Subjective Date Seen by Provider: Jan 18, 2019 Time Seen by Provider: 07:43 Subjective/Events-last exam Patient is laying down in bed, feeling better. Denied any chest pain Review of Systems General: No Chills, No Night Sweats, No Fatigue, No Malaise, No Appetite, No Other HEENT: No Head Aches, No Visual Changes, No Eye Pain, No Ear Pain, No Dysphasia, No Sinus Congestion, No Post Nasal Drip, No Sore Throat, No Other Pulmonary: No Dyspnea, No Cough, No Pleuritic Chest Pain, No Other Cardiovascular: No: Chest Pain, Palpitations, Orthopnea, Paroxysmal Noc. Dyspnea, Edema, Lt Headedness, Other Focused Exam Lactate Level 01/15/19 13:18: Lactic Acid Level 0.63 Objective-Cardiology Exam Last Set of Vital Signs Vital Signs 01/18/19 01/18/19 01/18/19 01/18/19 03:32 04:00 06:45 07:00 Temp 36.4 Pulse 79 Resp 18 B/P (MAP) 133/80 (97) Pulse Ox 91 O2 Delivery Nasal Cannula O2 Flow Rate 4.00 FiO2 36 Capillary Refill : Less Than 3 SecondsLess Than 3 Seconds I&O Intake and Output 01/18/19 00:00 Intake Total 970 ml Output Total 1100 ml Balance -130 ml Intake Oral 970 ml Output Urine Total 1100 ml # Bowel Movements 2 General: Alert, Oriented X3, Cooperative, Moderate Distress HEENT: Atraumatic, PERRLA Neck: Supple, No JVD, No Thyromegaly Lungs: Normal Air Movement, Other (Bilateral wheezing, bilateral rhonchi) Heart: Regular Rate, Normal S1, Normal S2, Gallops, Other (Systolic murmur at the left sternal border) Abdomen: Normal Bowel Sounds, Soft, No Tenderness, No Hepatosplenomegaly, No Masses Extremities: No Clubbing, No Cyanosis, Normal Pulses, No Tenderness/Swelling, Other (Mild edema) Skin: No Rashes, No Breakdown, No Significant Lesion Neuro: Normal Gait, Normal Speech, Strength at 5/5 X4 Ext, Normal Tone, Sensation Intact Psych/Mental Status: Mental Status NL, Mood NL Results Lab Laboratory Tests 01/18/19 04:45 A/P-Cardiology Admission Diagnosis Shortness of breath Type II myocardial infarction Severe mitral regurgitation Coronary artery disease Assessment/Plan Shortness of breath, acute exacerbation of COPD, with an element of congestive heart failure, improving, still have significant wheezing, continue with diuretics and bronchodilators. Irregular heart beat, currently in sinus rhythm with frequent atrial premature contractions, no atrial fibrillation was noted. Severe mitral regurgitation noted on 2-D Echo with dilated left atrium, will consider BARBIE once clinically more stable Type II myocardial infarction, slight elevation in troponin level probably due to respiratory failure and coronary artery disease. Coronary artery disease, history of CABG 3 done in 1986, clinically stable. No recent workup, did not follow-up with a doorperson. Continue to monitor Hypertension, monitor blood pressure Questionable hyperlipidemia, monitor lipids. Clinical Quality Measures DVT/VTE Risk/Contraindication: Risk Factor Score Per Nursin RFS Level Per Nursing on Admit: 4+=Very High MILLY SEE MD Jan 18, 2019 07:44 POS
[2019-01-18] MEDS: GABAPENTIN 300 MG (NEURONTIN) CAP PO SCH ×2 (09:56→20:01)
[2019-01-18] MEDS: DOCUSATE SODIUM 100 MG (COLACE) CAP PO SCH ×3 (09:56→20:05)
[2019-01-18] MEDS: ISOSORBIDE MONONITRATE 30 MG (IMDUR) TAB PO SCH (09:56)
[2019-01-18] MEDS: NYSTATIN ORAL SUSP 5 ML UDC PO SCH ×2 (09:56→20:01)
[2019-01-18] MEDS: LORATADINE (CLARITIN) 10 MG TAB PO SCH (09:56)
[2019-01-18] MEDS: ASPIRIN E.C. 81 MG (ECOTRIN) TAB PO SCH (09:56)
--- NOTE | 2019-01-18 13:14 | Progress Note - Hospitalist ---
Subjective HPI/CC On Admission Date Seen by Provider: Jan 18, 2019 Time Seen by Provider: 09:10 shortness of breath Subjective/Events-last exam She reports that her breathing is doing better. She slept well. She denies fever and chills. She denies chest pain. She denies abdominal pain, nausea, and vomiting. Focused Exam Lactate Level 01/15/19 13:18: Lactic Acid Level 0.63 Objective Exam Vital Signs Vital Signs Date Time Temp Pulse Resp B/P (MAP) Pulse Ox O2 Delivery O2 Flow Rate FiO2 01/18/19 11:37 36.8 79 20 135/82 (99) 98 Nasal Cannula 4.00 01/18/19 03:32 36 Capillary Refill : Less Than 3 SecondsLess Than 3 Seconds General Appearance: No Apparent Distress, Chronically ill HEENT: PERRL/EOMI, Pharynx Normal, Other (hearing difficulty) Respiratory: No Accessory Muscle Use, No Respiratory Distress, Wheezing (diffuse inspiratory and expiratory) Cardiovascular: Regular Rate, Rhythm, No Edema, No Murmur Gastrointestinal: Normal Bowel Sounds, Non Tender, Soft Extremity: Normal Inspection, Non Tender, No Pedal Edema Neurologic/Psychiatric: Alert, Oriented x3, No Motor/Sensory Deficits, Normal Mood/Affect Skin: Normal Color, Warm/Dry Results/Procedures Lab Laboratory Tests 01/18/19 04:45 Patient resulted labs reviewed. Imaging: Reviewed Imaging Report Assessment/Plan Assessment and Plan Assess & Plan/Chief Complaint Acute exacerbation of COPD Chronic hypoxemic respiratory failure Acute on chronic heart failure with preserved ejection fraction Premature atrial contractions NSTEMI, type II CAD s/p CABG 1986 -Continue Prednisone -MAT protocol -TTE revealed grade 2 diastolic dysfunction, severe MR -Continue Lasix -Cardiology following, planning for BARBIE once respiratory status improves -Pulmonology following NSCLC -Clinically significant, no acute management needs -Not currently on chemotherapy -Follows with Dr. Patricia DVT Prophylaxis: Lovenox Diagnosis/Problems Diagnosis/Problems (1) COPD with acute exacerbation Status: Acute (2) Chronic hypoxemic respiratory failure Status: Chronic (3) Non-small cell lung cancer Status: Chronic Qualifiers: Laterality: unspecified laterality Qualified Codes: C34.90 - Malignant kyle plasm of unspecified part of unspecified bronchus or lung (4) Acute on chronic heart failure with preserved ejection fraction (HFpEF) Status: Acute (5) NSTEMI (non-ST elevation myocardial infarction) Status: Acute Clinical Quality Measures DVT/VTE Risk/Contraindication: Risk Factor Score Per Nursin RFS Level Per Nursing on Admit: 4+=Very High MYRNA HARRELL MD Jan 18, 2019 13:14 POS
[2019-01-18] MEDS: ENOXAPARIN 40 MG/0.4 ML (LOVENOX) SYR SC SCH (18:38)
[2019-01-18] MEDS ORDERED: meTOprolol 5 MG/5 ML (LOPRESSOR) VIAL IV ONE (19:00)
[2019-01-18] MEDS: MONTELUKAST 10 MG (SINGULAIR) TAB PO SCH (20:01)
[2019-01-18] MEDS: TIMOLOL MALEATE 0.5% 5 ML (TIMOPTIC) BTL OU SCH (20:02)
[2019-01-18] MEDS: SIMvastatin 10 MG (ZOCOR) TAB PO SCH (20:08)
[2019-01-18] MEDS ORDERED: meTOprolol 5 MG/5 ML (LOPRESSOR) VIAL ONE (21:34)
[2019-01-19] VITALS (21 sets, daily range): BP systolic 81–138; BP diastolic 55–85
[2019-01-19] MEDS: RT-ALBUTEROL/IPRATROPIUM 3 ML (DUONEB) VIAL INH SCH ×6 (02:58→21:17)
[2019-01-19] MEDS: FUROSEMIDE 40 MG/4 ML INJ (LASIX) IVP SCH ×2 (05:41→16:45)
[2019-01-19] MEDS: CATHETER FLUSH 10 ML SYR IV SCH ×3 (05:42→20:46)
[2019-01-19] MEDS: predniSONE 20 MG TAB PO SCH (05:42)
[2019-01-19] MEDS: RT-ADVAIR HFA 115/21 MCG PER PUFF IH SCH ×3 (06:29→18:06)
[2019-01-19] MEDS ORDERED: meTOprolol 5 MG/5 ML (LOPRESSOR) VIAL ONE (07:36)
[2019-01-19] MEDS ORDERED: meTOprolol 5 MG/5 ML (LOPRESSOR) VIAL IV ONE (07:45)
[2019-01-19 08:05] LABS: BASOPHILS % (AUTO) 0 % (0-10); EOSINOPHILS % (AUTO) 0 % (0-10); HEMATOCRIT 38 % (35-52); HEMOGLOBIN 10.8 G/DL (11.5-16.0); LYMPHOCYTES # (AUTO) 0.9 X 10^3 (1.0-4.0); LYMPHOCYTES % (AUTO) 20 % (12-44); MEAN CORPUSCULAR HEMOGLOBIN 28 PG (25-34); MEAN CORPUSCULAR HGB CONC 28 G/DL (32-36); MEAN CORPUSCULAR VOLUME 101 FL (80-99); MEAN PLATELET VOLUME 10.8 FL (7.4-10.4); MONOCYTES # (AUTO) 0.8 X 10^3 (0.0-1.0); MONOCYTES % (AUTO) 17 % (0-12); NEUTROPHILS # (AUTO) 2.9 X 10^3 (1.8-7.8); NEUTROPHILS % (AUTO) 63 % (42-75); PLATELET COUNT 170 10^3/uL (130-400); RED CELL DISTRIBUTION WIDTH 13.1 % (10.0-14.5); WHITE BLOOD COUNT 4.6 10^3/uL (4.3-11.0)
[2019-01-19 08:30] LABS: BUN/CREATININE RATIO 36; CALCIUM 9.7 MG/DL (8.5-10.1); CARBON DIOXIDE 43 MMOL/L (21-32); CHLORIDE 92 MMOL/L (98-107); CREATININE SERUM 0.85 MG/DL (0.60-1.30); GFR ESTIMATED > 60; GLUCOSE 80 MG/DL (70-105); POTASSIUM 3.3 MMOL/L (3.6-5.0); SODIUM 144 MMOL/L (135-145)
--- NOTE | 2019-01-19 08:43 | Cardiology Progress Note ---
Subjective Date Seen by Provider: Jan 19, 2019 Time Seen by Provider: 08:38 Subjective/Events-last exam Patient is sitting up in chair, eating breakfast. Noted to be tachycardic this morning. Denies any chest pain . Objective-Cardiology Exam Last Set of Vital Signs Vital Signs 01/18/19 01/19/19 01/19/19 01/19/19 03:32 04:00 06:29 07:00 Temp 36.1 Pulse 140 Resp 18 B/P (MAP) 126/74 (91) Pulse Ox 96 O2 Delivery Nasal Cannula O2 Flow Rate 4.00 FiO2 36 Capillary Refill : Less Than 3 SecondsLess Than 3 Seconds I&O Intake and Output 01/19/19 00:00 Intake Total 1605 ml Output Total 1800 ml Balance -195 ml Intake Oral 1605 ml Output Urine Total 1800 ml # Voids 1 # Bowel Movements 1 General: Alert, Oriented X3, Cooperative, Moderate Distress HEENT: Atraumatic, PERRLA Neck: Supple, No JVD, No Thyromegaly Lungs: Normal Air Movement, Other (bilateral wheezing, rhonchi) Heart: Regular Rate, Normal S1, Normal S2, Gallops, Other (Systolic murmur at the left sternal border, tachycardic) Abdomen: Normal Bowel Sounds, Soft, No Tenderness, No Hepatosplenomegaly, No Masses Extremities: No Clubbing, No Cyanosis, Normal Pulses, No Tenderness/Swelling, Other (Mild edema) Skin: No Rashes, No Breakdown, No Significant Lesion Neuro: Normal Gait, Normal Speech, Strength at 5/5 X4 Ext, Normal Tone, Sensation Intact Psych/Mental Status: Mental Status NL, Mood NL Results Lab Laboratory Tests 01/19/19 04:45 A/P-Cardiology Admission Diagnosis Shortness of breath Type II myocardial infarction Severe mitral regurgitation Coronary artery disease Assessment/Plan Shortness of breath, acute exacerbation of COPD, with an element of congestive heart failure, improving, still have significant wheezing, continue with diureti cs and bronchodilators. Irregular heart beat, currently in sinus rhythm with frequent atrial premature contractions, no atrial fibrillation noted. Patient is tachycardic this morning. Continue Lopressor. Severe mitral regurgitation noted on 2-D Echo with dilated left atrium, will consider BARBIE once clinically more stable Type II myocardial infarction, slight elevation in troponin level probably due to respiratory failure and coronary artery disease. Coronary artery disease, history of CABG 3 done in 1986, clinically stable. 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 Continue to monitor Hypertension, controlled, continue to monitor blood pressure Questionable hyperlipidemia, monitor lipids. Clinical Quality Measures DVT/VTE Risk/Contraindication: Risk Factor Score Per Nursin RFS Level Per Nursing on Admit: 4+=Very High JONATHON ORLANDO Jan 19, 2019 08:43 POS
--- NOTE | 2019-01-19 09:23 | Cardiology Progress Note ---
Subjective Date Seen by Provider: Jan 19, 2019 Time Seen by Provider: 09:21 Subjective/Events-last exam patient is in bed, still having some shortness of breath. No chest pain, went back to atrial fibrillation with rapid ventricular response, did not respond to Lopressor IV. Review of Systems General: No Chills, No Night Sweats; Fatigue, Malaise; No Appetite, No Other HEENT: No Head Aches, No Visual Changes, No Eye Pain, No Ear Pain, No Dysphasia, No Sinus Congestion, No Post Nasal Drip, No Sore Throat, No Other Pulmonary: Dyspnea, Cough; No Pleuritic Chest Pain, No Other Cardiovascular: No: Chest Pain, Palpitations, Orthopnea, Paroxysmal Noc. Dyspnea, Edema, Lt Headedness, Other Objective-Cardiology Exam Last Set of Vital Signs Vital Signs 01/18/19 01/19/19 01/19/19 01/19/19 03:32 04:00 06:29 07:00 Temp 36.1 Pulse 140 Resp 18 B/P (MAP) 126/74 (91) Pulse Ox 96 O2 Delivery Nasal Cannula O2 Flow Rate 4.00 FiO2 36 Capillary Refill : Less Than 3 SecondsLess Than 3 Seconds I&O Intake and Output 01/19/19 00:00 Intake Total 1605 ml Output Total 1800 ml Balance -195 ml Intake Oral 1605 ml Output Urine Total 1800 ml # Voids 1 # Bowel Movements 1 General: Alert, Oriented X3, Cooperative, Moderate Distress HEENT: Atraumatic, PERRLA Neck: Supple, No JVD, No Thyromegaly Lungs: Normal Air Movement, Other (bilateral wheezing, rhonchi) Heart: Normal S1, Normal S2, Gallops, Other (Systolic murmur at the left sternal border, a regular and tachycardic) Abdomen: Normal Bowel Sounds, Soft, No Tenderness, No Hepatosplenomegaly, No Masses Extremities: No Clubbing, No Cyanosis, Normal Pulses, No Tenderness/Swelling, Other (Mild edema) Skin: No Rashes, No Breakdown, No Significant Lesion Neuro: Normal Gait, Normal Speech, Strength at 5/5 X4 Ext, Normal Tone, Sensation Intact Psych/Mental Status: Mental Status NL, Mood NL Results Lab Laboratory Tests 01/19/19 04:45 A/P-Cardiology Admission Diagnosis Shortness of breath Type II myocardial infarction Severe mitral regurgitation Coronary artery disease Assessment/Plan Shortness of breath, acute exacerbation of COPD, with an element of congestive heart failure, improving, still have significant wheezing, continue with diuretics and bronchodilators. Paroxysmal atrial fibrillation, appear to be tachycardic at this time, I'm transferring to ICU and starting Cardizem drip and monitor tolerance and response. Severe mitral regurgitation noted on 2-D Echo with dilated left atrium, planning to proceed with BARBIE and possible cardioversion Type II myocardial infarction, slight elevation in troponin level probably due to respiratory failure and coronary artery disease. Coronary artery disease, history of CABG 3 done in 1986, clinically stable. No recent workup, did not follow-up with a practice director. Continue to monitor Hypertension, controlled, continue to monitor blood pressure Questionable hyperlipidemia, monitor lipids. Clinical Quality Measures DVT/VTE Risk/Contraindication: Risk Factor Score Per Nursin RFS Level Per Nursing on Admit: 4+=Very High MILLY SEE MD Jan 19, 2019 09:23 POS
--- NOTE | 2019-01-19 09:31 | Pulmonary Progress Note ---
Subjective Date Seen by a Provider: Jan 19, 2019 Time Seen by a Provider: 09:26 Subjective/Events-last exam No acute events overnight. Patient is sitting up at bedside and reports that she is experiencing cough with white sputum and shortness of breath. She denies any fevers and chills. Review of Systems Pulmonary: Dyspnea, Cough Sepsis Event Evaluation Height, Weight, BMI Height: 4'10.00" Weight: 124lbs. 0.0oz. 56.236673ju; 28.48 BMI Method: Exam Exam Vital Signs Date Time Temp Pulse Resp B/P (MAP) Pulse Ox O2 Delivery O2 Flow Rate FiO2 01/19/19 07:00 140 01/19/19 06:29 96 Nasal Cannula 4.00 01/19/19 04:00 36.1 135 18 126/74 (91) 95 Nasal Cannula 4.00 01/19/19 02:58 98 Nasal Cannula 4.00 01/19/19 00:47 133 01/19/19 00:00 35.9 132 18 113/79 (90) 99 Nasal Cannula 4.00 01/18/19 21:26 97 Nasal Cannula 4.00 01/18/19 20:53 36.0 75 20 123/70 (87) 86 Nasal Cannula 4.00 01/18/19 20:00 Nasal Cannula 3.00 01/18/19 19:24 98 Nasal Cannula 4.00 01/18/19 19:19 97 Nasal Cannula 4.00 01/18/19 19:01 150 01/18/19 16:38 36.4 75 18 127/82 (97) 98 Nasal Cannula 4.00 01/18/19 14:34 96 Nasal Cannula 4.00 01/18/19 13:00 108 01/18/19 11:37 36.8 79 20 135/82 (99) 98 Nasal Cannula 4.00 01/18/19 11:06 96 Nasal Cannula 4.00 I & O 01/19/19 07:00 Intake Total 1680 ml Output Total 2100 ml Balance -420 ml Height & Weight Height: 4'10.00" Weight: 124lbs. 0.0oz. 56.552536je; 28.48 BMI Method: General Appearance: No Apparent Distress, Chronically ill HEENT: PERRL/EOMI, Pharynx Normal, Other (hearing difficulty) Neck: Normal Inspection, Supple Respiratory: No Accessory Muscle Use, No Respiratory Distress, Wheezing (diffuse inspiratory and expiratory) Cardiovascular: No Edema, No Murmur, Tachycardia Capillary Refill: Less Than 3 Seconds Extremity: Normal Inspection, Non Tender, No Pedal Edema Neurologic/Psychiatric: Alert, Oriented x3, No Motor/Sensory Deficits, Normal Mood/Affect Skin: Normal Color, Warm/Dry Lymphatic: No Adenopathy Results Lab Laboratory Tests 01/18/19 04:45 01/19/19 04:45 Assessment/Plan Assessment/Plan COPDAE -On 3L O2 at home -Prednisone 40mg daily -Duoneb RT Q4 and PRN Q2 -Advair -Singulair CHFAE with pulmonary edema and small right pleural effusion -Currently on Lasix 40mg daily -Cardiology following Afib wit RVR -Cardiology following - Transfer to ICU to initiate Cardizem drip NSTEMI type II Hyperkalemia -resolved VERN ONLASCO MED STUDENT Jan 19, 2019 09:31 POS
[2019-01-19] MEDS: NYSTATIN ORAL SUSP 5 ML UDC PO SCH ×2 (09:39→20:46)
[2019-01-19] MEDS: ISOSORBIDE MONONITRATE 30 MG (IMDUR) TAB PO SCH (09:39)
[2019-01-19] MEDS: LORATADINE (CLARITIN) 10 MG TAB PO SCH (09:39)
[2019-01-19] MEDS: GABAPENTIN 300 MG (NEURONTIN) CAP PO SCH ×2 (09:39→20:46)
[2019-01-19] MEDS: ASPIRIN E.C. 81 MG (ECOTRIN) TAB PO SCH (09:39)
--- NOTE | 2019-01-19 09:40 | Physical Therapy Daily Note ---
PT Daily Note-Current Subjective Patient agrees to PT. Reports feeling better today and less SOB after walking. Reports no pain. Pain Numeric Pain Scale: 0-No Pain Location: No Pain Reported Mental Status Patient Orientation: Normal For Age Attachments: Oxygen (4L) Transfers SCALE: Activities may be completed with or without assistive devices. 1-Ntvcheoffr-buapiew completes the activity by him/herself with no assistance from a helper. 5-Set-up or Clean-up Assistance-helper sets up or cleans up; patient completes activity. [place] assists only prior to or following the activity. 4-Supervision or Touching Assistance-helper provides verbal cues and/or touching/steadying and/or contact guard assistance as patient completes activity. Assistance may be provided throughout the activity or intermittently. 3-Partial/Moderate Assistance-helper does LESS THAN HALF the effort. [place] lifts, holds or supports trunk or limbs, but provides less than half the effort. 2-Substantial/Maximal Assistance-helper does MORE THAN HALF the effort. [place] lifts or holds trunk or limbs and provides more than half the effort. 7-Syfllmsbi-ceopxn does ALL the effort. Patient does none of the effort to complete the activity. Or, the assistance of 2 or more helpers is required for the patient to complete the activity. If activity was not attempted, code reason: 7-Patient Refused. 9-Not Applicable-not attempted and the patient did not perform the activity befo re the current illness, exacerbation or injury. 10-Not Attempted due to Environmental Limitations-(lack of equipment, weather re straints, etc.). 88-Not Attempted due to Medical Conditions or Safety Concerns. Sit to Stand (QC): 6 Weight Bearing Right Lower Extremity: Right Weight Bearing/Tolerated Left Lower Extremity: Left Weight Bearing/Tolerated Gait Training Does the Patient Walk?: Yes Gait: 6 Distance: 200' Walk 10 feet (QC): 6 Walk 50 ft with 2 Turns(QC): 6 Walk 150 ft (QC): 6 Gait Assistive Device: FWW Independent ambulation with FWW; slow pace Assessment Patient sitting at EOB prior to PT. Able to stand and ambulate independently with use of FWW. Ambulated 200' with distance limited by LE weakness. Reported some SOB at conclusion of ambulation but much better than previously. Patient seated at EOB for breakfast at conclusion of treatment. PT Res[employer] Nurse Goals PT Residential Goals Time Frame: Jan 21, 2019 Sit to Lying (QC): 6 Lying-Sitting on Side/Bed(QC): 6 Sit to Stand (QC): 6 Roll Left to Right (QC): 6 Chair/May-ul-Bhzfa Xfer(QC): 6 Car Transfer (QC): 6 Does the Patient Walk: Yes Distance: 300' Walk 10 feet (QC): 6 Walk 10ft-Uneven Surface(QC): 6 Walk 50ft with 2 Turns (QC): 6 Walk 150 ft (QC): 6 Gait Assistive Device: FWW PT Plan Treatment/Plan Treatment Plan: Continue Plan of Care Treatment Plan: Education, Functional Activity Michael, Functional Strength, Gait, Safety, Therapeutic Exercise, Transfers, Other Treatment Duration: Jan 21, 2019 Frequency: 6 times per week Estimated Hrs Per Day: .25 hour per day Patient and/or Family Agrees t: Yes Time/GCodes Time In: 805 Time Out: 815 Total Billed Treatment Time: 10 Total Billed Treatment 1 visit FA 10min YOU GRIGSBY PT Jan 19, 2019 09:40 POS
[2019-01-19] MEDS: DOCUSATE SODIUM 100 MG (COLACE) CAP PO SCH ×2 (09:46→20:46)
[2019-01-19] MEDS: DILTIAZEM IV FOR DRIP 125 MG in NS (IVPB) 100 ML IV SCH (10:30)
--- NOTE | 2019-01-19 11:53 | Progress Note - Hospitalist ---
Subjective HPI/CC On Admission Date Seen by Provider: Jan 19, 2019 Time Seen by Provider: 11:46 shortness of breath Subjective/Events-last exam Pt was transferred to the ICU due to a-fib with RVR by Dr Lam. Patient denies any symptoms of chest pain or palpitations. She does state she feels like she has mucus but can't get it out. Objective Exam Vital Signs Vital Signs Date Time Temp Pulse Resp B/P (MAP) Pulse Ox O2 Delivery O2 Flow Rate FiO2 01/19/19 11:00 149 24 96/84 (88) 98 Nasal Cannula 4.00 01/19/19 10:37 37.3 01/18/19 03:32 36 Capillary Refill : Less Than 3 SecondsLess Than 3 Seconds General Appearance: No Apparent Distress, WD/WN Respiratory: No Accessory Muscle Use, No Respiratory Distress; No Rhonci, No Wheezing Cardiovascular: No Murmur, Irregularly Irregular, Tachycardia Gastrointestinal: Normal Bowel Sounds, Non Tender, Soft Neurologic/Psychiatric: Alert, Oriented x3 Results/Procedures Lab Laboratory Tests 01/19/19 04:45 Patient resulted labs reviewed. Imaging: Reviewed Imaging Report Assessment/Plan Assessment and Plan Assess & Plan/Chief Complaint Atrial Fibrillation with RVR Acute on chronic heart failure with preserved ejection fraction NSTEMI, type II CAD s/p CABG 1986 - Continue Cardizem gtt - Marginally hypotensive- monitor closely - Cardiology consulted, appreciate recs -TTE revealed grade 2 diastolic dysfunction, severe MR - Dr Lam had previously planned BARBIE for tomorrow Acute exacerbation of COPD Chronic hypoxemic respiratory failure -Continue Prednisone -MAT protocol -Continue Lasix -Pulmonology following NSCLC -Not currently on chemotherapy -Follows with Dr. Patricia DVT Prophylaxis: Lovenox therapeutic dosing now Diagnosis/Problems Diagnosis/Problems (1) Atrial fibrillation with RVR (2) CAD (coronary artery disease) (3) Acute on chronic heart failure with preserved ejection fraction (HFpEF) Status: Acute (4) NSTEMI (non-ST elevation myocardial infarction) Status: Acute (5) COPD with acute exacerbation Status: Acute (6) Chronic hypoxemic respiratory failure Status: Chronic (7) Elevated troponin Status: Acute (8) Non-small cell lung cancer Status: Chronic Qualifiers: Laterality: unspecified laterality Qualified Codes: C34.90 - Malignant neoplasm of unspecified part of unspecified bronchus or lung Clinical Quality Measures DVT/VTE Risk/Contraindication: Risk Factor Score Per Nursin RFS Level Per Nursing on Admit: 4+=Very High NOEL MENDOZA MD Jan 19, 2019 11:52 POS
--- NOTE | 2019-01-19 12:42 | Occ Therapy Progress Note ---
Therapy Progress Note Pt. discharged to ICU due to change in medical status. Will need new orders to re-evaluate pt. [id number] LINNEA MICHAEL OT Jan 19, 2019 12:41 POS
[2019-01-19] MEDS ORDERED: AMIODARONE FOR BOLUS 150 MG in D5W 100 ML IVPB 100 ML IV NR (13:00)
[2019-01-19] MEDS: ENOXAPARIN 80 MG/0.8 ML (LOVENOX) SYR SC SCH ×2 (13:11→20:46)
[2019-01-19] MEDS: AMIODARONE INJECTION 450 MG in D5W IV SOLUTION (EXCEL) 250 ML IV SCH ×2 (13:26→20:51)
[2019-01-19] MEDS ORDERED: ADENOSINE 6 MG/2 ML (ADENOCARD) VIAL IV ONE ×2 (15:18→15:45)
--- NOTE | 2019-01-19 15:52 | Cardioversion ---
Cardioversion PROCEDURE PHYSICIAN: Milly Lam DATE OF PROCEDURE: 01/19/19 Procedure name: Chemical cardioversion Procedure Details: The patient was given adenosine 6 mg while she was in narrow complex tachycardia showed transient episode of bradycardia and underlying atrial flutter. Conclusions: Successful Adenosine injection showing underlying rhythm to be atrial flutter MILLY LAM MD Jan 19, 2019 15:52 POS
[2019-01-19] MEDS ORDERED: DIGOXIN 0.25 MG/ML (LANOXIN) 2 ML AMP IV NR (16:00)
[2019-01-19] MEDS: TIMOLOL MALEATE 0.5% 5 ML (TIMOPTIC) BTL OU SCH (20:45)
[2019-01-19] MEDS: SIMvastatin 10 MG (ZOCOR) TAB PO SCH (20:46)
[2019-01-19] MEDS: MONTELUKAST 10 MG (SINGULAIR) TAB PO SCH (20:46)
[2019-01-20] VITALS (22 sets, daily range): BP systolic 89–134; BP diastolic 50–91
[2019-01-20] MEDS: RT-ALBUTEROL/IPRATROPIUM 3 ML (DUONEB) VIAL INH SCH ×6 (01:41→22:25)
[2019-01-20 03:27] LABS: BASOPHILS % (AUTO) 0 % (0-10); EOSINOPHILS % (AUTO) 0 % (0-10); HEMATOCRIT 36 % (35-52); HEMOGLOBIN 10.5 G/DL (11.5-16.0); LYMPHOCYTES # (AUTO) 0.8 X 10^3 (1.0-4.0); LYMPHOCYTES % (AUTO) 14 % (12-44); MEAN CORPUSCULAR HEMOGLOBIN 29 PG (25-34); MEAN CORPUSCULAR HGB CONC 29 G/DL (32-36); MEAN CORPUSCULAR VOLUME 99 FL (80-99); MEAN PLATELET VOLUME 10.1 FL (7.4-10.4); MONOCYTES # (AUTO) 0.7 X 10^3 (0.0-1.0); MONOCYTES % (AUTO) 12 % (0-12); NEUTROPHILS # (AUTO) 4.3 X 10^3 (1.8-7.8); NEUTROPHILS % (AUTO) 73 % (42-75); PLATELET COUNT 179 10^3/uL (130-400); RED CELL DISTRIBUTION WIDTH 12.8 % (10.0-14.5); WHITE BLOOD COUNT 5.9 10^3/uL (4.3-11.0)
--- NOTE | 2019-01-20 04:09 | Pulmonary Progress Note ---
VERN NOLASCO MED STUDENT 01/20/19 0409: Subjective Date Seen by a Provider: Jan 20, 2019 Time Seen by a Provider: 04:05 Subjective/Events-last exam Patient reports that she is feeling well but slightly more short of breath than usual. She does have a cough that is minimally productive of green sputum. She denies any chest pain, fever, and chills. Sepsis Event Evaluation Height, Weight, BMI Height: 4'10.00" Weight: 124lbs. 0.0oz. 56.646743ox; 28.48 BMI Method: Exam Exam Vital Signs Date Time Temp Pulse Resp B/P (MAP) Pulse Ox O2 Delivery O2 Flow Rate FiO2 01/20/19 03:35 36.9 Nasal Cannula 4.00 01/20/19 03:35 96 Nasal Cannula 4.00 01/20/19 03:00 67 122/62 (82) 96 Nasal Cannula 4.00 01/20/19 02:00 64 20 118/54 (75) 98 Nasal Cannula 4.00 01/20/19 01:39 98 Nasal Cannula 4.00 01/20/19 01:29 79 25 90 Nasal Cannula 4.00 01/20/19 01:00 77 01/20/19 01:00 77 123/64 (83) 97 Nasal Cannula 3.00 01/20/19 00:00 71 30 118/66 (83) 96 Nasal Cannula 3.00 01/19/19 23:40 36.5 98 Nasal Cannula 3.00 01/19/19 23:30 97 Nasal Cannula 3.00 01/19/19 23:00 78 138/63 (88) 97 Nasal Cannula 4.00 01/19/19 22:03 50 28 115/55 (75) 96 Nasal Cannula 4.00 01/19/19 21:15 96 Nasal Cannula 4.00 01/19/19 21:00 126 22 90/58 (69) 96 Nasal Cannula 4.00 01/19/19 20:00 138 11 102/67 (79) 97 Nasal Cannula 4.00 01/19/19 19:49 126 22 86/63 (71) 96 Nasal Cannula 4.00 01/19/19 19:46 98 Nasal Cannula 4.00 01/19/19 19:30 115 33 88/73 (78) 96 Nasal Cannula 4.00 01/19/19 19:15 124 26 97 Nasal Cannula 4.00 01/19/19 19:10 36.8 Nasal Cannula 4.00 01/19/19 19:00 97 23 93/79 (84) 97 Nasal Cannula 4.00 01/19/19 19:00 97 01/19/19 18:08 Nasal Cannula 01/19/19 18:02 98 Nasal Cannula 4.00 01/19/19 18:00 110 34 81/64 (70) 97 Nasal Cannula 4.00 01/19/19 17:00 140 19 128/85 (99) 95 Nasal Cannula 4.00 01/19/19 16:00 97 High Flow N/C 6.00 01/19/19 16:00 142 21 99/76 (84) 97 Nasal Cannula 4.00 01/19/19 16:00 36.4 01/19/19 15:00 147 21 112/77 (89) 96 Nasal Cannula 4.00 01/19/19 14:00 147 24 104/68 (80) 97 Nasal Cannula 4.00 01/19/19 13:00 154 10 108/71 (83) 95 Nasal Cannula 4.00 01/19/19 13:00 153 01/19/19 12:00 138 40 104/85 (91) 94 Nasal Cannula 4.00 01/19/19 12:00 99 High Flow N/C 6.00 01/19/19 11:00 149 24 96/84 (88) 98 Nasal Cannula 4.00 01/19/19 10:45 99 High Flow N/C 6.00 01/19/19 10:37 37.3 01/19/19 10:30 139 113/82 01/19/19 10:30 146 32 114/72 (86) 98 Nasal Cannula 4.00 01/19/19 10:23 Nasal Cannula 4.00 01/19/19 10:18 Nasal Cannula 4.00 01/19/19 10:07 93 Nasal Cannula 4.00 01/19/19 08:00 36.8 128 20 101/71 (81) 95 Nasal Cannula 4.00 01/19/19 08:00 Nasal Cannula 3.00 01/19/19 07:00 140 01/19/19 06:29 96 Nasal Cannula 4.00 I & O 01/20/19 07:00 Intake Total 1787 ml Output Total 1250 ml Balance 537 ml Height & Weight Height: 4'10.00" Weight: 124lbs. 0.0oz. 56.120007wq; 28.48 BMI Method: General Appearance: No Apparent Distress, WD/WN HEENT: PERRL/EOMI, Pharynx Normal, Other (hearing difficulty) Neck: Normal Inspection, Supple Respiratory: No Accessory Muscle Use, No Respiratory Distress, Wheezing (Diffuse bilateral wheezes ) Cardiovascular: No Murmur, Irregularly Irregular Capillary Refill: Less Than 3 Seconds Gastrointestinal: normal bowel sounds Extremity: Normal Inspection, Non Tender, No Pedal Edema Neurologic/Psychiatric: Alert, Oriented x3 Skin: Normal Color, Warm/Dry Lymphatic: No Adenopathy Results Lab Laboratory Tests 01/18/19 04:45 01/19/19 04:45 01/20/19 03:24 Assessment/Plan Assessment/Plan COPDAE -On 3L O2 at home -Prednisone 40mg daily -Duoneb RT Q4 and PRN Q2 -Advair -Singulair CHFAE with pulmonary edema and small right pleural effusion -Currently on Lasix 40mg daily -pending repeat chest Xray -Cardiology following Afib with RVR -Cardiology following -Cardizem drip -Amiodarone NSTEMI type II Hyperkalemia -resolved NICOLÁS BAZZI DO 01/20/19 0620: Subjective Time Seen by a Provider: 06:16 Subjective/Events-last exam Pt still on Cardizem gtt. Exam Exam General Appearance: No Apparent Distress, WD/WN HEENT: PERRL/EOMI Neck: Normal Inspection, Supple Respiratory: No Accessory Muscle Use, No Respiratory Distress, Wheezing (Diffuse bilateral wheezes ) Cardiovascular: No Murmur Gastrointestinal: normal bowel sounds Extremity: Normal Inspection, Non Tender, No Pedal Edema Neurologic/Psychiatric: Alert Skin: Normal Color, Warm/Dry Lymphatic: No Adenopathy Assessment/Plan Assessment/Plan COPDAE -On 3L O2 at home -Prednisone 40mg daily -Duoneb RT Q4 and PRN Q2 -Advair -Singulair CHFAE with pulmonary edema and small right pleural effusion -Currently on Lasix 40mg daily Afib with RVR -Cardiology following -Cardizem drip -Amiodarone NSTEMI type II Hyperkalemia -resolved VERN NOLASCO STUDENT Jan 20, 2019 04:09 NICOLÁS DALEY DO Jan 20, 2019 06:20 POS
[2019-01-20 04:11] LABS: BUN/CREATININE RATIO 33; CALCIUM 9.2 MG/DL (8.5-10.1); CARBON DIOXIDE 43 MMOL/L (21-32); CHLORIDE 88 MMOL/L (98-107); CREATININE SERUM 0.87 MG/DL (0.60-1.30); GFR ESTIMATED > 60; GLUCOSE 105 MG/DL (70-105); MAGNESIUM 1.6 MG/DL (1.6-2.4); PHOSPHORUS 3.5 MG/DL (2.3-4.7); POTASSIUM 3.4 MMOL/L (3.6-5.0); SODIUM 142 MMOL/L (135-145)
[2019-01-20] MEDS: KCL 20 MEQ TAB (K-DUR) PO SCH (04:14)
[2019-01-20] MEDS: POTASSIUM CL 10MEQ/50ML IVPB 50 ML IV SCH ×6 (04:15→10:30)
[2019-01-20] MEDS: MAGNESIUM 1 GM/100 ML IVPB 100 ML IV SCH ×3 (04:15→04:41)
[2019-01-20] MEDS: CATHETER FLUSH 10 ML SYR IV SCH ×3 (04:41→21:07)
--- NOTE | 2019-01-20 06:35 | Cardiology Progress Note ---
Subjective Date Seen by Provider: Jan 20, 2019 Time Seen by Provider: 06:34 Subjective/Events-last exam Patient is laying down in bed, feeling better, having some shortness of breath and cough. No chest pain. Heart rate is better controlled Review of Systems General: No Chills, No Night Sweats; Fatigue; No Malaise, No Appetite, No Other HEENT: No Head Aches, No Visual Changes, No Eye Pain, No Ear Pain, No Dysphasia, No Sinus Congestion, No Post Nasal Drip, No Sore Throat, No Other Pulmonary: Dyspnea, Cough; No Pleuritic Chest Pain, No Other Cardiovascular: No: Chest Pain, Palpitations, Orthopnea, Paroxysmal Noc. Dys pnea, Edema, Lt Headedness, Other Objective-Cardiology Exam Last Set of Vital Signs Vital Signs 01/18/19 01/20/19 01/20/19 03:32 05:00 06:19 Pulse 66 Resp 23 B/P (MAP) 105/59 (74) Pulse Ox 96 O2 Delivery Nasal Cannula O2 Flow Rate 3.00 FiO2 36 Capillary Refill : Less Than 3 SecondsLess Than 3 Seconds I&O Intake and Output 01/20/19 00:00 Intake Total 1837 ml Output Total 1400 ml Balance 437 ml Intake Oral 1475 ml IV Total 362 ml Output Urine Total 1400 ml # Bowel Movements 2 General: Alert, Oriented X3, Cooperative, Moderate Distress HEENT: Atraumatic, PERRLA Neck: Supple, No JVD, No Thyromegaly Lungs: Normal Air Movement, Other (bilateral wheezing, rhonchi) Heart: Normal S1, Normal S2, Gallops, Other (Systolic murmur at the left sternal border, atrial flutter, controlled.) Abdomen: Normal Bowel Sounds, Soft, No Tenderness, No Hepatosplenomegaly, No Masses Extremities: No Clubbing, No Cyanosis, Normal Pulses, No Tenderness/Swelling, Other (Mild edema) Skin: No Rashes, No Breakdown, No Significant Lesion Neuro: Normal Gait, Normal Speech, Strength at 5/5 X4 Ext, Normal Tone, Sensation Intact Psych/Mental Status: Mental Status NL, Mood NL Results Lab Laboratory Tests 01/20/19 03:24 A/P-Cardiology Admission Diagnosis Shortness of breath Type II myocardial infarction Severe mitral regurgitation Coronary artery disease Assessment/Plan Shortness of breath, acute exacerbation of COPD, with an element of congestive heart failure, improving, still have significant wheezing, continue with diuretics and bronchodilators. Paroxysmal atrial fibrillation, better heart rate control on Cardizem and amiodarone drip, planning for BARBIE and cardioversion today Severe mitral regurgitation noted on 2-D Echo with dilated left atrium, planning to proceed with BARBIE and possible cardioversion Type II myocardial infarction, slight elevation in troponin level probably due to respiratory failure and coronary artery disease. Coronary artery disease, history of CABG 3 done in 1986, clinically stable. No recent workup, did not follow-up with a insurance salesman. Continue to monitor Hypertension, controlled, continue to monitor blood pressure Questionable hyperlipidemia, monitor lipids. Clinical Quality Measures DVT/VTE Risk/Contraindication: Risk Factor Score Per Nursin RFS Level Per Nursing on Admit: 4+=Very High MILLY SEE MD Jan 20, 2019 06:35 POS
--- NOTE | 2019-01-20 06:36 | Cardiac Procedure Note-CS/ASA ---
Pre-Procedure Note Pre-Op Procedure Note H&P Reviewed The H&P was reviewed, patient examined and no changes noted. Date H&P Reviewed: Jan 20, 2019 Time H&P Reviewed: 06:36 Conscious Sedation Pre-Proced Time 06:36 ASA Score 3 For ASA 3 and 4: Consider anesthesia and medical clearance. Also, for patients with a history of failed moderate sedation consider anesthesia. Airway Lungs Heart ASA score ASA 1: a normal healthy patient ASA 2: a patient with a mild systemic disease (mid diabetes, controlled hypertension, obesity x ASA 3: a patient with a severe systemic disease that limits activity (angina, COPD, prior Myocardial infarction) ASA 4: a patient with an incapacitating disease that is a constant threat to life (CHF, renal failure) ASA 5: a moribund patient not expected to survive 24 hrs. (ruptured aneurysm) ASA 6: a declared brain- patient whose organs are being harvested. For emergent operations, add the letter E after the classification Mallampati Classification Grade 3 Sedation Plan Analgesia, Amnesia, Plan communicated to team members, Discussed options with patient/fam, Discussed risks with patient/fam The patient is an appropriate candidate to undergo the planned procedure, sedation, and anesthesia. The patient immediately re-assessed prior to indication. MILLY SEE MD Jan 20, 2019 06:36 POS
[2019-01-20] MEDS ORDERED: NS IV 500 ML 500 ML ONE (07:31)
[2019-01-20] MEDS ORDERED: LIDOCAINE 2% VISCOUS 15 ML UDC PO ONE ×2 (07:45→08:00)
[2019-01-20] MEDS ORDERED: LIDOCAINE 2% VISCOUS 15 ML UDC ONE (07:55)
[2019-01-20] MEDS ORDERED: MIDAZOLAM 5 MG/5 ML (VERSED) VIAL ONE (08:02)
[2019-01-20] MEDS ORDERED: fentaNYL INJECTION 100 MCG/2 ML AMP ONE (08:02)
--- NOTE | 2019-01-20 08:02 | Progress Note - Hospitalist ---
Subjective HPI/CC On Admission Date Seen by Provider: Jan 20, 2019 Time Seen by Provider: 08:00 shortness of breath Subjective/Events-last exam Pt repors feeling better. Breathing is better and able to get some mucus out. Objective Exam Vital Signs Vital Signs Date Time Temp Pulse Resp B/P (MAP) Pulse Ox O2 Delivery O2 Flow Rate FiO2 01/20/19 06:19 96 Nasal Cannula 3.00 01/20/19 06:00 64 16 111/57 (75) 01/20/19 03:35 36.9 01/18/19 03:32 36 Capillary Refill : Less Than 3 SecondsLess Than 3 Seconds General Appearance: No Apparent Distress, Chronically ill Respiratory: No Accessory Muscle Use, No Respiratory Distress, Rhonci, Other (on oxygen) Cardiovascular: No Murmur, Irregularly Irregular Gastrointestinal: Normal Bowel Sounds, Non Tender, Soft Neurologic/Psychiatric: Alert, Oriented x3 Results/Procedures Lab Laboratory Tests 01/20/19 03:24 Patient resulted labs reviewed. Imaging: Reviewed Imaging Report Assessment/Plan Assessment and Plan Assess & Plan/Chief Complaint Atrial Fibrillation with RVR Acute on chronic heart failure with preserved ejection fraction NSTEMI, type II CAD s/p CABG 1986 - Currently on Cardizem gtt and Amiodarone gtt- rate improved and BP improved - Cardiology consulted, appreciate recs -TTE revealed grade 2 diastolic dysfunction, severe MR - Plan for BARBIE today Acute exacerbation of COPD Chronic hypoxemic respiratory failure -Continue Prednisone -MAT protocol -Continue Lasix -Pulmonology following NSCLC -Not currently on chemotherapy -Follows with Dr. Patricia DVT Prophylaxis: Lovenox therapeutic dosing now due to a-fib Diagnosis/Problems Diagnosis/Problems (1) Atrial fibrillation with RVR Status: Acute (2) CAD (coronary artery disease) Status: Chronic (3) Acute on chronic heart failure with preserved ejection fraction (HFpEF) Status: Acute (4) NSTEMI (non-ST elevation myocardial infarction) Status: Acute (5) COPD with acute exacerbation Status: Acute (6) Chronic hypoxemic respiratory failure Status: Chronic (7) Elevated troponin Status: Acute (8) Non-small cell lung cancer Status: Chronic Qualifiers: Laterality: unspecified laterality Qualified Codes: C34.90 - Malignant neoplasm of unspecified part of unspecified bronchus or lung Clinical Quality Measures DVT/VTE Risk/Contraindication: Risk Factor Score Per Nursin RFS Level Per Nursing on Admit: 4+=Very High NOEL MENDOZA MD Jan 20, 2019 08:02 POS
--- NOTE | 2019-01-20 08:07 | Diagnostic Imaging Report ---
INDICATION: Dyspnea. COMPARISON: 01/16/2019. FINDINGS: Catheter via the right subclavian with tip at the lower SVC. Sternal wires are midline. Pulmonary edema and pleural fluid have decreased, cardiomegaly and vascular congestion also improved. IMPRESSION: Improvements in failure pattern or sequelae of hypervolemia, no adverse interval development. Dictated by: Dictated on workstation # [id number]
[2019-01-20] MEDS ORDERED: proPOfol 200 MG/20 ML (DIPRIVAN) VIAL IV ONE (08:13)
[2019-01-20] MEDS: DILTIAZEM IV FOR DRIP 125 MG in NS (IVPB) 100 ML IV SCH (08:39)
--- NOTE | 2019-01-20 09:22 | Anesthesia-General Post-Op ---
MAC Patient Condition Mental Status/LOC: Same as Preop Cardiovascular: Satisfactory Nausea/Vomiting: Absent Respiratory: Satisfactory Pain: Controlled Complications: Absent Post Op Complications Complications None Follow Up Care/Instructions Patient Instructions None needed. Anesthesiology Discharge Order Discharge Order Patient is doing well, no complaints, stable vital signs, no apparent adverse anesthesia problems. No complications reported per nursing. SHERRON PEREZ CRNA Jan 20, 2019 09:22 POS
[2019-01-20] MEDS: predniSONE 20 MG TAB PO SCH (09:46)
[2019-01-20] MEDS: GABAPENTIN 300 MG (NEURONTIN) CAP PO SCH ×2 (09:46→19:41)
[2019-01-20] MEDS: ISOSORBIDE MONONITRATE 30 MG (IMDUR) TAB PO SCH (09:46)
[2019-01-20] MEDS: FUROSEMIDE 40 MG/4 ML INJ (LASIX) IVP SCH ×2 (09:46→16:30)
[2019-01-20] MEDS: NYSTATIN ORAL SUSP 5 ML UDC PO SCH ×2 (09:46→19:42)
[2019-01-20] MEDS: ASPIRIN E.C. 81 MG (ECOTRIN) TAB PO SCH (09:46)
[2019-01-20] MEDS: DOCUSATE SODIUM 100 MG (COLACE) CAP PO SCH ×2 (09:46→19:42)
[2019-01-20] MEDS: LORATADINE (CLARITIN) 10 MG TAB PO SCH (09:46)
[2019-01-20] MEDS: RT-ADVAIR HFA 115/21 MCG PER PUFF IH SCH ×2 (10:02→19:08)
[2019-01-20] MEDS: ENOXAPARIN 80 MG/0.8 ML (LOVENOX) SYR SC SCH ×2 (10:20→21:05)
--- NOTE | 2019-01-20 10:29 | Physical Therapy Progress Note ---
Therapy Progress Note Patient transferred to ICU 01/19/19. PT will require new orders when patient deemed medically stable. RN notified. YOU GRIGSBY PT Jan 20, 2019 10:29 POS
[2019-01-20] MEDS ORDERED: NS (IVPB) 250 ML ONE (10:32)
[2019-01-20] MEDS: AMIODARONE 200 MG (CORDARONE) TAB PO SCH ×2 (13:42→19:41)
--- NOTE | 2019-01-20 15:44 | Physical Therapy Evaluation ---
PT Evaluation-General Medical Diagnosis Admission Date Jan 15, 2019 at 16:00 Medical Diagnosis: pneumonia/hypoxia Onset Date: Jan 20, 2019 Therapy Diagnosis Therapy Diagnosis: weakness Height/Weight Height (Feet): 4 Height (Inches): 10.00 Weight (Pounds): 124 Weight (Ounces): 0.0 Precautions Precautions/Isolations: Standard Precautions Weight Bear Status Right Lower Extremity: Right Weight Bearing/Tolerated Left Lower Extremity: Left Weight Bearing/Tolerated Referral Physician: Alycia Reason for Referral: Evaluation/Treatment Medical History Pertinent Medical History: CABG, COPD Current History Patient transferred to ICU 01/19/19 secondary to A-fib Reviewed History: Yes Social History Home: Single Level Current Living Status: Alone Entry Into Home: Stairs With Railing PT Steps Into Home: 2 Prior Prior Level of Function SCALE: Activities may be completed with or without assistive devices. 5-Fcuxwnqefd-cqoniau completes the activity by him/herself with no assistance from a helper. 5-Set-up or Clean-up Assistance-helper sets up or cleans up; patient completes activity. [place] assists only prior to or following the activity. 4-Supervision or Touching Assistance-helper provides verbal cues and/or touching/steadying and/or contact guard assistance as patient completes activity. Assistance may be provided throughout the activity or intermittently. 3-Partial/Moderate Assistance-helper does LESS THAN HALF the effort. [place] lifts, holds or supports trunk or limbs, but provides less than half the effort. 2-Substantial/Maximal Assistance-helper does MORE THAN HALF the effort. [place] lifts or holds trunk or limbs and provides more than half the effort. 9-Tpfzxgmlx-zxwdkc does ALL the effort. Patient does none of the effort to complete the activity. Or, the assistance of 2 or more helpers is required for the patient to complete the activity. If activity was not attempted, code reason: 7-Patient Refused. 9-Not Applicable-not attempted and the patient did not perform the activity before the current illness, exacerbation or injury. 10-Not Attempted due to Environmental Limitations-(lack of equipment, weather restraints, etc.). 88-Not Attempted due to Medical Conditions or Safety Concerns. Bed Mobility: 6 Transfers (B,C,W/C): 6 Gait: 6 Stairs: 6 Indoor Mobility (Ambulation): Independent Stairs: Independent Prior Devices Use: None PT Evaluation-Current Subjective Patient agrees to PT. Patient connected to telemetry so cannot ambulate today. Reports feeling good and some pain in L calf. Pain Numeric Pain Scale: 3 Location: Left Location Body Site: Calf Pain Description: Ache Objective Patient Orientation: Normal For Age Attachments: SCD's, Oxygen, IV ROM/Strength ROM Lower Extremities WFL Strength Lower Extremities Grossly 4/5 Integumentary/Posture Integumentary See nursing notes Bowel Incontinence: No Bladder Incontinence: No Posture WFL Neuromuscular (Tone, Coordination, Reflexes) Grossly intact Sensory Vision: Functional Hearing: Impaired Hand Dominance: Right Sensation Right Lower Extremit: Intact Sensation Left Lower Extremity: Intact Transfers Roll Left to Right (QC): 6 Sit to Lying (QC): 6 Lying to Sitting/Side of Bed(Q: 6 Sit to Stand (QC): 6 Chair/Rfv-zi-Ugiwv Xfer(QC): 6 Car Transfer (QC): 6 Gait Does the Patient Walk?: Yes Mode of Locomotion: Walk Anticipated Mode of Locomotion: Walk Walk 10 feet (QC): 6 Walk 50 ft with 2 Turns(QC): 88 Walk 150 ft (QC): 88 Walking 10ft/uneven surface-QC: 88 Gait Assistive Device: FWW Wheelchair Training Does the Pt Use a Wheelchair?: No Wheel 50 ft with 2 turns (QC): 9 Wheel 150 ft (QC): 9 Type of Wheelchair: Manual Stairs 1 Step (curb) (QC): 88 4 Steps (QC): 88 12 Steps (QC): 88 Balance Sitting Static: Normal Sitting Dynamic: Normal Standing Static: Fair Standing Dynamic: Fair Picking up an Object (QC): 88 Treatment Standing EX: marches, calf raises x10 Assessment/Needs Patient supine in bed prior to treatment. Patient able to perform all bed mobility, standing, and transfer to chair independently and with minimal use of FWW as well. While standing, patient performed marches and calf raises in place d/t restriction of ambulation with telemetry attachment. Patient seated in chair at conclusion of treatment. Rehab Potential: Fair PT Senior Software Development Engineer Goals Senior Software Development Engineer Goals PT Retirement Goals Time Frame: Jan 30, 2019 Roll Left & Right (QC): 6 Sit to Lying (QC): 6 Lying-Sitting on Side/Bed(QC): 6 Sit to Stand (QC): 6 Chair/Ytj-ke-Nlnha Xfer(QC): 6 Toilet Transfer (QC): 6 Car Transfer (QC): 6 Does the Patient Walk: Yes Walk 10 feet (QC): 6 Walk 50ft with 2 Turns (QC): 6 Walk 150 ft (QC): 6 Walking 10ft on Uneven Surface: 6 1 Step (curb) (QC): 6 4 Steps (QC): 6 12 Steps (QC): 9 Picking up an Object (QC): 6 Does the Pt use WC or Scooter?: No Type: N/A Type: N/A PT Plan Problem List Problem List: Activity Tolerance, Functional Strength, Safety, Balance, Gait, Transfer, Bed Mobility Treatment/Plan Treatment Plan: Continue Plan of Care Treatment Plan: Education, Functional Activity Michael, Functional Strength, Gait, Safety, Therapeutic Exercise, Transfers, Other Treatment Duration: Jan 30, 2019 Frequency: 6 times per week Estimated Hrs Per Day: .25 hour per day Patient and/or Family Agrees t: Yes Time/GCodes Time In: 1527 Time Out: 1535 Total Billed Treatment Time: 8 Total Billed Treatment 1 visit EVLowC 8min YOU GRIGSBY PT Jan 20, 2019 15:44 POS
[2019-01-20] MEDS: SIMvastatin 10 MG (ZOCOR) TAB PO SCH (19:41)
[2019-01-20] MEDS: TIMOLOL MALEATE 0.5% 5 ML (TIMOPTIC) BTL OU SCH (19:41)
[2019-01-20] MEDS: MONTELUKAST 10 MG (SINGULAIR) TAB PO SCH (19:41)
[2019-01-21] VITALS (22 sets, daily range): BP systolic 97–148; BP diastolic 49–145
[2019-01-21] MEDS: RT-ALBUTEROL/IPRATROPIUM 3 ML (DUONEB) VIAL INH SCH ×6 (02:27→22:24)
[2019-01-21 03:06] LABS: BASOPHILS % (AUTO) 0 % (0-10); EOSINOPHILS % (AUTO) 0 % (0-10); HEMATOCRIT 36 % (35-52); HEMOGLOBIN 10.6 G/DL (11.5-16.0); LYMPHOCYTES # (AUTO) 0.7 X 10^3 (1.0-4.0); LYMPHOCYTES % (AUTO) 9 % (12-44); MEAN CORPUSCULAR HEMOGLOBIN 29 PG (25-34); MEAN CORPUSCULAR HGB CONC 29 G/DL (32-36); MEAN CORPUSCULAR VOLUME 98 FL (80-99); MEAN PLATELET VOLUME 10.1 FL (7.4-10.4); MONOCYTES # (AUTO) 0.5 X 10^3 (0.0-1.0); MONOCYTES % (AUTO) 7 % (0-12); NEUTROPHILS # (AUTO) 5.7 X 10^3 (1.8-7.8); NEUTROPHILS % (AUTO) 83 % (42-75); PLATELET COUNT 213 10^3/uL (130-400); RED CELL DISTRIBUTION WIDTH 12.9 % (10.0-14.5); WHITE BLOOD COUNT 6.9 10^3/uL (4.3-11.0)
[2019-01-21 03:27] LABS: BUN/CREATININE RATIO 34; CALCIUM 9.1 MG/DL (8.5-10.1); CARBON DIOXIDE 40 MMOL/L (21-32); CHLORIDE 94 MMOL/L (98-107); CREATININE SERUM 0.88 MG/DL (0.60-1.30); GFR ESTIMATED > 60; GLUCOSE 136 MG/DL (70-105); MAGNESIUM 2.1 MG/DL (1.6-2.4); PHOSPHORUS 3.3 MG/DL (2.3-4.7); POTASSIUM 4.2 MMOL/L (3.6-5.0); SODIUM 143 MMOL/L (135-145)
[2019-01-21] MEDS: CATHETER FLUSH 10 ML SYR IV SCH ×3 (03:35→22:07)
[2019-01-21] MEDS: MAGNESIUM 1 GM/100 ML IVPB 100 ML IV SCH (03:36)
[2019-01-21] MEDS: POTASSIUM CL 10MEQ/50ML IVPB 50 ML IV SCH (03:36)
[2019-01-21] MEDS: KCL 20 MEQ TAB (K-DUR) PO SCH (03:36)
--- NOTE | 2019-01-21 06:03 | Pulmonary Progress Note ---
Subjective Time Seen by a Provider: 09:56 Subjective/Events-last exam PT was found to have a cardiac thrombus so cardioversion was not done. Sepsis Event Evaluation Height, Weight, BMI Height: 4'10.00" Weight: 124lbs. 0.0oz. 56.322238dd; 28.48 BMI Method: Exam Exam Vital Signs Date Time Temp Pulse Resp B/P (MAP) Pulse Ox O2 Delivery O2 Flow Rate FiO2 01/21/19 05:00 79 21 133/67 (89) 95 Nasal Cannula 2.00 01/21/19 04:00 58 15 118/71 (87) 92 Nasal Cannula 2.00 01/21/19 03:15 95 Nasal Cannula 3.00 01/21/19 03:15 36.8 01/21/19 03:09 67 19 148/75 (99) 91 Nasal Cannula 2.00 01/21/19 02:27 92 Nasal Cannula 2.00 01/21/19 02:00 78 24 128/78 (95) 93 Nasal Cannula 2.00 01/21/19 01:00 72 24 125/66 (85) 90 Nasal Cannula 2.00 01/21/19 00:58 70 01/21/19 00:00 36.6 64 18 124/85 (98) 94 Nasal Cannula 2.00 01/21/19 00:00 95 Nasal Cannula 3.00 01/20/19 23:00 63 22 118/71 (87) 93 Nasal Cannula 2.00 01/20/19 22:25 94 Nasal Cannula 2.00 01/20/19 22:00 68 23 134/62 (86) 93 Nasal Cannula 2.00 01/20/19 21:00 75 21 127/67 (87) 97 Nasal Cannula 2.00 01/20/19 20:00 36.8 01/20/19 20:00 99 27 92/71 (78) 97 Nasal Cannula 2.00 01/20/19 20:00 95 Nasal Cannula 3.00 01/20/19 19:14 Nasal Cannula 2.00 01/20/19 19:08 Nasal Cannula 01/20/19 19:08 99 Nasal Cannula 2.00 01/20/19 19:00 87 01/20/19 18:00 86 28 124/54 (77) 90 Nasal Cannula 3.00 01/20/19 17:00 64 15 121/80 (94) 98 Nasal Cannula 3.00 01/20/19 16:25 Nasal Cannula 3.00 01/20/19 16:23 95 Nasal Cannula 3.00 01/20/19 16:05 37.2 01/20/19 16:00 85 29 89/66 (74) 100 Nasal Cannula 4.00 01/20/19 15:00 77 23 95/53 (67) 100 Nasal Cannula 4.00 01/20/19 14:43 96 Nasal Cannula 3.00 01/20/19 14:00 82 25 122/85 (97) 97 Nasal Cannula 4.00 01/20/19 13:00 91 01/20/19 13:00 61 23 122/66 (84) 98 Nasal Cannula 4.00 01/20/19 12:53 95 Nasal Cannula 3.00 01/20/19 12:00 77 107/51 (69) 99 Nasal Cannula 4.00 01/20/19 11:43 36.8 01/20/19 11:00 89 22 107/80 (89) 98 Nasal Cannula 4.00 01/20/19 10:03 Nasal Cannula 01/20/19 10:03 95 Nasal Cannula 3.00 01/20/19 10:00 72 48 106/91 (96) 93 Nasal Cannula 4.00 01/20/19 09:25 01/20/19 09:11 36.9 82 93 32 01/20/19 09:00 88 14 95/50 (65) 93 Nasal Cannula 4.00 01/20/19 08:39 36.40521 62 16 111/57 96 Nasal Cannula 3.00 01/20/19 08:00 82 42 97 Nasal Cannula 4.00 01/20/19 07:55 95 Nasal Cannula 3.00 01/20/19 07:00 62 97 Nasal Cannula 4.00 01/20/19 07:00 62 01/20/19 06:19 96 Nasal Cannula 3.00 I & O 01/21/19 07:00 Intake Total 1170 ml Output Total 1550 ml Balance -380 ml Height & Weight Height: 4'10.00" Weight: 124lbs. 0.0oz. 56.773639ti; 28.48 BMI Method: General Appearance: No Apparent Distress, Chronically ill HEENT: PERRL/EOMI Neck: Normal Inspection, Supple Respiratory: No Accessory Muscle Use, No Respiratory Distress, Rhonci, Other (on oxygen) Cardiovascular: No Murmur, Irregularly Irregular Capillary Refill: Less Than 3 Seconds Gastrointestinal: normal bowel sounds Extremity: Normal Inspection, Non Tender, No Pedal Edema Neurologic/Psychiatric: Alert, Oriented x3 Skin: Normal Color, Warm/Dry Lymphatic: No Adenopathy Results Lab Laboratory Tests 01/20/19 03:24 01/21/19 03:00 Assessment/Plan Assessment/Plan COPDAE -On 3L O2 at home -Prednisone 40mg daily -Duoneb RT Q4 and PRN Q2 -Advair -Singulair CHFAE with pulmonary edema and small right pleural effusion -Lasix 40mg daily Afib with RVR -S/p BARBIE shows intracardiac thrombus -Lovenox -Cardiology following -Cardizem drip NSTEMI type II Hyperkalemia -resolved NICOLÁS BAZZI DO Jan 21, 2019 06:03 POS
[2019-01-21] MEDS: FUROSEMIDE 40 MG/4 ML INJ (LASIX) IVP SCH ×2 (06:28→16:46)
[2019-01-21] MEDS: RT-ADVAIR HFA 115/21 MCG PER PUFF IH SCH ×2 (06:38→19:19)
--- NOTE | 2019-01-21 07:35 | Diagnostic Imaging Report ---
INDICATION: Dyspnea. Comparison with 01/20/2019. FINDINGS: Cardiac enlargement with median sternotomy changes are again noted. Port-A-Cath on the right unchanged. There continues to be prominent pulmonary vasculature with interstitial infiltrates and small basilar pleural effusion. IMPRESSION: 1. Findings are consistent with mild chronic congestive failure. Overall appearance is not changed significantly since the previous exam. Dictated by: Dictated on workstation # [id number]
[2019-01-21] MEDS: ASPIRIN E.C. 81 MG (ECOTRIN) TAB PO SCH (09:08)
[2019-01-21] MEDS: GABAPENTIN 300 MG (NEURONTIN) CAP PO SCH ×2 (09:08→19:58)
[2019-01-21] MEDS: LORATADINE (CLARITIN) 10 MG TAB PO SCH (09:08)
[2019-01-21] MEDS: ISOSORBIDE MONONITRATE 30 MG (IMDUR) TAB PO SCH (09:08)
[2019-01-21] MEDS: NYSTATIN ORAL SUSP 5 ML UDC PO SCH ×2 (09:08→20:00)
[2019-01-21] MEDS: AMIODARONE 200 MG (CORDARONE) TAB PO SCH ×2 (09:08→20:00)
[2019-01-21] MEDS: ENOXAPARIN 80 MG/0.8 ML (LOVENOX) SYR SC SCH ×2 (09:09→21:31)
[2019-01-21] MEDS: DOCUSATE SODIUM 100 MG (COLACE) CAP PO SCH ×2 (09:10→20:00)
--- NOTE | 2019-01-21 09:30 | Progress Note - Hospitalist ---
Subjective HPI/CC On Admission Date Seen by Provider: Jan 21, 2019 Time Seen by Provider: 09:27 shortness of breath Subjective/Events-last exam Pt reports feeling better today. Reviewed notes from yesterday and was unable to have cardioversion and there is report of atrial thrombus. Per RN she is doing well and heart rate has been well controlled. Objective Exam Vital Signs Vital Signs Date Time Temp Pulse Resp B/P (MAP) Pulse Ox O2 Delivery O2 Flow Rate FiO2 01/21/19 08:36 01/21/19 08:13 96 Nasal Cannula 2.00 01/21/19 07:00 36.5 01/21/19 06:00 77 17 01/20/19 09:11 32 Capillary Refill : Less Than 3 SecondsLess Than 3 Seconds General Appearance: No Apparent Distress, WD/WN Respiratory: No Accessory Muscle Use, No Respiratory Distress, Wheezing Cardiovascular: Irregularly Irregular; No Tachycardia Gastrointestinal: Normal Bowel Sounds, Non Tender, Soft Neurologic/Psychiatric: Alert, Oriented x3 Results/Procedures Lab Laboratory Tests 01/21/19 03:00 Patient resulted labs reviewed. Imaging: Reviewed Imaging Report Assessment/Plan Assessment and Plan Assess & Plan/Chief Complaint Atrial Fibrillation with RVR Acute on chronic heart failure with preserved ejection fraction NSTEMI, type II CAD s/p CABG 1986 Severe Mitral Regurgitation - Currently on Cardizem gtt and oral Amiodarone - Cardiology consulted, appreciate recs - TTE revealed preserved EF, grade 2 diastolic dysfunction, severe MR - BARBIE done and ?thrombus so cardioversion not done Acute exacerbation of COPD Chronic hypoxemic respiratory failure -Continue Prednisone -MAT protocol -Continue Lasix -Pulmonology following -Solu-medrol added NSCLC -Not currently on chemotherapy -Follows with Dr. Patricia DVT Prophylaxis: Lovenox therapeutic dosing now due to a-fib Diagnosis/Problems Diagnosis/Problems (1) Atrial fibrillation with RVR Status: Acute (2) CAD (coronary artery disease) Status: Chronic (3) Acute on chronic heart failure with preserved ejection fraction (HFpEF) Status: Acute (4) NSTEMI (non-ST elevation myocardial infarction) Status: Acute (5) COPD with acute exacerbation Status: Acute (6) Chronic hypoxemic respiratory failure Status: Chronic (7) Elevated troponin Status: Acute (8) Non-small cell lung cancer Status: Chronic Qualifiers: Laterality: unspecified laterality Qualified Codes: C34.90 - Malignant neoplasm of unspecified part of unspecified bronchus or lung Clinical Quality Measures DVT/VTE Risk/Contraindication: Risk Factor Score Per Nursin RFS Level Per Nursing on Admit: 4+=Very High NOEL MENDOZA MD Jan 21, 2019 09:30 POS
[2019-01-21] MEDS: DILTIAZEM IV FOR DRIP 125 MG in NS (IVPB) 100 ML IV SCH (09:58)
--- NOTE | 2019-01-21 10:47 | Cardiology Progress Note ---
Subjective Date Seen by Provider: Jan 21, 2019 Time Seen by Provider: 10:45 Subjective/Events-last exam Patient is sitting in a chair, no chest pain, HR is better controlled Review of Systems General: No Chills, No Night Sweats, No Fatigue, No Malaise, No Appetite, No Other HEENT: No Head Aches, No Visual Changes, No Eye Pain, No Ear Pain, No Dysphasia, No Sinus Congestion, No Post Nasal Drip, No Sore Throat, No Other Pulmonary: No Dyspnea, No Cough, No Pleuritic Chest Pain, No Other Cardiovascular: No: Chest Pain, Palpitations, Orthopnea, Paroxysmal Noc. Dyspnea, Edema, Lt Headedness, Other Objective-Cardiology Exam Last Set of Vital Signs Vital Signs 01/20/19 01/21/19 09:11 09:58 Temp 36.48363 Pulse 84 Resp 27 B/P (MAP) 118/61 Pulse Ox 96 O2 Delivery Nasal Cannula O2 Flow Rate 2.00 FiO2 32 Capillary Refill : Less Than 3 SecondsLess Than 3 Seconds I&O Intake and Output 01/21/19 00:00 Intake Total 1320 ml Output Total 1475 ml Balance -155 ml Intake Oral 570 ml IV Total 750 ml Output Urine Total 1475 ml # Voids 2 # Bowel Movements 1 General: Alert, Oriented X3, Cooperative, Moderate Distress HEENT: Atraumatic, PERRLA Neck: Supple, No JVD, No Thyromegaly Lungs: Normal Air Movement, Other (bilateral wheezing, rhonchi) Heart: Normal S1, Normal S2, Gallops, Other (Systolic murmur at the left sternal border, atrial flutter, controlled.) Abdomen: Normal Bowel Sounds, Soft, No Tenderness, No Hepatosplenomegaly, No Masses Extremities: No Clubbing, No Cyanosis, Normal Pulses, No Tenderness/Swelling, Other (Mild edema) Skin: No Rashes, No Breakdown, No Significant Lesion Neuro: Normal Gait, Normal Speech, Strength at 5/5 X4 Ext, Normal Tone, Sensation Intact Psych/Mental Status: Mental Status NL, Mood NL Results Lab Laboratory Tests 01/21/19 03:00 A/P-Cardiology Admission Diagnosis Shortness of breath Type II myocardial infarction Severe mitral regurgitation Coronary artery disease Assessment/Plan Shortness of breath, acute exacerbation of COPD, with an element of congestive heart failure, improving, still have significant wheezing, continue with diuretics and bronchodilators. Paroxysmal atrial fibrillation, better heart rate control, I am changing Cardizem to oral, amiodarone to oral. Continue to monitor Severe mitral regurgitation noted on 2-D Echo with dilated left atrium, discus sed with the patient the management plan, she could benefit from mitral valve clip. Type II myocardial infarction, slight elevation in troponin level probably due to respiratory failure and coronary artery disease. Coronary artery disease, history of CABG 3 done in 1986, clinically stable. No recent workup, did not follow-up with a clutch mechanic. Continue to monitor Hypertension, controlled, continue to monitor blood pressure Questionable hyperlipidemia, monitor lipids. Clinical Quality Measures DVT/VTE Risk/Contraindication: Risk Factor Score Per Nursin RFS Level Per Nursing on Admit: 4+=Very High MILLY SEE MD Jan 21, 2019 10:47 POS
[2019-01-21] MEDS: DILTIAZEM 30 MG (CARDIZEM) TAB PO SCH ×2 (11:24→17:57)
[2019-01-21] MEDS: methylPREDNISolone 40 MG/ML (Solu-MEDROL) VIAL IV SCH ×2 (11:24→17:57)
--- NOTE | 2019-01-21 12:47 | Occupational Therapy Eval ---
OT Evaluation-General/PLF Medical Diagnosis Admission Date Jan 15, 2019 at 16:00 Medical Diagnosis: pneumonia/hypoxia Onset Date: Jan 20, 2019 Therapy Diagnosis Therapy Diagnosis: decreased self care skills Height/Weight Height (Feet): 4 Height (Inches): 10.00 Weight (Pounds): 124 Weight (Ounces): 0.0 Precautions Precautions/Isolations: Fall Prevention, Standard Precautions Safety Interventions: None Weight Bear Status Weight Bearing Restriction: Weight Bearing/Tolerated Referral Physician: Alycia Referral Reason: Activity Tolerance, Self Care, Evaluation/Treatment, Strengthening/ROM Medical History Pertinent Medical History: CABG, COPD Additional Medical History COPD, lung Ca with radiation and chemo therapies, CABG, angioplasty, HTN, headaches/ migraines, arthritis, glaucoma Reviewed History: Yes Social History Home: Single Level Current Living Status: Alone Entry Into Home: Stairs With Railing Steps Into Home: 2 ADL-Prior Level of Function SCALE: Activities may be completed with or without assistive devices. 2-Vvdszwknwa-jwgsnxj completes the activity by him/herself with no assistance from a helper. 5-Set-up or Clean-up Assistance-helper sets up or cleans up; patient completes activity. [place] assists only prior to or following the activity. 4-Supervision or Touching Assistance-helper provides verbal cues and/or touching/steadying and/or contact guard assistance as patient completes activity. Assistance may be provided throughout the activity or intermittently. 3-Partial/Moderate Assistance-helper does LESS THAN HALF the effort. [place] lifts, holds or supports trunk or limbs, but provides less than half the effort. 2-Substantial/Maximal Assistance-helper does MORE THAN HALF the effort. [place] lifts or holds trunk or limbs and provides more than half the effort. 9-Rhfoanrlz-svaoci does ALL the effort. Patient does none of the effort to complete the activity. Or, the assistance of 2 or more helpers is required for the patient to complete the activity. If activity was not attempted, code reason: 7-Patient Refused. 9-Not Applicable-not attempted and the patient did not perform the activity before the current illness, exacerbation or injury. 10-Not Attempted due to Environmental Limitations-(lack of equipment, weather restraints, etc.). 88-Not Attempted due to Medical Conditions or Safety Concerns. ADL PLOF Comments Pt reports being independent with self care and mobility. Uses a quad cane, but states she has a FWW if needed. Self Care: Independent Functional Cognition: Independent DME/Equipment: Bath Chair, Grab Bars, Tub/Shower Drive Self: Yes OT Current Status Subjective RN states pt okay to participate in therapy. Pt sitting in chair, agrees. Has no c/o pain. Mental Status/Objective Patient Orientation: Person, Place Attachments: IV, Oxygen, Telemetry Current Glasses/Contacts: Yes Hearing Aids: No Dentures/Partials: Yes Hand Dominance: Right Upper Extremity ROM Grossly WFL Upper Extremity Coordination Intact Upper Extremity Strength grossly4-/5 ADL-Treatment ADL-Current Pt participated in UE assessment while seated in chair. Pt requested to return to bed. Sit to stand with supervision. Pt transferred to EOB with assist to manage multiple lines. Sit to supine with SBA. Pt resting in bed with needs met, RN and sister present after session. Eating (QC): 6 Oral Hygiene (QC): 10 Shower/Bathe Self (QC): 10 Upper Body Dressing (QC): 10 Lower Body Dressing (QC): 10 On/Off Footwear (QC): 10 Toileting Hygiene (QC): 10 Toilet Transfer (QC): 10 Education OT Patient Education: Rehab process Teaching Recipient: Patient Teaching Methods: Discussion Response to Teaching: Verbalize Understanding OT Retirement Goals Retirement Goals Time Frame: Feb 06, 2019 Eating (QC): 6 Oral Hygiene (QC): 6 Toileting Hygiene (QC): 6 Shower/Bathe Self (QC): 6 Upper Body Dressing (QC): 6 Lower Body Dressing (QC): 6 On/Off Footwear (QC): 6 Additional Goals: 1-Demonstrate ADL Tasks, 2-Verbalize Understanding, 3- ImproveStrength/Michael 1=Demonstrate adherence to instructed precautions during ADL tasks. 2=Patient will verbalize/demonstrate understanding of assistive devices/modifications for ADL. 3=Patient will improve strength/tolerance for activity to enable patient to perform ADL's. OT Education/Plan Problem List/Assessment Assessment: Decreased Activ Tolerance, Decreased UE Strength, Dependent Transfers, Impaired I ADL's, Impaired Self-Care Skills Pt to benefit from skilled OT intervention for ADL training, transfers, strengthening, and home safety education to increase level of independence and allow safe discharge. Discharge Recommendations Plan/Recommendations: Continue POC Treatment Plan/Plan of Care Patient would benefit from OT for education, treatment and training to promote independence in ADL's, mobility, safety and/or upper extremity function for ADL's. Plan of Care: ADL Retraining, Functional Mobility, UE Funct Exercise/Act Treatment Duration: Jan 23, 2019 Frequency: 5 times per week Estimated Hrs Per Day: .25 hour per day Agreement: Yes Rehab Potential: Fair Time/GCodes Start Time: 10:38 Stop Time: 10:57 Total Time Billed (hr/min): 19 Billed Treatment Time 1 visit, HAILEY(19minutes) EMANUEL HERNANDEZ OT Jan 21, 2019 12:47 POS
--- NOTE | 2019-01-21 14:38 | Physical Therapy Progress Note ---
Therapy Progress Note PT deferred, Pt tired from being up this morning then having OT, now eating lunch, nursing and other staff member present. JEWELL ANDRADE MAINTAINABILITY ENGINEER Jan 21, 2019 14:38 POS
[2019-01-21] MEDS: SIMvastatin 10 MG (ZOCOR) TAB PO SCH (19:58)
[2019-01-21] MEDS: MONTELUKAST 10 MG (SINGULAIR) TAB PO SCH (19:58)
[2019-01-21] MEDS: TIMOLOL MALEATE 0.5% 5 ML (TIMOPTIC) BTL OU SCH (20:00)
[2019-01-22] VITALS (13 sets, daily range): BP systolic 110–136; BP diastolic 57–91
[2019-01-22] MEDS: DILTIAZEM 30 MG (CARDIZEM) TAB PO SCH ×4 (00:08→17:55)
[2019-01-22] MEDS: methylPREDNISolone 40 MG/ML (Solu-MEDROL) VIAL IV SCH ×4 (00:08→17:55)
[2019-01-22 02:51] LABS: BASOPHILS % (AUTO) 0 % (0-10); EOSINOPHILS % (AUTO) 0 % (0-10); HEMATOCRIT 36 % (35-52); HEMOGLOBIN 10.7 G/DL (11.5-16.0); LYMPHOCYTES # (AUTO) 0.4 X 10^3 (1.0-4.0); LYMPHOCYTES % (AUTO) 6 % (12-44); MEAN CORPUSCULAR HEMOGLOBIN 29 PG (25-34); MEAN CORPUSCULAR HGB CONC 30 G/DL (32-36); MEAN CORPUSCULAR VOLUME 97 FL (80-99); MEAN PLATELET VOLUME 10.1 FL (7.4-10.4); MONOCYTES # (AUTO) 0.1 X 10^3 (0.0-1.0); MONOCYTES % (AUTO) 2 % (0-12); NEUTROPHILS # (AUTO) 6.4 X 10^3 (1.8-7.8); NEUTROPHILS % (AUTO) 92 % (42-75); PLATELET COUNT 207 10^3/uL (130-400); WHITE BLOOD COUNT 6.9 10^3/uL (4.3-11.0)
[2019-01-22] MEDS: RT-ALBUTEROL/IPRATROPIUM 3 ML (DUONEB) VIAL INH SCH ×5 (02:51→19:07)
[2019-01-22 03:32] LABS: BAND NEUTROPHILS 0 %; BASOPHILS % (MANUAL) 0 %; EOSINOPHILS % (MANUAL) 0 %; LYMPHOCYTES % (MANUAL) 3 %; MONOCYTES % (MANUAL) 1 %; NEUTROPHILS % (MANUAL) 96 %; RBC MORPH NORMAL
[2019-01-22 03:40] LABS: CALCIUM 9.6 MG/DL (8.5-10.1); CREATININE SERUM 1.02 MG/DL (0.60-1.30); MAGNESIUM 1.8 MG/DL (1.6-2.4); PHOSPHORUS 3.9 MG/DL (2.3-4.7)
[2019-01-22] MEDS: MAGNESIUM 1 GM/100 ML IVPB 100 ML IV SCH (03:47)
[2019-01-22] MEDS: POTASSIUM CL 10MEQ/50ML IVPB 50 ML IV SCH (03:47)
[2019-01-22] MEDS: KCL 20 MEQ TAB (K-DUR) PO SCH (03:48)
--- NOTE | 2019-01-22 04:46 | Pulmonary Progress Note ---
Subjective Date Seen by a Provider: Jan 22, 2019 Time Seen by a Provider: 04:43 Subjective/Events-last exam No acute events overnight. Patient states that she is still feeling short of breath, she is not sure if it is better or worse today after receiving steroids yesterday. She reports that she did cough up some yellow sputum after her nebulizer yesterday. She states that she felt like she needed to cough up the sputum that has been in her chest. She denies fevers, chills, chest pain, nausea, vomiting, and diarrhea. Sepsis Event Evaluation Height, Weight, BMI Height: 4'10.00" Weight: 124lbs. 0.0oz. 56.404914uz; 28.48 BMI Method: Exam Exam Vital Signs Date Time Temp Pulse Resp B/P (MAP) Pulse Ox O2 Delivery O2 Flow Rate FiO2 01/22/19 03:38 36.2 01/22/19 03:03 95 Nasal Cannula 3.00 01/22/19 02:51 96 Nasal Cannula 3.00 01/22/19 02:00 87 21 121/65 (83) 95 Nasal Cannula 3.00 01/22/19 01:00 67 22 123/65 (84) 94 Nasal Cannula 3.00 01/22/19 01:00 70 01/22/19 00:00 95 Nasal Cannula 3.00 01/22/19 00:00 79 25 116/59 (78) 94 Nasal Cannula 3.00 01/22/19 00:00 36.5 01/21/19 23:00 75 17 125/55 (78) 92 Nasal Cannula 3.00 01/21/19 22:24 100 Nasal Cannula 3.00 01/21/19 22:00 74 22 127/61 (83) 98 Nasal Cannula 3.00 01/21/19 21:00 75 28 137/69 (91) 95 Nasal Cannula 3.00 01/21/19 20:00 36.7 01/21/19 20:00 103 32 145/64 (91) 97 Nasal Cannula 3.00 01/21/19 20:00 95 Nasal Cannula 3.00 01/21/19 19:20 99 Nasal Cannula 3.00 01/21/19 19:00 111 01/21/19 19:00 106 16 97/80 (86) 98 Nasal Cannula 3.00 01/21/19 18:00 104 17 114/89 (97) 95 Nasal Cannula 3.00 01/21/19 16:00 95 Nasal Cannula 2.00 01/21/19 16:00 37.2 01/21/19 14:27 95 Nasal Cannula 3.00 01/21/19 14:00 81 24 109/66 (80) 94 Nasal Cannula 3.00 01/21/19 13:43 93 01/21/19 13:19 Nasal Cannula 3.00 01/21/19 13:00 82 24 121/49 (73) 92 Nasal Cannula 2.00 01/21/19 12:39 36.5 84 27 118/61 (80) 94 Nasal Cannula 2.00 2.00 01/21/19 12:00 36.6 83 24 107/71 (83) 92 Nasal Cannula 2.00 01/21/19 12:00 94 Nasal Cannula 2.00 01/21/19 11:13 90 Nasal Cannula 2.00 01/21/19 11:00 90 20 127/66 (86) 93 Nasal Cannula 2.00 01/21/19 10:00 64 30 129/103 (112) 92 Nasal Cannula 2.00 01/21/19 09:58 36.97865 84 27 118/61 96 Nasal Cannula 2.00 01/21/19 09:00 84 27 118/61 (80) 96 Nasal Cannula 2.00 01/21/19 08:36 01/21/19 08:13 96 Nasal Cannula 2.00 01/21/19 08:00 36.5 69 22 108/60 (76) 92 Nasal Cannula 2.00 01/21/19 08:00 80 20 98/51 (67) 94 Nasal Cannula 2.00 01/21/19 07:01 84 01/21/19 07:00 36.5 01/21/19 07:00 74 25 123/108 (113) 94 Nasal Cannula 2.00 01/21/19 06:45 Nasal Cannula 2.00 01/21/19 06:38 96 Nasal Cannula 2.00 01/21/19 06:00 77 17 137/64 (88) 93 Nasal Cannula 2.00 01/21/19 05:00 79 21 133/67 (89) 95 Nasal Cannula 2.00 I & O 01/22/19 07:00 Intake Total 1280 ml Output Total 1100 ml Balance 180 ml Height & Weight Height: 4'10.00" Weight: 124lbs. 0.0oz. 56.283139fr; 28.48 BMI Method: General Appearance: No Apparent Distress, Chronically ill HEENT: PERRL/EOMI Neck: Normal Inspection, Supple Respiratory: No Accessory Muscle Use, No Respiratory Distress, Wheezing, Other (on oxygen) Cardiovascular: Irregularly Irregular Capillary Refill: Less Than 3 Seconds Peripheral Pulses: 2+ Radial Pulses (R), 2+ Radial Pulses (L) Gastrointestinal: normal bowel sounds Extremity: Normal Inspection, Non Tender, No Pedal Edema Neurologic/Psychiatric: Alert, Oriented x3 Skin: Normal Color, Warm/Dry Lymphatic: No Adenopathy Results Lab Laboratory Tests 01/21/19 03:00 01/22/19 02:45 Radiology 01/21/19 Chest Xray IMPRESSION: 1. Findings are consistent with mild chronic congestive failure. Overall appearance is not changed significantly since the previous exam. Assessment/Plan Assessment/Plan COPDAE -On 3L O2 at home -Solumedrol 40mg Q6 started 01/21/19 -Prednisone 40mg daily up to 01/21/19 -Duoneb RT Q4 and PRN Q2 -Advair -Singulair [facility] with pulmonary edema and small right pleural effusion -Lasix 40mg daily -Claims Adjudicator. bump overnight 01/22/19 Afib with RVR -S/p BARBIE shows intracardiac thrombus -Lovenox -Cardiology following -Cardizem drip D/Cd, started PO diltiazem 01/21/19 NSTEMI type II Hyperkalemia -resolved VERN NOLASCO MED STUDENT Jan 22, 2019 04:46 POS
[2019-01-22] MEDS: FUROSEMIDE 40 MG/4 ML INJ (LASIX) IVP SCH (05:49)
[2019-01-22] MEDS: CATHETER FLUSH 10 ML SYR IV SCH ×3 (05:53→23:00)
[2019-01-22] MEDS: RT-ADVAIR HFA 115/21 MCG PER PUFF IH SCH ×2 (06:57→19:07)
--- NOTE | 2019-01-22 07:08 | Cardiology Progress Note ---
Subjective Date Seen by Provider: Jan 22, 2019 Time Seen by Provider: 07:05 Subjective/Events-last exam Patient is feeling better, breathing better today, tolerating oral amiodarone and Cardizem Review of Systems General: No Chills, No Night Sweats, No Fatigue, No Malaise, No Appetite, No Other HEENT: No Head Aches, No Visual Changes, No Eye Pain, No Ear Pain, No Dy sphasia, No Sinus Congestion, No Post Nasal Drip, No Sore Throat, No Other Pulmonary: Dyspnea; No Cough, No Pleuritic Chest Pain, No Other Cardiovascular: No: Chest Pain, Palpitations, Orthopnea, Paroxysmal Noc. Dyspnea, Edema, Lt Headedness, Other Objective-Cardiology Exam Last Set of Vital Signs Vital Signs 01/20/19 01/22/19 01/22/19 01/22/19 01/22/19 09:11 03:38 06:00 06:58 06:59 Temp 36.2 Pulse 77 Resp 21 B/P (MAP) 136/59 (84) Pulse Ox 96 O2 Delivery Nasal Cannula O2 Flow Rate 2.00 FiO2 32 Capillary Refill : Less Than 3 SecondsLess Than 3 Seconds I&O Intake and Output 01/22/19 00:00 Intake Total 1480 ml Output Total 2300 ml Balance -820 ml Intake Oral 1345 ml IV Total 135 ml Output Urine Total 2300 ml # Voids 2 # Bowel Movements 1 General: Alert, Oriented X3, Cooperative, Mild Distress HEENT: Atraumatic, PERRLA Neck: Supple, No JVD, No Thyromegaly Lungs: Normal Air Movement, Other (bilateral wheezing, rhonchi) Heart: Normal S1, Normal S2, Gallops, Other (Systolic murmur at the left sternal border, atrial flutter, controlled.) Abdomen: Normal Bowel Sounds, Soft, No Tenderness, No Hepatosplenomegaly, No Masses Extremities: No Clubbing, No Cyanosis, Normal Pulses, No Tenderness/Swelling, Other (Mild edema) Skin: No Rashes, No Breakdown, No Significant Lesion Neuro: Normal Gait, Normal Speech, Strength at 5/5 X4 Ext, Normal Tone, Sensation Intact Psych/Mental Status: Mental Status NL, Mood NL Results Lab Laboratory Tests 01/22/19 02:45 A/P-Cardiology Admission Diagnosis Shortness of breath Type II myocardial infarction Severe mitral regurgitation Coronary artery disease Assessment/Plan Shortness of breath, improving slowly, combination of COPD and pulmonary edema, planning for CT of the chest today. Paroxysmal atrial fibrillation, better heart rate control, BARBIE was done and showed questionable left atrial appendage thrombus, was unable to tolerate higher dose of Cardizem due to hypotension, rate is better controlled on amiodarone. Continue with anticoagulation. Severe mitral regurgitation noted on 2-D Echo with dilated left atrium, discussed with the patient the management plan, she could benefit from mitral valve clip, patient wants everything done. We'll try to reach out to [facility] Type II myocardial infarction, slight elevation in troponin level probably due to respiratory failure and coronary artery disease. Coronary artery disease, history of CABG 3 done in 1986, we need to have a stress test as an outpatient Hypertension, controlled, continue to monitor blood pressure Hyperlipidemia, I will evaluate lipid profile Clinical Quality Measures DVT/VTE Risk/Contraindication: Risk Factor Score Per Nursin RFS Level Per Nursing on Admit: 4+=Very High MILLY SEE MD Jan 22, 2019 07:08 POS
[2019-01-22 07:28] LABS: CHOLESTEROL 199 MG/DL (< 200); HDL CHOLESTEROL 79 MG/DL (40-60); TRIGLYCERIDES 98 MG/DL (<150); VLDL CHOLESTEROL 20 MG/DL (5-40)
[2019-01-22] MEDS ORDERED: IOHEXOL 350 MG/ML 100 ML (OMNIPAQUE 350) VIAL IV ONE (07:30)
[2019-01-22] MEDS ORDERED: NS 100 ML (IVPB) BAG IV ONE (07:30)
--- NOTE | 2019-01-22 08:07 | Diagnostic Imaging Report ---
PROCEDURE: CT chest with contrast only. TECHNIQUE: Multiple contiguous axial images were obtained through the chest after administration of intravenous contrast. Auto Exposure Controls were utilized during the CT exam to meet ALARA standards for radiation dose reduction. INDICATION: Dyspnea Comparison is made to the study of 12/31/2018. There has been mild increase in dependent atelectasis and/or pneumonitis, greater on the left. There is generalized cardiomegaly with coronary artery calcification. Occasional calcified granulomas are seen in both lungs. There is aortic atherosclerotic calcification. Right anterior chest wall port is again demonstrated. No pathologic adenopathy is identified. There is questionable mural thickening in the esophagus. IMPRESSION: Mild increase in basilar atelectasis and/or pneumonitis, greater on the left. There is a small amount of left basilar pleural fluid. Otherwise, there is continued cardiomegaly and coronary artery calcification. There is questionable mural thickening of the esophagus and clinical correlation would be of use. Dictated by: Dictated on workstation # [id number]
--- NOTE | 2019-01-22 08:24 | Progress Note - Hospitalist ---
Subjective HPI/CC On Admission Date Seen by Provider: Jan 22, 2019 Time Seen by Provider: 08:19 shortness of breath Subjective/Events-last exam Pt reports feeling better and breathing better but has nasal congestion. Objective Exam Vital Signs Vital Signs Date Time Temp Pulse Resp B/P (MAP) Pulse Ox O2 Delivery O2 Flow Rate FiO2 01/22/19 08:00 91 114/58 (76) 95 Nasal Cannula 3.00 01/22/19 07:30 36.3 01/22/19 07:00 11 01/20/19 09:11 32 Capillary Refill : Less Than 3 SecondsLess Than 3 Seconds General Appearance: No Apparent Distress, Chronically ill Respiratory: No Accessory Muscle Use, No Respiratory Distress, Wheezing Cardiovascular: Regular Rate, Rhythm, No Murmur Gastrointestinal: Normal Bowel Sounds, Non Tender, Soft Extremity: No Calf Tenderness, No Pedal Edema Neurologic/Psychiatric: Alert, Oriented x3 Results/Procedures Lab Laboratory Tests 01/22/19 02:45 Patient resulted labs reviewed. Imaging: Reviewed Imaging Report Assessment/Plan Assessment and Plan Assess & Plan/Chief Complaint Atrial Fibrillation with RVR- resolved Acute on chronic heart failure with preserved ejection fraction NSTEMI, type II CAD s/p CABG 1986 Severe Mitral Regurgitation - Currently on oral Cardizem and oral Amiodarone - Cardiology consulted, appreciate recs - TTE revealed preserved EF, grade 2 diastolic dysfunction, severe MR- needs mitral clip - BARBIE done and could not exclude thrombus so cardioversion not done Acute exacerbation of COPD Chronic hypoxemic respiratory failure -Continue Solu-Medrol -MAT protocol -Continue Lasix -Pulmonology following, appreciate recs - CT Chest done today, results pending NSCLC -Not currently on chemotherapy -Follows with Dr. Patricia DVT Prophylaxis: Lovenox therapeutic dosing now due to a-fib Diagnosis/Problems Diagnosis/Problems (1) Atrial fibrillation with RVR Status: Acute (2) CAD (coronary artery disease) Status: Chronic (3) Acute on chronic heart failure with preserved ejection fraction (HFpEF) Status: Acute (4) NSTEMI (non-ST elevation myocardial infarction) Status: Acute (5) COPD with acute exacerbation Status: Acute (6) Chronic hypoxemic respiratory failure Status: Chronic (7) Elevated troponin Status: Acute (8) Non-small cell lung cancer Status: Chronic Qualifiers: Laterality: unspecified laterality Qualified Codes: C34.90 - Malignant neoplasm of unspecified part of unspecified bronchus or lung Clinical Quality Measures DVT/VTE Risk/Contraindication: Risk Factor Score Per Nursin RFS Level Per Nursing on Admit: 4+=Very High NOEL MENDOZA MD Jan 22, 2019 08:24 POS
--- NOTE | 2019-01-22 08:30 | Diagnostic Imaging Report ---
INDICATION: Dyspnea. Time of exam 3:29 AM Correlation is made with prior study from one day earlier. Changes of median sternotomy are noted. Heart is enlarged but stable. Right-sided line has tip overlying the SVC. There is some minimal infiltrate or atelectasis left base, similar to prior study. Mid and upper lung mcclain are clear. There is no pneumothorax. IMPRESSION: Stable chest since examination one day earlier. Dictated by: Dictated on workstation # [id number]
[2019-01-22] MEDS: FLUTICASONE NASAL SPRAY (FLONASE) 16 GM BTL NS SCH (10:33)
[2019-01-22] MEDS: AMIODARONE 200 MG (CORDARONE) TAB PO SCH ×2 (10:33→22:52)
[2019-01-22] MEDS: NYSTATIN ORAL SUSP 5 ML UDC PO SCH ×2 (10:33→22:54)
[2019-01-22] MEDS: ASPIRIN E.C. 81 MG (ECOTRIN) TAB PO SCH (10:33)
[2019-01-22] MEDS: ENOXAPARIN 80 MG/0.8 ML (LOVENOX) SYR SC SCH ×2 (10:34→22:59)
[2019-01-22] MEDS: GABAPENTIN 300 MG (NEURONTIN) CAP PO SCH ×2 (10:34→22:52)
[2019-01-22] MEDS: ISOSORBIDE MONONITRATE 30 MG (IMDUR) TAB PO SCH (10:34)
[2019-01-22] MEDS: LORATADINE (CLARITIN) 10 MG TAB PO SCH (10:38)
[2019-01-22] MEDS: DOCUSATE SODIUM 100 MG (COLACE) CAP PO SCH ×2 (10:44→22:53)
--- NOTE | 2019-01-22 12:05 | Physical Therapy Daily Note ---
PT Daily Note-Current Subjective Patient has family present but agrees to PT at this time. Reports minimal leg pain during ambulation that has been present for 30 years, since nerve damage during previous surgery. Pain Numeric Pain Scale: 3 Location: Left Location Body Site: Calf Pain Description: Ache Mental Status Patient Orientation: Normal For Age Attachments: SCD's, Oxygen (3L) Transfers SCALE: Activities may be completed with or without assistive devices. 4-Bryncdvlwv-buhneom completes the activity by him/herself with no assistance from a helper. 5-Set-up or Clean-up Assistance-helper sets up or cleans up; patient completes activity. [place] assists only prior to or following the activity. 4-Supervision or Touching Assistance-helper provides verbal cues and/or touching/steadying and/or contact guard assistance as patient completes activity. Assistance may be provided throughout the activity or intermittently. 3-Partial/Moderate Assistance-helper does LESS THAN HALF the effort. [place] lifts, holds or supports trunk or limbs, but provides less than half the effort. 2-Substantial/Maximal Assistance-helper does MORE THAN HALF the effort. [place] lifts or holds trunk or limbs and provides more than half the effort. 6-Kmoyclzwm-ekcofe does ALL the effort. Patient does none of the effort to complete the activity. Or, the assistance of 2 or more helpers is required for the patient to complete the activity. If activity was not attempted, code reason: 7-Patient Refused. 9-Not Applicable-not attempted and the patient did not perform the activity before the current illness, exacerbation or injury. 10-Not Attempted due to Environmental Limitations-(lack of equipment, weather restraints, etc.). 88-Not Attempted due to Medical Conditions or Safety Concerns. Roll Left & Right (QC): 6 Lying to Sitting/Side of Bed(Q: 6 Sit to Stand (QC): 6 Weight Bearing Right Lower Extremity: Right Weight Bearing/Tolerated Left Lower Extremity: Left Weight Bearing/Tolerated Gait Training Does the Patient Walk?: Yes Distance: 300' Walk 10 feet (QC): 6 Walk 50 ft with 2 Turns(QC): 6 Walk 150 ft (QC): 6 Gait Assistive Device: FWW Normal pace and pattern Assessment Patient able to perform all bed mobility and transfers independently. Patient ambulated with FWW 300' independently with minimal LE pain present. Patient seated in chair with family at conclusion of treatment. PT Group Home Goals Vibration Engineer Goals PT Group Home Goals Time Frame: Jan 30, 2019 Roll Left & Right (QC): 6 Sit to Lying (QC): 6 Lying-Sitting on Side/Bed(QC): 6 Sit to Stand (QC): 6 Chair/Cgf-sv-Rkfom Xfer(QC): 6 Toilet Transfer (QC): 6 Car Transfer (QC): 6 Does the Patient Walk: Yes Walk 10 feet (QC): 6 Walk 50ft with 2 Turns (QC): 6 Walk 150 ft (QC): 6 Walking 10ft on Uneven Surface: 6 1 Step (curb) (QC): 6 4 Steps (QC): 6 12 Steps (QC): 9 Picking up an Object (QC): 6 Does the Pt use WC or Scooter?: No Type: N/A Type: N/A PT Plan Treatment/Plan Treatment Plan: Continue Plan of Care Treatment Plan: Education, Functional Activity Michael, Functional Strength, Gait, Safety, Therapeutic Exercise, Transfers, Other Treatment Duration: Jan 30, 2019 Frequency: 6 times per week Estimated Hrs Per Day: .25 hour per day Patient and/or Family Agrees t: Yes Time/GCodes Time In: 1121 Time Out: 1137 Total Billed Treatment Time: 16 Total Billed Treatment 1 visit FA 16min YOU GRIGSBY PT Jan 22, 2019 12:05 POS
[2019-01-22] MEDS: SIMvastatin 10 MG (ZOCOR) TAB PO SCH (22:52)
[2019-01-22] MEDS: MONTELUKAST 10 MG (SINGULAIR) TAB PO SCH (22:53)
[2019-01-22] MEDS: TIMOLOL MALEATE 0.5% 5 ML (TIMOPTIC) BTL OU SCH (23:04)
[2019-01-23] MEDS: DILTIAZEM 30 MG (CARDIZEM) TAB PO SCH ×3 (01:54→12:36)
[2019-01-23] MEDS: methylPREDNISolone 40 MG/ML (Solu-MEDROL) VIAL IV SCH ×3 (01:54→12:29)
[2019-01-23] MEDS: RT-ALBUTEROL/IPRATROPIUM 3 ML (DUONEB) VIAL INH SCH ×3 (02:54→09:29)
[2019-01-23 03:30] VITALS: BP 113/63
[2019-01-23 06:02] LABS: BASOPHILS % (AUTO) 0 % (0-10); EOSINOPHILS % (AUTO) 0 % (0-10); HEMATOCRIT 33 % (35-52); LYMPHOCYTES # (AUTO) 0.3 X 10^3 (1.0-4.0); LYMPHOCYTES % (AUTO) 4 % (12-44); MEAN CORPUSCULAR HEMOGLOBIN 29 PG (25-34); MEAN CORPUSCULAR HGB CONC 31 G/DL (32-36); MEAN CORPUSCULAR VOLUME 95 FL (80-99); MEAN PLATELET VOLUME 10.5 FL (7.4-10.4); MONOCYTES # (AUTO) 0.3 X 10^3 (0.0-1.0); MONOCYTES % (AUTO) 4 % (0-12); NEUTROPHILS # (AUTO) 7.7 X 10^3 (1.8-7.8); NEUTROPHILS % (AUTO) 93 % (42-75); PLATELET COUNT 217 10^3/uL (130-400); RED CELL DISTRIBUTION WIDTH 13.2 % (10.0-14.5); WHITE BLOOD COUNT 8.3 10^3/uL (4.3-11.0)
[2019-01-23 06:18] LABS: CALCIUM 9.2 MG/DL (8.5-10.1); CREATININE SERUM 0.9 MG/DL (0.60-1.30); PHOSPHORUS 3.7 MG/DL (2.3-4.7); POTASSIUM 3.3 MMOL/L (3.6-5.0)
[2019-01-23] MEDS: POTASSIUM CL 10MEQ/50ML IVPB 50 ML IV SCH (06:23)
[2019-01-23] MEDS: MAGNESIUM 1 GM/100 ML IVPB 100 ML IV SCH (06:23)
[2019-01-23] MEDS: KCL 20 MEQ TAB (K-DUR) PO SCH ×3 (06:24→11:44)
[2019-01-23] MEDS: CATHETER FLUSH 10 ML SYR IV SCH (07:03)
[2019-01-23 08:00] VITALS: BP 106/71
[2019-01-23] MEDS: ASPIRIN E.C. 81 MG (ECOTRIN) TAB PO SCH (08:07)
[2019-01-23] MEDS: ISOSORBIDE MONONITRATE 30 MG (IMDUR) TAB PO SCH (08:07)
[2019-01-23] MEDS: LORATADINE (CLARITIN) 10 MG TAB PO SCH (08:08)
[2019-01-23] MEDS: AMIODARONE 200 MG (CORDARONE) TAB PO SCH (08:08)
[2019-01-23] MEDS: GABAPENTIN 300 MG (NEURONTIN) CAP PO SCH (08:09)
[2019-01-23] MEDS: NYSTATIN ORAL SUSP 5 ML UDC PO SCH (08:09)
[2019-01-23] MEDS: FLUTICASONE NASAL SPRAY (FLONASE) 16 GM BTL NS SCH (08:10)
[2019-01-23] MEDS: DOCUSATE SODIUM 100 MG (COLACE) CAP PO SCH (08:12)
--- NOTE | 2019-01-23 08:32 | Progress Note - Surgery ---
Objective Exam Vital Signs Date Time Temp Pulse Resp B/P (MAP) Pulse Ox O2 Delivery O2 Flow Rate FiO2 01/23/19 03:30 36.1 53 20 113/63 (80) 93 High Flow N/C 3.00 01/23/19 02:55 92 Nasal Cannula 3.00 01/22/19 23:20 36.8 53 18 116/63 (80) 96 High Flow N/C 3.00 01/22/19 20:00 95 Nasal Cannula 3.00 01/22/19 20:00 37.6 76 18 118/59 (78) 98 High Flow N/C 3.00 01/22/19 19:09 103 01/22/19 19:07 Nasal Cannula 3.00 01/22/19 19:07 90 Nasal Cannula 3.00 01/22/19 16:00 37.1 51 20 122/57 (78) 94 High Flow N/C 3.00 01/22/19 14:58 97 Nasal Cannula 3.00 01/22/19 12:18 102 01/22/19 11:07 37.2 92 22 125/64 (84) 92 High Flow N/C 3.00 I & O 01/23/19 07:00 Intake Total 1820 ml Output Total 800 ml Balance 1020 ml Capillary Refill : Less Than 3 SecondsLess Than 3 Seconds General Appearance: No Apparent Distress, Chronically ill HEENT: PERRL/EOMI Neck: Normal Inspection, Supple Respiratory: No Accessory Muscle Use, No Respiratory Distress, Wheezing Cardiovascular: Regular Rate, Rhythm, No Murmur Peripheral Pulses: 2+ Radial Pulses (R), 2+ Radial Pulses (L) Gastrointestinal: normal bowel sounds Extremity: No Calf Tenderness, No Pedal Edema Neurologic/Psychiatric: Alert, Oriented x3 Skin: Normal Color, Warm/Dry Lymphatic: No Adenopathy Results Lab Laboratory Tests 01/23/19 05:51: White Blood Count 8.3, Red Blood Count 3.43L, Hemoglobin 10.0L, Hematocrit 33L, Mean Corpuscular Volume 95, Mean Corpuscular Hemoglobin 29, Mean Corpuscular Hemoglobin Concent 31L, Red Cell Distribution Width 13.2, Platelet Count 217, Mean Platelet Volume 10.5H, Neutrophils (%) (Auto) 93H, Lymphocytes (%) (Auto) 4L, Monocytes (%) (Auto) 4, Eosinophils (%) (Auto) 0, Basophils (%) (Auto) 0, Neutrophils # (Auto) 7.7, Lymphocytes # (Auto) 0.3L, Monocytes # (Auto) 0.3, Eosinophils # (Auto) 0.0, Basophils # (Auto) 0.0, Sodium Level 141, Potassium Level 3.3L, Chloride Level 94L, Carbon Dioxide Level 39H, Anion Gap 8, Blood Urea Nitrogen 41H, Creatinine 0.90, Estimat Glomerular Filtration Rate 60, BUN/ Creatinine Ratio 46, Glucose Level 164H, Calcium Level 9.2, Phosphorus Level 3.7, Magnesium Level 2.0 Microbiology 01/15/19 Blood Culture - Final, Complete No growth 01/19/19 MRSA Screen - Final, Complete MRSA not isolated Assessment/Plan Assessment/Plan Assessment/Plan COPDAE -On 3L O2 at home -Solumedrol 40mg Q6 started 01/21/19 -Plan prednisone taper upon discharge -Prednisone 40mg daily up to 01/21/19 -Duoneb RT Q4 and PRN Q2 -Advair -Singulair -Follow up with sales and service engineer outpatient [facility] with pulmonary edema and small right pleural effusion -Lasix 40mg daily -Palm Gatherer. bump overnight 01/22/19 Afib with RVR -S/p BARBIE shows intracardiac thrombus -Lovenox -Cardiology following -Cardizem drip D/Cd, started PO diltiazem 01/21/19 NSTEMI type II Hyperkalemia -resolved Clinical Quality Measures DVT/VTE Risk/Contraindication: Risk Factor Score Per Nursin RFS Level Per Nursing on Admit: 4+=Very High VERN NOLASCO MED STUDENT Jan 23, 2019 08:32 POS
--- NOTE | 2019-01-23 08:35 | Pulmonary Progress Note ---
VERN NOLASCO MED STUDENT 01/23/19 0834: Sepsis Event Evaluation Height, Weight, BMI Height: 4'10.00" Weight: 124lbs. 0.0oz. 56.404478od; 28.48 BMI Method: Exam Exam Vital Signs Date Time Temp Pulse Resp B/P (MAP) Pulse Ox O2 Delivery O2 Flow Rate FiO2 01/23/19 03:30 36.1 53 20 113/63 (80) 93 High Flow N/C 3.00 01/23/19 02:55 92 Nasal Cannula 3.00 01/22/19 23:20 36.8 53 18 116/63 (80) 96 High Flow N/C 3.00 01/22/19 20:00 95 Nasal Cannula 3.00 01/22/19 20:00 37.6 76 18 118/59 (78) 98 High Flow N/C 3.00 01/22/19 19:09 103 01/22/19 19:07 Nasal Cannula 3.00 01/22/19 19:07 90 Nasal Cannula 3.00 01/22/19 16:00 37.1 51 20 122/57 (78) 94 High Flow N/C 3.00 01/22/19 14:58 97 Nasal Cannula 3.00 01/22/19 12:18 102 01/22/19 11:07 37.2 92 22 125/64 (84) 92 High Flow N/C 3.00 I & O 01/23/19 07:00 Intake Total 1820 ml Output Total 800 ml Balance 1020 ml Height & Weight Height: 4'10.00" Weight: 124lbs. 0.0oz. 56.425682tr; 28.48 BMI Method: General Appearance: No Apparent Distress, Chronically ill HEENT: PERRL/EOMI Neck: Normal Inspection, Supple Respiratory: No Accessory Muscle Use, No Respiratory Distress, Wheezing Cardiovascular: Regular Rate, Rhythm, No Murmur Capillary Refill: Less Than 3 Seconds Peripheral Pulses: 2+ Radial Pulses (R), 2+ Radial Pulses (L) Gastrointestinal: normal bowel sounds Extremity: No Calf Tenderness, No Pedal Edema Neurologic/Psychiatric: Alert, Oriented x3 Skin: Normal Color, Warm/Dry Lymphatic: No Adenopathy Results Lab Laboratory Tests 01/22/19 02:45 01/23/19 05:51 Radiology 01/22/[address] IMPRESSION: Mild increase in basilar atelectasis and/or pneumonitis, greater on the left. There is a small amount of left basilar pleural fluid. Otherwise, there is continued cardiomegaly and coronary artery calcification. There is questionable mural thickening of the esophagus and clinical correlation would be of use. 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 bump overnight 01/22/19 Afib with RVR -S/p BARBIE shows intracardiac thrombus -Lovenox -Cardiology following -Cardizem drip D/Cd, started PO diltiazem 01/21/19 NSTEMI type II Hyperkalemia -resolved NICOLÁS BAZZI DO 01/23/19 0916: Subjective Time Seen by a Provider: 09:13 Subjective/Events-last exam Pt is doing better from respiratory standpoint. She is on her home 02 level at 3 liters. Exam Exam General Appearance: No Apparent Distress, Chronically ill HEENT: PERRL/EOMI Neck: Normal Inspection, Supple Respiratory: No Accessory Muscle Use, No Respiratory Distress, Wheezing Cardiovascular: Regular Rate, Rhythm, No Murmur Capillary Refill: Less Than 3 Seconds Peripheral Pulses: 2+ Radial Pulses (R), 2+ Radial Pulses (L) Gastrointestinal: normal bowel sounds Extremity: No Calf Tenderness, No Pedal Edema Neurologic/Psychiatric: Alert, Oriented x3 Skin: Normal Color, Warm/Dry Lymphatic: No Adenopathy Assessment/Plan Assessment/Plan COPDAE -On 3L O2 at home -Solumedrol change to prednisone taper upon discharge -Duoneb RT Q4 and PRN Q2 -Will need to repeat CT of chest in about 8wks after discharge. -Advair -Singulair -Follow up with quality control systems manager outpatient [facility] with pulmonary edema and small right pleural effusion -Lasix 40mg daily -Director Global Market Research. bump overnight 01/22/19 Afib with RVR -S/p BARBIE shows intracardiac thrombus -Lovenox -Cardiology following -Cardizem drip D/Cd, started PO diltiazem 01/21/19 NSTEMI type II Hyperkalemia -resolved Pt is ok from pulmoanry standpoint for discharge. I will f/u with her in 2-3 wks as out pt VERN NOLASCO MED STUDENT Jan 23, 2019 08:34 NICOLÁS DALEY DO Jan 23, 2019 09:16 POS
[2019-01-23] MEDS ORDERED: AMIO200T4 PO (09:25)
[2019-01-23] MEDS ORDERED: APIX5TAB PO (09:25)
[2019-01-23] MEDS ORDERED: PRED10TA22 PO (09:25)
[2019-01-23] MEDS ORDERED: DILT120C82 PO (09:25)
--- NOTE | 2019-01-23 09:26 | Discharge Summary ---
Diagnosis/Chief Complaint Date of Admission Jan 15, 2019 at 16:00 Date of Discharge Admission Diagnosis Acute exacerbation of COPD Primary Care Jonah Santillan MD Discharge Diagnosis (1) Atrial fibrillation with RVR Status: Acute (2) CAD (coronary artery disease) Status: Chronic (3) Acute on chronic heart failure with preserved ejection fraction (HFpEF) Status: Acute (4) NSTEMI (non-ST elevation myocardial infarction) Status: Acute (5) COPD with acute exacerbation Status: Acute (6) Chronic hypoxemic respiratory failure Status: Chronic (7) Elevated troponin Status: Acute (8) Non-small cell lung cancer Status: Chronic Discharge Summary Discharge Physical Exam Allergies: Coded Allergies: cilostazol (Verified Allergy, Unknown, 05/28/17) Uncoded Allergies: TAPE (Allergy, Unknown, 05/28/17) Vitals & I&Os Vital Signs Date Time Temp Pulse Resp B/P (MAP) Pulse Ox O2 Delivery O2 Flow Rate FiO2 01/23/19 03:30 36.1 53 20 113/63 (80) 93 High Flow N/C 3.00 01/20/19 09:11 32 Hospital Course Labs (last 24 hrs) Laboratory Tests 01/23/19 05:51: White Blood Count 8.3, Red Blood Count 3.43L, Hemoglobin 10.0L, Hematocrit 33L, Mean Corpuscular Volume 95, Mean Corpuscular Hemoglobin 29, Mean Corpuscular Hemoglobin Concent 31L, Red Cell Distribution Width 13.2, Platelet Count 217, Mean Platelet Volume 10.5H, Neutrophils (%) (Auto) 93H, Lymphocytes (%) (Auto) 4L, Monocytes (%) (Auto) 4, Eosinophils (%) (Auto) 0, Basophils (%) (Auto) 0, Neutrophils # (Auto) 7.7, Lymphocytes # (Auto) 0.3L, Monocytes # (Auto) 0.3, Eosinophils # (Auto) 0.0, Basophils # (Auto) 0.0, Sodium Level 141, Potassium Level 3.3L, Chloride Level 94L, Carbon Dioxide Level 39H, Anion Gap 8, Blood Urea Nitrogen 41H, Creatinine 0.90, Estimat Glomerular Filtration Rate 60, BUN/Creatinine Ratio 46, Glucose Level 164H, Calcium Level 9.2, Phosphorus Level 3.7, Magnesium Level 2.0 Microbiology 01/15/19 Blood Culture - Final, Complete No growth 01/19/19 MRSA Screen - Final, Complete MRSA not isolated Patient resulted labs reviewed. Pending Labs Laboratory Tests 01/23/19 05:51: White Blood Count 8.3, Red Blood Count 3.43, Hemoglobin 10.0, Hematocrit 33, Mean Corpuscular Volume 95, Mean Corpuscular Hemoglobin 29, Mean Corpuscular Hemoglobin Concent 31, Red Cell Distribution Width 13.2, Platelet Count 217, Mean Platelet Volume 10.5, Neutrophils (%) (Auto) 93, Lymphocytes (%) (Auto) 4, Monocytes (%) (Auto) 4, Eosinophils (%) (Auto) 0, Basophils (%) (Auto) 0, Neutrophils # (Auto) 7.7, Lymphocytes # (Auto) 0.3, Monocytes # (Auto) 0.3, Eosinophils # (Auto) 0.0, Basophils # (Auto) 0.0, Sodium Level 141, Potassium Level 3.3, Chloride Level 94, Carbon Dioxide Level 39, Anion Gap 8, Blood Urea Nitrogen 41, Creatinine 0.90, Estimat Glomerular Filtration Rate 60, BUN/Creatinine Ratio 46, Glucose Level 164, Calcium Level 9.2, Phosphorus Level 3.7, Magnesium Level 2.0 Imaging: Reviewed Imaging Report Discharge Home Medications: Active Scripts Active Prednisone 10 Mg Tab.ds.pk 10 Mg PO DAILY Take 6 tabs(60mg)daily,decrease by 1 tab(10mg)every other day. Cardizem Cd (Diltiazem HCl) 120 Mg Cap.er.24h 120 Mg PO DAILY Eliquis (Apixaban) 5 Mg Tablet 5 Mg PO BID Amiodarone HCl 200 Mg Tablet 400 Mg PO BID Reported Iprat-Albut 0.5-3(2.5) mg/3 ml (Ipratropium/Albuterol Sulfate) 3 Ml Ampul.neb 3 Ml NEB QID PRN Aspirin EC (Aspirin) 81 Mg Tablet.dr 81 Mg PO DAILY Magnesium Oxide 400 Mg Tablet 400 Mg PO DAILY Montelukast Sodium 10 Mg Tablet 10 Mg PO HS Fexofenadine HCl 180 Mg Tablet 180 Mg PO DAILY Gabapentin 300 Mg Capsule 300 Mg PO BID Isosorbide Mononitrate ER (Isosorbide Mononitrate) 30 Mg Tab.er.24h 30 Mg PO DAILY Timolol Maleate 0.5% (Timolol Maleate) 5 Ml Drops 1 Drop OU HS Theragran-M Premier 50+ Caplet (Mv-Mn/FA/Coq10/Lycopene/Lutein) 1 Each Tablet 1 Tab PO DAILY Symbicort 160-4.5 Mcg Inhaler (Budesonide/Formoterol Fumarate) 10.2 Gm Hfa.aer.ad 2 Puff IH BID Lovastatin 20 Mg Tablet 20 Mg PO HS Instructions to patient/family Please see electronic discharge instructions given to patient. Clinical Quality Measures DVT/VTE Risk/Contraindication: Risk Factor Score Per Nursin RFS Level Per Nursing on Admit: 4+=Very High Problem Qualifiers (1) Non-small cell lung cancer: Laterality: unspecified laterality Qualified Codes: C34.90 - Malignant neoplasm of unspecified part of unspecified bronchus or lung NOEL MENDOZA MD Jan 23, 2019 09:26 POS
[2019-01-23] MEDS: RT-ADVAIR HFA 115/21 MCG PER PUFF IH SCH (09:30)
--- NOTE | 2019-01-23 09:34 | D/C HH Face to Face Order ---
D/C Face to Face Orders Instructions for Patient [facility], Patient Instructions/FollowUp: Please continue to take your medications as written. Please follow up with your PCP in the next week to follow up this hospital stay. Physician to follow Patient: Dr Santillan Discharge Diet for Home: Cardiac Diet Patient Data-Allergies,Ht & Wt Patient Allergies: Coded Allergies: cilostazol (Verified Allergy, Unknown, 05/28/17) Uncoded Allergies: TAPE (Allergy, Unknown, 05/28/17) Height (Feet): 4 Height (Inches): 10.00 Weight (Pounds): 124 Weight (Ounces): 0.0 Home Health Need/Face to Face Date of Face to Face: Jan 23, 2019 Clinical Findings: Generalized weakness and fatigue, Shortness of breath I have seen Pt [id number]: Yes Discharged To: Home Diagnosis/Conditions: COPD, Atrial fibrillation, Severe Mitral Regurgation Patient is Homebound due to: Shortness of breath/distress Homebound Status Due to the above stated illness, injury or surgical procedure (medical condition or diagnosis) and associated clinical findings, the patient is homebound because of his/her inability to leave home except with aid of a supportive device and/or person AND leaving the home requires a considerable and taxing effort or is medically contraindicated. Pt req the following assistanc: Aid of another person, Walker Home Health Nursing Orders Home Health Services Order: Nursing Services, Hardwood Floor Installer-Evaluate & Treat, Physical Therapy-Evaluate & Treat med set up Home Health Infusion Therapy Line Start Date: Jan 20, 2019 Therapy Orders Therapy Orders: OT (must have SN or PT order), Physical Therapy Therapy Specific Orders: Eval assistive deivces, Teach enviro modifications/safety, Gait training, Increase strength/endurance Certify Stmt I certify that this patient is under my care and that I, a nurse practitioner or a physician; a travel assistant working with me, had a face to face encounter that - meets the physician face to face encounter requirements with this patient as dated. NOEL MENDOZA MD Jan 23, 2019 09:34 POS
[2019-01-23] MEDS: ENOXAPARIN 80 MG/0.8 ML (LOVENOX) SYR SC SCH (11:43)
--- NOTE | 2019-01-23 11:47 | Physical Therapy Daily Note ---
PT Daily Note-Current Subjective Patient agrees to PT at this time. Reports she is discharging home today. Reports no pain. Pain Numeric Pain Scale: 0-No Pain Location: No Pain Reported Mental Status Patient Orientation: Normal For Age Attachments: Oxygen (3L) Transfers SCALE: Activities may be completed with or without assistive devices. 1-Qdaypuowkj-zoykscj completes the activity by him/herself with no assistance from a helper. 5-Set-up or Clean-up Assistance-helper sets up or cleans up; patient completes activity. [place] assists only prior to or following the activity. 4-Supervision or Touching Assistance-helper provides verbal cues and/or touching/steadying and/or contact guard assistance as patient completes activity. Assistance may be provided throughout the activity or intermittently. 3-Partial/Moderate Assistance-helper does LESS THAN HALF the effort. [place] lifts, holds or supports trunk or limbs, but provides less than half the effort. 2-Substantial/Maximal Assistance-helper does MORE THAN HALF the effort. [place] lifts or holds trunk or limbs and provides more than half the effort. 7-Humlgbpwk-colsot does ALL the effort. Patient does none of the effort to complete the activity. Or, the assistance of 2 or more helpers is required for the patient to complete the activity. If activity was not attempted, code reason: 7-Patient Refused. 9-Not Applicable-not attempted and the patient did not perform the activity before the current illness, exacerbation or injury. 10-Not Attempted due to Environmental Limitations-(lack of equipment, weather restraints, etc.). 88-Not Attempted due to Medical Conditions or Safety Concerns. Sit to Stand (QC): 6 Weight Bearing Right Lower Extremity: Right Weight Bearing/Tolerated Left Lower Extremity: Left Weight Bearing/Tolerated Gait Training Does the Patient Walk?: Yes Distance: 350' Walk 10 feet (QC): 6 Walk 50 ft with 2 Turns(QC): 6 Walk 150 ft (QC): 6 Gait Assistive Device: FWW Normal pace and pattern, required some rest breaks to catch breath. Assessment Patient independent in STS and ambulation activities. Able to ambulate 350' with FWW on 3L O2 during session, requiring some occasional rest breaks to catch breath. Patient ambulating further and at a quicker pace than previous treatment. Patient returned to chair with nursing present at conclusion of treatment. Reports some SOB at conclusion of ambulation that is usual after walking and recovers after sitting a minute. PT Correction Goals Correction Goals PT Event Representative Goals Time Frame: Jan 30, 2019 Roll Left & Right (QC): 6 Sit to Lying (QC): 6 Lying-Sitting on Side/Bed(QC): 6 Sit to Stand (QC): 6 Chair/Msj-vu-Adjnc Xfer(QC): 6 Toilet Transfer (QC): 6 Car Transfer (QC): 6 Does the Patient Walk: Yes Walk 10 feet (QC): 6 Walk 50ft with 2 Turns (QC): 6 Walk 150 ft (QC): 6 Walking 10ft on Uneven Surface: 6 1 Step (curb) (QC): 6 4 Steps (QC): 6 12 Steps (QC): 9 Picking up an Object (QC): 6 Does the Pt use WC or Scooter?: No Type: N/A Type: N/A PT Plan Treatment/Plan Treatment Plan: Continue Plan of Care Treatment Plan: Education, Functional Activity Michael, Functional Strength, Gait, Safety, Therapeutic Exercise, Transfers, Other Treatment Duration: Jan 30, 2019 Frequency: 6 times per week Estimated Hrs Per Day: .25 hour per day Patient and/or Family Agrees t: Yes Time/GCodes Time In: 1054 Time Out: 1104 Total Billed Treatment Time: 10 Total Billed Treatment 1 visit FA 10min YOU GRIGSBY PT Jan 23, 2019 11:47 POS
[2019-01-23 12:00] VITALS: BP 133/72
--- NOTE | 2019-01-23 12:00 | Cardiology Progress Note ---
Cardiology SOAP Progress Note Subjective: Improved shortness of breath. Objective: I&O/Vital Signs 01/23/19 01/23/19 01/23/19 01/23/19 02:55 03:30 08:00 08:00 Temp 36.1 36.9 Pulse 53 80 Resp 20 20 B/P (MAP) 113/63 (80) 106/71 (83) Pulse Ox 92 93 93 95 O2 Delivery Nasal Cannula High Flow N/C High Flow N/C High Flow N/C O2 Flow Rate 3.00 3.00 3.00 3.00 01/23/19 12:00 Temp 36.5 Pulse 58 Resp 18 B/P (MAP) 133/72 (92) Pulse Ox 96 O2 Delivery High Flow N/C O2 Flow Rate 3.00 01/23/19 00:00 Intake Total 1420 ml Balance 1420 ml Weight (Pounds): 124 Weight (Ounces): 0.0 Weight (Calculated Kilograms): 56.729710 Constitutional: AAO x 3 Respiratory: chest is bilaterally symmetric, lungs clear to auscultation Cardiovascular: regular rate-rhythm, S1 and S2, systolic murmur Gastrointestional: soft, audible bowel sounds Extremities: normal range of motion, non-tender, normal inspection, no lower extremity edema bilateral Neurologic/Psychiatric: no motor/sensory deficits, alert, normal mood/affect, oriented x 3 Skin: normal color Results/Procedures: Labs Laboratory Tests 01/23/19 05:51: White Blood Count 8.3, Red Blood Count 3.43L, Hemoglobin 10.0L, Hematocrit 33L, Mean Corpuscular Volume 95, Mean Corpuscular Hemoglobin 29, Mean Corpuscular Hemoglobin Concent 31L, Red Cell Distribution Width 13.2, Platelet Count 217, Mean Platelet Volume 10.5H, Neutrophils (%) (Auto) 93H, Lymphocytes (%) (Auto) 4L, Monocytes (%) (Auto) 4, Eosinophils (%) (Auto) 0, Basophils (%) (Auto) 0, Neutrophils # (Auto) 7.7, Lymphocytes # (Auto) 0.3L, Monocytes # (Auto) 0.3, Eosinophils # (Auto) 0.0, Basophils # (Auto) 0.0, Sodium Level 141, Potassium Level 3.3L, Chloride Level 94L, Carbon Dioxide Level 39H, Anion Gap 8, Blood Urea Nitrogen 41H, Creatinine 0.90, Estimat Glomerular Filtration Rate 60, BUN/Creatinine Ratio 46, Glucose Level 164H, Calcium Level 9.2, Phosphorus Level 3.7, Magnesium Level 2.0 Microbiology 01/15/19 Blood Culture - Final, Complete No growth 01/19/19 MRSA Screen - Final, Complete MRSA not isolated A/P: Assessment/Dx: Shortness of breath Type II myocardial infarction Severe mitral regurgitation Coronary artery disease Plan: Shortness of breath, improving slowly, combination of COPD and pulmonary edema Paroxysmal atrial fibrillation, better heart rate control, BARBIE was done and showed questionable left atrial appendage thrombus, was unable to tolerate higher dose of Cardizem due to hypotension, rate is better controlled on amiodarone. Continue with anticoagulation. Severe mitral regurgitation noted on 2-D Echo with dilated left atrium, discussed with the patient the management plan, she could benefit from mitral valve clip, patient wants everything done. Type II myocardial infarction, slight elevation in troponin level probably due to respiratory failure and coronary artery disease. Coronary artery disease, history of CABG 3 done in 1986, we need to have a st ress test as an outpatient Hypertension, controlled, continue to monitor blood pressure Hyperlipidemia Thank you for your consultation. Please call me if you have any questions. Kaia Hurst MD, FACP, FACC, FSCAI, FHRS, CCDS Interventional Cardiology Cardiac Electrophysiology Vascular Medicine and Endovascular Interventions Edgar HURST MD Jan 23, 2019 12:00 pm POS
[2019-01-23 14:00] VITALS: BP 133/72
== END 2019-01-23 14:00 | disposition home health service (06) | DRG 190 ==
LOC: ER FS 12:34 → EDUNIT# 12:34 → 4TH 16:00 → ICU 01-19 10:30 → 4TH 01-22 11:10
PROVIDERS: ADMIT Internal Medicine; ATTEND Internal Medicine
PROC: 5A2204Z Restoration of Cardiac Rhythm, Single (ICD-10-PCS; principal; 2019-01-19)
DX: J44.1 Chronic obstructive pulmonary disease with (acute) exacerbation (principal); I21.A1 Myocardial infarction type 2; I50.33 Acute on chronic diastolic (congestive) heart failure; J96.11 Chronic respiratory failure with hypoxia; C34.90 Malignant neoplasm of unspecified part of unspecified bronchus or lung; I11.0 Hypertensive heart disease with heart failure; J30.2 Other seasonal allergic rhinitis; G43.909 Migraine, unspecified, not intractable, without status migrainosus; M19.90 Unspecified osteoarthritis, unspecified site; H40.9 Unspecified glaucoma; I48.0 Paroxysmal atrial fibrillation; I25.10 Atherosclerotic heart disease of native coronary artery without angina pectoris; E78.5 Hyperlipidemia, unspecified; E87.5 Hyperkalemia; I34.0 Nonrheumatic mitral (valve) insufficiency; H91.90 Unspecified hearing loss, unspecified ear; Z92.21 Personal history of antineoplastic chemotherapy; Z95.5 Presence of coronary angioplasty implant and graft; Z95.1 Presence of aortocoronary bypass graft; Z90.710 Acquired absence of both cervix and uterus; Z92.3 Personal history of irradiation; Z92.25 Personal history of immunosuppression therapy
CPT/HCPCS: 36415; 71045; 71260; 80048; 80053; 80061; 82607; 82746; 83605; 83735; 83880; 84100; 84145; 84484; 85007; 85025; 85027; 87040; 87070; 87077; 87081; 87186; 87205; 87804; 93005; 93041; 93306; 93312; 93320; 94640; 94664; 94760; 96365; 96367; 96368

== ENCOUNTER 2019-01-27 15:14 | Inpatient (IN) | payer MEDICARE ==
[~2019-01-27] VITALS: Ht 160 cm; Wt 64.6 kg
[~2019-01-27 15:14] MED LIST changes: +AMIO200T4 PO; +APIX5TAB PO; +ASPI-983 PO; +DILT120C82 PO; +FEXO-46 PO; +GABA-488 PO; +IPRA3AMP31 NEB; +MAGN400T6 PO; +MONT10TA24 PO; +PRED10TA22 PO
--- NOTE | 2019-01-27 15:44 | ED Dyspnea ---
General Stated Complaint: FAST HEART BEAT Source of Information: Patient Exam Limitations: No Limitations History of Present Illness Date Seen by Provider: Jan 27, 2019 Time Seen by Provider: 15:25 Initial Comments The patient is a pleasant 83-year-old female who presents for evaluation of tachycardia and shortness of breath. She was recently admitted to the hospital for COPD, atrial fibrillation, and possible pneumonia. She was discharged and prescribed diltiazem and Eliquis but has not yet gotten the prescriptions filled. She is noted to be tachycardic upon arrival and an EKG shows atrial fibrillation with RVR. She denies chest pain, nausea or vomiting, productive cough, hemoptysis, pain with inspiration, abdominal pain, back pain, dizziness or syncope. He has audible crackles but the patient and family state that her breathing sounds much better now than when she was in the hospital. Timing/Duration: 4-6 Hours Severity: Moderate Activities at Onset: None Prior Episodes/Possible Cause: Chronic Episodes Associated Symptoms: Cough Allergies and Home Medications Allergies Coded Allergies: cilostazol (Verified Allergy, Unknown, 05/28/17) Uncoded Allergies: TAPE (Allergy, Unknown, 05/28/17) Home Medications Amiodarone HCl 200 Mg Tablet, 400 MG PO BID Prescribed by: NOEL MENDOZA on 01/23/19924 Apixaban 5 Mg Tablet, 5 MG PO BID Prescribed by: NOEL MENDOZA on 01/23/19924 Aspirin 81 Mg Tablet.dr, 81 MG PO DAILY, (Reported) Budesonide/Formoterol Fumarate 10.2 Gm Hfa.aer.ad, 2 PUFF IH BID, (Reported) Diltiazem HCl 120 Mg Cap.er.24h, 120 MG PO DAILY Prescribed by: NOEL MENDOZA on 01/23/19924 Fexofenadine HCl 180 Mg Tablet, 180 MG PO DAILY, (Reported) Gabapentin 300 Mg Capsule, 300 MG PO BID, (Reported) Ipratropium/Albuterol Sulfate 3 Ml Ampul.neb, 3 ML NEB QID PRN for SHORTNESS OF BREATH, (Reported) Isosorbide Mononitrate 30 Mg Tab.er.24h, 30 MG PO DAILY, (Reported) Lovastatin 20 Mg Tablet, 20 MG PO HS, (Reported) Magnesium Oxide 400 Mg Tablet, 400 MG PO DAILY, (Reported) Montelukast Sodium 10 Mg Tablet, 10 MG PO HS, (Reported) Mv-Mn/FA/Coq10/Lycopene/Lutein 1 Each Tablet, 1 TAB PO DAILY, (Reported) Prednisone 10 Mg Tab.ds.pk, 10 MG PO DAILY Take 6 tabs(60mg)daily,decrease by 1 tab(10mg)every other day. Prescribed by: NOEL MENDOZA on 01/23/19 0925 Timolol Maleate 5 Ml Drops, 1 DROP OU HS, (Reported) Patient Home Medication List Home Medication List Reviewed: Yes Review of Systems Review of Systems Constitutional: no symptoms reported EENTM: no symptoms reported Respiratory: cough, short of breath Cardiovascular: palpitations (tachycardia) Genitourinary: no symptoms reported : No Musculoskeletal: no symptoms reported Skin: no symptoms reported Psychiatric/Neurological: No Symptoms Reported Endocrine: No Symptoms Reported Hematologic/Lymphatic: No Symptoms Reported All Other Systems Reviewed Negative Unless Noted: Yes Past Zaubgnn-Phcrhu-Lhepln Hx Past Med/Social Hx: Reviewed Nursing Past Med/Soc Hx Patient Social History Former Smoker, Quit: Apr 29, 2017 2nd Hand Smoke Exposure: No Recent Hopitalizations: Yes (apr 2017 cancer) Immunizations Up To Date PED Vaccines UTD: No Date of Pneumonia Vaccine: Jan 15, 2015 Date of Influenza Vaccine: Dec 07, 2016 Seasonal Allergies Seasonal Allergies: Yes Past Medical History Surgeries: Yes Angioplasty, CABG, Hysterectomy Respiratory: Yes (wears oxygen, lung ca) COPD Currently Using CPAP: No Currently Using BIPAP: No Cardiac: Yes (cabage) Hypertension Neurological: Yes (renaulds) Headaches /Migraines 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00" Weight: 124lbs. 0.0oz. 56.547669hp; 28.48 BMI Method: General Appearance: No Apparent Distress, WD/WN HEENT: PERRL/EOMI, Pharynx Normal Neck: Full Range of Motion, Normal Inspection, Non Tender Respiratory: Chest Non Tender, No Respiratory Distress, Crackles, Rhonci Cardiovascular: No Edema, No Gallop, No JVD, Normal Peripheral Pulses, Irregularly Irregular, Tachycardia Gastrointestinal: Normal Bowel Sounds, Non Tender, Soft Extremity: Normal Capillary Refill, Non Tender, No Calf Tenderness Neurologic/Psychiatric: Alert, Oriented x3, No Motor/Sensory Deficits, Normal Mood/Affect Skin: Normal Color, Warm/Dry Focused Exam Lactate Level 01/27/19 15:40: Lactic Acid Level 2.64*H Lactic Acid Level Laboratory Tests Test 01/27/19 15:40 Lactic Acid Level 2.64 MMOL/L (0.50-2.00) *H Progress/Results/Core Measures Results/Orders Lab Results Laboratory Tests Test 01/27/19 15:40 Range/Units White Blood Count 9.4 4.3-11.0 10^3/uL Red Blood Count 3.48 L 4.35-5.85 10^6/uL Hemoglobin 10.2 L 11.5-16.0 G/DL Hematocrit 34 L 35-52 % Mean Corpuscular Volume 96 80-99 FL Mean Corpuscular Hemoglobin 29 25-34 PG Mean Corpuscular Hemoglobin Concent 30 L 32-36 G/DL Red Cell Distribution Width 13.0 10.0-14.5 % Platelet Count 247 130-400 10^3/uL Mean Platelet Volume 10.3 7.4-10.4 FL Neutrophils (%) (Auto) 84 H 42-75 % Lymphocytes (%) (Auto) 3 L 12-44 % Monocytes (%) (Auto) 1 0-12 % Eosinophils (%) (Auto) 0 0-10 % Basophils (%) (Auto) 0 0-10 % Neutrophils # (Auto) 8.9 H 1.8-7.8 X 10^3 Lymphocytes # (Auto) 0.2 L 1.0-4.0 X 10^3 Monocytes # (Auto) 0.2 0.0-1.0 X 10^3 Eosinophils # (Auto) 0.0 0.0-0.3 10^3/uL Basophils # (Auto) 0.0 0.0-0.1 10^3/uL Neutrophils % (Manual) 94 % Lymphocytes % (Manual) 5 % Monocytes % (Manual) 0 % Eosinophils % (Manual) 0 % Basophils % (Manual) 0 % Band Neutrophils 1 % Blood Morphology Comment NORMAL Lactic Acid Level 2.64 *H 0.50-2.00 MMOL/L My Orders Orders - ROWENA AGUILERA DO Ekg Tracing (01/27/19 15:20) Cbc With Automated Diff (01/27/19 15:29) Comprehensive Metabolic Panel (01/27/19 15:29) Lactic Acid Analyzer (01/27/19 15:29) Blood Culture (01/27/19 15:29) Chest 1 View Ap/Pa Only (01/27/19 15:29) Troponin I Fs (01/27/19 15:29) Probnp Fs (01/27/19 15:29) Manual Differential (01/27/19 15:40) Piperacillin/Tazobactam (Bulk) (Zosyn In (01/27/19 16:15) Ciprofloxacin Iv 400mg/200ml (Cipro Iv S (01/27/19 16:15) Vancomycin Injection (Vancomycin Injecti (01/27/19 16:15) Cardizem Drip (01/27/19 16:30) Progress Progress Note : Progress Note @1620 - patient and family updated on lab and imaging results which show an elevated lactic acid and a new right lower lobe infiltrate. The patient will be treated with triple anabiotic therapy for HCAP and a Cardizem drip will be started. Dr. Gates accepts the inpatient admission to cardiac stepdown. Comment @1527 - Atrial fibrillation with rapid ventricular response, rate of 119, normal axis, no acute ischemic findings noted, no STEMI, right bundle-branch block is p resent, reviewed and interpreted by myself Departure Communication (Admissions) Time/Spoke to Admitting Phy: 16:20 Dr. Gates accepts the admission to cardiac stepdown Impression Primary Impression: Atrial fibrillation with RVR Additional Impressions: HCAP (healthcare-associated pneumonia) Sepsis Disposition: 09 ADMITTED INPATIENT Condition: Stable Admissions Decision to Admit Reason: Admit from ER (General) Decision to Admit/Date: Jan 27, 2019 Time/Decision to Admit Time: 16:20 Departure-Patient Inst. Referrals: ODALYS TORRES MD (PCP/Family) Primary Care Physician ROWENA AGUILERA DO Jan 27, 2019 15:44 POS
[2019-01-27 15:53] LABS: BASOPHILS % (AUTO) 0 % (0-10); EOSINOPHILS % (AUTO) 0 % (0-10); HEMATOCRIT 34 % (35-52); HEMOGLOBIN 10.2 G/DL (11.5-16.0); LYMPHOCYTES # (AUTO) 0.2 X 10^3 (1.0-4.0); LYMPHOCYTES % (AUTO) 3 % (12-44); MEAN CORPUSCULAR HEMOGLOBIN 29 PG (25-34); MEAN CORPUSCULAR HGB CONC 30 G/DL (32-36); MEAN CORPUSCULAR VOLUME 96 FL (80-99); MEAN PLATELET VOLUME 10.3 FL (7.4-10.4); MONOCYTES # (AUTO) 0.2 X 10^3 (0.0-1.0); MONOCYTES % (AUTO) 1 % (0-12); NEUTROPHILS # (AUTO) 8.9 X 10^3 (1.8-7.8); NEUTROPHILS % (AUTO) 84 % (42-75); PLATELET COUNT 247 10^3/uL (130-400); WHITE BLOOD COUNT 9.4 10^3/uL (4.3-11.0)
[2019-01-27 16:08] LABS: BAND NEUTROPHILS 1 %; BASOPHILS % (MANUAL) 0 %; EOSINOPHILS % (MANUAL) 0 %; LYMPHOCYTES % (MANUAL) 5 %; MONOCYTES % (MANUAL) 0 %; NEUTROPHILS % (MANUAL) 94 %; RBC MORPH NORMAL
--- NOTE | 2019-01-27 16:10 | Diagnostic Imaging Report ---
HISTORY: Cough, shortness of breath. TECHNIQUE: Frontal view of the chest. COMPARISON: 01/22/2019 FINDINGS: There is mild cardiomegaly. There is aortic atherosclerosis. Mildly increased airspace opacities are seen in the right lung base. There may be a small right pleural effusion. Haziness in the lung bases is thought to be at least in part due to overlying soft tissue. No pneumothorax is seen. The right Port-A-Cath tip projects over the SVC. There is diffuse osteopenia. IMPRESSION: 1. Increased airspace opacities in the right lung base may represent atelectasis or infiltrate. There is a small right pleural effusion. 2. Mild cardiomegaly. Dictated by: Dictated on workstation # [id number]
[2019-01-27] MEDS ORDERED: PIPERACILLIN/TAZOBACTAM (BULK) 4.5 GM in NS (IVPB) 100 ML IV ONE (16:15)
[2019-01-27] MEDS ORDERED: CIPROFLOXACIN IV 400MG/200ML 200 ML IV ONE (16:15)
[2019-01-27] MEDS ORDERED: VANCOMYCIN INJECTION 1,000 MG in NS (IVPB) 250 ML IV SCH (16:15)
[2019-01-27 16:20] LABS: POTASSIUM 4.8 MMOL/L (3.6-5.0); SODIUM 136 MMOL/L (135-145)
[2019-01-27 16:21] LABS: ALANINE AMINOTRANSFERASE 21 U/L (0-55); ALKALINE PHOSPHATASE 48 U/L (40-136); BILIRUBIN,TOTAL 0.2 MG/DL (0.1-1.0); BUN/CREATININE RATIO 34; CALCIUM 8.6 MG/DL (8.5-10.1); CARBON DIOXIDE 30 MMOL/L (21-32); CHLORIDE 96 MMOL/L (98-107); CREATININE SERUM 0.79 MG/DL (0.60-1.30); GFR ESTIMATED > 60; GLUCOSE 331 MG/DL (70-105); TOTAL PROTEIN 5.9 GM/DL (6.4-8.2)
[2019-01-27 16:22] LABS: ALBUMIN 3.4 GM/DL (3.2-4.5)
[2019-01-27] MEDS ORDERED: DILTIAZEM IV FOR DRIP 125 MG in NS (IVPB) 100 ML IV SCH (16:30)
[2019-01-27] MEDS ORDERED: NS (IVPB) 100 ML ONE (17:36)
[2019-01-27] MEDS ORDERED: PIPERACILLIN/TAZO 4.5 GM VIAL (ZOSYN) IV ONE (17:36)
[2019-01-27 19:00] VITALS: BP 131/109
--- NOTE | 2019-01-27 19:00 | NUR ---
DAVI MG admitted to room CU9-1, with an admitting diagnosis of PNA, SEPSIS, AFIB WITH RVR , on 01/27/19 from [facility] [place] via BED, accompanied by EMS AT 1850. DAVI MG introduced to surroundings, call light, bed controls, phone, TV, temperature control, lights, meal times, smoking policy, visitor policy, side rail policy, bathrooms and showers. Patient Rights given to patient in the handbook.DAVI MG verbalizes understanding that [facility] is not responsible for the loss or damage to any personal effects or valuables that are kept in the patients posession during their hospitalization.
[2019-01-27 20:00] VITALS: BP 103/87
[2019-01-27 21:00] VITALS: BP 121/86
[2019-01-27] MEDS ORDERED: NS IV 1000 ML 1,000 ML IV SCH (21:30)
[2019-01-27] MEDS ORDERED: APIXABAN 5 MG (ELIQUIS) TABLET ONE (21:35)
[2019-01-27] MEDS ORDERED: NS IV 1000 ML 1,000 ML ONE (21:36)
[2019-01-27] MEDS: APIXABAN 5 MG (ELIQUIS) TABLET PO SCH (21:42)
[2019-01-27 22:00] VITALS: BP 130/63
[2019-01-27 23:00] VITALS: BP 140/60
[2019-01-28] VITALS (16 sets, daily range): BP systolic 91–146; BP diastolic 50–119
[2019-01-28] MEDS ORDERED: RT-ALBUTEROL SULF 2.5 MG/3 ML PRE-MIX VIAL ONE (02:07)
--- NOTE | 2019-01-28 03:10 | NUR ---
0150--PATIENT CALLED FOR THE NURSE D/T FEELING LIKE SHE WAS SHORT OF AIR. UPON ASSESSMENT THIS RN NOTED AUDIBLE WHEEZING AND DIMINISHED LUNG SOUNDS BILATERALLY - PT ALSO STATED THAT SHE FELT TIGHT IN THE CHEST. THIS RN CONTACTED E-ICU AND RELAYED THIS PTS SYMPTOMS. E-ICU GAVE ORDERS FOR AN EKG AND BREATHING TX.
--- NOTE | 2019-01-28 03:13 | NUR ---
PT NOW RESTING COMFORTABLY IN BED WITH NO FURTHER COMPLAINTS
[2019-01-28 03:45] LABS: BASOPHILS % (AUTO) 0 % (0-10); EOSINOPHILS % (AUTO) 0 % (0-10); HEMATOCRIT 31 % (35-52); HEMOGLOBIN 9.3 G/DL (11.5-16.0); LYMPHOCYTES # (AUTO) 0.7 X 10^3 (1.0-4.0); LYMPHOCYTES % (AUTO) 8 % (12-44); MEAN CORPUSCULAR HEMOGLOBIN 29 PG (25-34); MEAN CORPUSCULAR HGB CONC 30 G/DL (32-36); MEAN CORPUSCULAR VOLUME 98 FL (80-99); MEAN PLATELET VOLUME 10.4 FL (7.4-10.4); MONOCYTES # (AUTO) 0.6 X 10^3 (0.0-1.0); MONOCYTES % (AUTO) 7 % (0-12); NEUTROPHILS # (AUTO) 7.6 X 10^3 (1.8-7.8); NEUTROPHILS % (AUTO) 85 % (42-75); PLATELET COUNT 214 10^3/uL (130-400); RED CELL DISTRIBUTION WIDTH 13.2 % (10.0-14.5)
[2019-01-28 03:55] LABS: BUN/CREATININE RATIO 26; CALCIUM 8.4 MG/DL (8.5-10.1); CARBON DIOXIDE 31 MMOL/L (21-32); CHLORIDE 102 MMOL/L (98-107); CREATININE SERUM 0.84 MG/DL (0.60-1.30); GFR ESTIMATED > 60; GLUCOSE 120 MG/DL (70-105); MAGNESIUM 1.9 MG/DL (1.6-2.4); PHOSPHORUS 2.2 MG/DL (2.3-4.7); POTASSIUM 4.2 MMOL/L (3.6-5.0); SODIUM 141 MMOL/L (135-145)
--- NOTE | 2019-01-28 04:32 | Pulmonary Consultation ---
History of Present Illness History of Present Illness Date Seen by Provider: Feb 11, 2019 Time Seen by Provider: 04:28 Date of Admission History of Present Illness 83yo with recent hospitalization for COPD, and afib rvr discharged last week prested to ED secondary to tachycardia and found to have Afib RVR . enies chest pain, nausea or vomiting, productive cough, hemoptysis, pain with inspiration, abdominal pain, back pain, dizziness or syncope. Allergies and Home Medications Allergies Coded Allergies: cilostazol (Verified Allergy, Unknown, 05/28/17) Uncoded Allergies: TAPE (Allergy, Unknown, 05/28/17) Home Medications Apixaban 5 Mg Tablet, 5 MG PO BID, (Reported) Aspirin 81 Mg Tablet.dr, 81 MG PO DAILY, (Reported) Budesonide/Formoterol Fumarate 10.2 Gm Hfa.aer.ad, 2 PUFF IH BID, (Reported) Diltiazem HCl 120 Mg Cap.er.24h, 120 MG PO DAILY, (Reported) PRESCRIBED 01-23-19 BUT NOT PICKED UP UNTIL 01-27-19 Fexofenadine HCl 180 Mg Tablet, 180 MG PO DAILY, (Reported) Gabapentin 300 Mg Capsule, 300 MG PO BID, (Reported) Ipratropium/Albuterol Sulfate 3 Ml Ampul.neb, 3 ML NEB QID PRN for SHORTNESS OF BREATH, (Reported) Isosorbide Mononitrate 30 Mg Tab.er.24h, 30 MG PO DAILY, (Reported) Lovastatin 20 Mg Tablet, 20 MG PO HS, (Reported) Magnesium Oxide 400 Mg Tablet, 400 MG PO DAILY, (Reported) Montelukast Sodium 10 Mg Tablet, 10 MG PO HS, (Reported) Mv-Mn/FA/Coq10/Lycopene/Lutein 1 Each Tablet, 1 TAB PO DAILY, (Reported) Timolol Maleate 5 Ml Drops, 1 DROP OU HS, (Reported) Past Elsllvt-Dmsqhj-Lyarlc Hx Past Med/Social Hx: Reviewed Nursing Past Med/Soc Hx Patient Social History Alcohol Use: Denies Use Recreational Drug Use: No Smoking Status: Former Smoker Type Used: Cigarettes Former Smoker, Quit: Apr 29, 2017 2nd Hand Smoke Exposure: No Recent Foreign Travel: No Contact w/Someone Who Travel: No Recent Infectious Disease Expo: No Recent Hopitalizations: Yes (apr 2017 cancer) Physical Abuse: No Sexual Abuse: No Mistreated: No Fear: No Immunizations Up To Date PED Vaccines UTD: No Date of Pneumonia Vaccine: Jan 15, 2015 Date of Influenza Vaccine: Dec 07, 2016 Seasonal Allergies Seasonal Allergies: Yes Past Medical History Surgeries: Yes Angioplasty, CABG, Hysterectomy Respiratory: Yes (wears oxygen, lung ca) COPD Currently Using CPAP: No Currently Using BIPAP: No Cardiac: Yes (cabage) Hypertension Neurological: Yes (renaulds) Headaches /Migraines 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 Genitourinary: No Gastrointestinal: No Irritable Bowel Musculoskeletal: Yes Arthritis Endocrine: No HEENT: No Glaucoma Hearing Impairment: Hard of Hearing Cancer: Yes Lung Did You Recieve Any Treatments: Yes What Type of Treatment Did You: Chemotherapy, Radiation Psychosocial: No Integumentary: No Blood Disorders: No Adverse Reaction/Blood Tranf: No Family Medical History Cardiovascular disease 19 MOTHER G8 BROTHER G8 BROTHER G8 SISTER Diabetes mellitus G8 BROTHER Glaucoma 19 MOTHER Myocardial infarction G8 BROTHER Review of Systems Time Seen by Provider: 07:08 Sepsis Event Evaluation Height, Weight, BMI Height: 4'10.00" Weight: 124lbs. 0.0oz. 56.497026gv; 24.00 BMI Method: Exam Exam Vital Signs Date Time Temp Pulse Resp B/P (MAP) Pulse Ox O2 Delivery O2 Flow Rate FiO2 01/28/19 04:00 Nasal Cannula 2.00 01/28/19 02:14 99 Nasal Cannula 3.00 01/28/19 01:28 79 01/28/19 00:00 Nasal Cannula 2.00 01/28/19 00:00 83 124/69 (87) 100 Nasal Cannula 2.00 01/27/19 23:59 Nasal Cannula 3.00 01/27/19 23:00 93 21 140/60 (86) 100 Nasal Cannula 2.00 01/27/19 22:54 Nasal Cannula 2.00 01/27/19 22:00 79 20 130/63 (85) 99 Nasal Cannula 2.00 01/27/19 21:00 100 10 121/86 (98) 100 Nasal Cannula 2.00 01/27/19 20:00 Nasal Cannula 2.00 01/27/19 20:00 91 103/87 (92) 100 Nasal Cannula 2.00 01/27/19 19:36 36.6 01/27/19 19:00 104 01/27/19 19:00 104 131/109 (116) 100 Nasal Cannula 2.00 01/27/19 18:00 118 22 141/92 94 Room Air 01/27/19 16:45 135/85 01/27/19 15:20 37.3 116 21 116/93 (101) 97 Room Air I & O 01/28/19 07:00 Intake Total 220 ml Output Total 300 ml Balance -80 ml Height & Weight Height: 4'10.00" Weight: 124lbs. 0.0oz. 56.193921pj; 24.00 BMI Method: General Appearance: No Apparent Distress, WD/WN HEENT: PERRL/EOMI, Pharynx Normal Neck: Full Range of Motion, Normal Inspection, Non Tender Respiratory: Chest Non Tender, No Respiratory Distress, Crackles, Rhonci Cardiovascular: No Edema, No Gallop, No JVD, Normal Peripheral Pulses, Irregularly Irregular, Tachycardia Capillary Refill: Less Than 3 Seconds Extremity: Normal Capillary Refill, Non Tender, No Calf Tenderness Neurologic/Psychiatric: Alert, Oriented x3, No Motor/Sensory Deficits, Normal Mood/Affect Skin: Normal Color, Warm/Dry Results Lab Laboratory Tests 01/27/19 15:40 01/28/19 03:20 Assessment/Plan Assessment/Plan Afib RVR -Cardizem gtt currently -Restart home cardizem -Cardiology consulted - BARBIE was done and showed questionable left atrial appendage thrombus -Continue Eliquis hx of severe oxygen dependent COPD -Continue Oxygen -Duoneb Atelectasis - r/o pneumonia - Pt grew psudomonus last hospitalization -D/C vanco and start Zosyn -No leukocytosis, no fever, -D/C Vanco -Coelho culture Anemia -Monitor pulmonary edema -Monitor Severe mitral regurgitation CAD NICOLÁS BAZZI DO Jan 28, 2019 04:32 POS
[2019-01-28] MEDS ORDERED: POTASSIUM CL 10MEQ/50ML IVPB 50 ML IV SCH (06:00)
[2019-01-28] MEDS ORDERED: KCL 20 MEQ TAB (K-DUR) PO SCH (06:00)
[2019-01-28] MEDS ORDERED: MAGNESIUM 1 GM/100 ML IVPB 100 ML IV SCH (06:00)
[2019-01-28] MEDS: RT-ALBUTEROL/IPRATROPIUM 3 ML (DUONEB) VIAL INH SCH ×5 (06:55→22:06)
[2019-01-28] MEDS: RT-ADVAIR HFA 115/21 MCG PER PUFF IH SCH ×2 (06:57→18:18)
--- NOTE | 2019-01-28 07:23 | Diagnostic Imaging Report ---
CLINICAL INDICATION: Patient with shortness of breath. EXAM: Portable chest x-ray upright view. COMPARISONS: Portable chest x-ray dated 01/27/2019 at 0340 hours. FINDINGS: Stable cardiomegaly with minimal pulmonary vascular congestion which has slightly progressed. There is small right pleural effusion noted which has slightly progressed. There is mild bibasilar atelectasis versus infiltrate. Again seen discoid atelectasis or scarring in the right upper lobe. Stable postsurgical change in the chest with sternotomy wires and mediastinal clips. There are degenerative spurs involving the spine. Tbzhow-[id number]-Ginu overlying the right chest again seen. There is no pneumothorax. IMPRESSION: 1: There is cardiomegaly with slight progression of pulmonary vascular congestion. 2: There is slight progression of a small right pleural effusion. 3: There is mild bibasilar atelectasis versus infiltrate. Dictated by: Dictated on workstation # [id number]
[2019-01-28] MEDS ORDERED: PIPERACILLIN/TAZOBACTAM 4.5 GM in NS (IVPB) 100 ML IV ONE (08:00)
[2019-01-28] MEDS: DILTIAZEM 180 MG (CARDIZEM CD) CAP PO SCH (08:21)
[2019-01-28] MEDS: APIXABAN 5 MG (ELIQUIS) TABLET PO SCH ×2 (08:21→20:41)
[2019-01-28] MEDS ORDERED: ASPIRIN 81 MG CHEW (CHILDREN'S ASA) PO SCH (09:00)
[2019-01-28] MEDS ORDERED: PRD10T PO (09:08)
[2019-01-28] MEDS ORDERED: APIX5TAB PO (09:08)
[2019-01-28] MEDS ORDERED: AMIO200T4 PO (09:12)
[2019-01-28] MEDS ORDERED: DILT-27 PO (09:12)
--- NOTE | 2019-01-28 09:12 | NUR ---
SPOKE WITH THE PATIENT ABOUT HER MEDICATIONS. SHE STATES NOTHING HAS CHANGED SINCE SHE WAS DISCHARGED ON 01-23-19. AT THAT DISCHARGE 4 NEW SCRIPTS WERE SENT TO [facility]. SHE PICKED UP THE ELIQUIS AND PREDNISONE 01-23-19 AND HAS BEEN TAKING THEM PRESCRIBED. 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 SHE STATES YESTERDAY HER SISTER WAS ABLE TO PICK THEM UP BUT SHE DID NOT HAVE A CHANCE TO START TAKING THEM PRIOR TO BEING ADMITTED. SHE DOES HAVE THEM AT HOME NOW SO I LEFT THEM ON THE MED REC. I SPOKE WITH THE PHARMACY WHO STATES THEY ARE NOT SURE WHY THERE WEREN'T ABLE TO BE PICKED UP SATURDAY. THEY DID ALL GO THROUGH THE INSURANCE. SHE PICKED UP THE DILTIAZEM AND AMIODARONE YESTERDAY 01-27-19. THE COPAY THROUGH HER INSURANCE ON ELIQUIS WAS 4.00, THEY DID NOT USE THE COUPON CARD.
--- NOTE | 2019-01-28 09:55 | Consultation-Cardiology ---
HPI-Cardiology Cardiology Consultation: Date of Consultation 01/28/19 Time Seen by a Provider: 08:20 Date of Admission 01-27-19 Attending Physician Sandy Gates MD Admitting Physician Jonah Santillan MD Consulting Physician Kraig Pathak MD Primary Utilities Ground Worker: Dr. Lam HPI: Chief Complaint: A-flutter/fib with RVR Ms. Mg is an 83 year old female who has been admitted to ICU 9 from with c/o increasing SOB and A-fib/flutter with RVR. She states her Home Health nurse came to see her yesterday and noted her HR to be 160's. She states that at the time of her discharge from the hospital a few days ago she was started on Cardizem and the pharmacy had not filled it yet. She denies any c/o CP or palpitations. She has chronic mod dyspnea, but did not feel as though it was any worse than previously. She reports frequent lose cough. She denies any LE swelling. Review of Systems-Cardiology Review of Systems Constitutional: no symptoms reported; No chills, No fever; malaise Eyes: No vision change Ears/Nose/Throat: No epistaxis, No recent hearing loss Respiratory: As described under HPI Cardiovascular: As described under HPI Gastrointestinal: No constipation, No diarrhea, No nausea, No vomiting Genitourinary: No dysuria, No hematuria : No Musculoskeletal: no symptoms reported Skin: No rash on exposed areas, No ulcerations on exposed areas Psychiatric/Neurological: No anxiety, No depression, No seizure, No focal weakness, No syncope Hematologic: No bleeding abnormalities All Other Systems Reviewed Negative Unless Noted: Yes AOQ-Hymjez-Iggczl Hx Patient Social History Alcohol Use: Denies Use Recreational Drug Use: No Smoking Status: Former Smoker Type Used: Cigarettes 2nd Hand Smoke Exposure: No Recent Foreign Travel: No Recent Infectious Disease Expo: No Hospitalization with Isolation: Denies Immunizations Up To Date Date of Pneumonia Vaccine: Jan 15, 2015 Date of Influenza Vaccine: Dec 07, 2016 Past Medical History PMH As described under Assessment. Family Medical History Family Medical History: She reports her mother had CAD. She also reports two brothers and a sister with CAD. Family History: Cardiovascular disease 19 MOTHER G8 BROTHER G8 BROTHER G8 SISTER Diabetes mellitus G8 BROTHER Glaucoma 19 MOTHER Myocardial infarction G8 BROTHER Allergies and Home Medications Allergies Coded Allergies: cilostazol (Verified Allergy, Unknown, 05/28/17) Uncoded Allergies: TAPE (Allergy, Unknown, 05/28/17) Home Medications Apixaban 5 Mg Tablet, 5 MG PO BID, (Reported) Aspirin 81 Mg Tablet.dr, 81 MG PO DAILY, (Reported) Budesonide/Formoterol Fumarate 10.2 Gm Hfa.aer.ad, 2 PUFF IH BID, (Reported) Diltiazem HCl 120 Mg Cap.er.24h, 120 MG PO DAILY, (Reported) PRESCRIBED 01-23-19 BUT NOT PICKED UP UNTIL 01-27-19 Fexofenadine HCl 180 Mg Tablet, 180 MG PO DAILY, (Reported) Gabapentin 300 Mg Capsule, 300 MG PO BID, (Reported) Ipratropium/Albuterol Sulfate 3 Ml Ampul.neb, 3 ML NEB QID PRN for SHORTNESS OF BREATH, (Reported) Isosorbide Mononitrate 30 Mg Tab.er.24h, 30 MG PO DAILY, (Reported) Lovastatin 20 Mg Tablet, 20 MG PO HS, (Reported) Magnesium Oxide 400 Mg Tablet, 400 MG PO DAILY, (Reported) Montelukast Sodium 10 Mg Tablet, 10 MG PO HS, (Reported) Mv-Mn/FA/Coq10/Lycopene/Lutein 1 Each Tablet, 1 TAB PO DAILY, (Reported) Timolol Maleate 5 Ml Drops, 1 DROP OU HS, (Reported) Patient Home Medication List Home Medication List Reviewed: Yes Physical Exam-Cardiology Physical Exam Vital Signs/I&O Capillary Refill : Less Than 3 Seconds Constitutional: AAO x 3, well-developed, well-nourished HEENT: PERRL, hard of hearing Neck: No carotid bruit; carotid pulses are 2 + bilaterally Respiratory: rhonchi (scattered; coarse lung sounds with frequent cough) Cardiovascular: irregularly irregular; No JVD; S1 and S2, systolic murmur Gastrointestinal: No tender; soft, round, audible bowel sounds Rectal: deferred Extremities: no lower extremity edema bilateral Neurologic/Psychiatric: grossly intact (moves all extremities) Skin: No rash on exposed areas, No ulcerations on exposed areas Data Review Labs Microbiology 01/28/19 Blood Culture - Final, Complete No growth 01/28/19 Gram Stain - Final, Complete 01/28/19 Sputum Culture - Final, Complete YEAST Usual upper respiratory gerry Radiology NAME: DAVI MG [facility] REC#: [id number] PT STATUS: ADM IN : 1935 PHYSICIAN: NICOLÁS BAZZI DO ADMIT DATE: 01/27/19/ICU Draft Date of Exam:01/28/19 CHEST 1 VIEW, AP/PA ONLY CLINICAL INDICATION: Patient with shortness of breath. EXAM: Portable chest x-ray upright view. COMPARISONS: Portable chest x-ray dated 01/27/2019 at 0340 hours. FINDINGS: Stable cardiomegaly with minimal pulmonary vascular congestion which has slightly progressed. There is small right pleural effusion noted which has slightly progressed. There is mild bibasilar atelectasis versus infiltrate. Again seen discoid atelectasis or scarring in the right upper lobe. Stable postsurgical change in the chest with sternotomy wires and mediastinal clips. There are degenerative spurs involving the spine. Kefbzn-j-Yvmf overlying the right chest again seen. There is no pneumothorax. IMPRESSION: 1: There is cardiomegaly with slight progression of pulmonary vascular congestion. 2: There is slight progression of a small right pleural effusion. 3: There is mild bibasilar atelectasis versus infiltrate. Dictated on workstation # [id number] Dict: 01/28/19717 Trans: 01/28/19722 [id number] Interpreted by: NAYELI AZEVEDO MD Electronically signed by: ECG Impression ECG Initial ECG Impression: Atrial Fibrillation w/RVR A/P-Cardiology Assessment/Admission Diagnosis Multi-factorial dyspnea (noted below) Acute exacerbation of COPD Pneumonia - management per medical/pulmonary services A-fib/flutter with RVR - H/O paroxysmal atrial fibrillation - rate currently controlled Acute on chronic diastolic CHF Type 2 AL likely secondary to a-fib/flutter with RVR BARBIE by Dr. Lam on 01-20-19 showed dilated LA with echo density in LA suggestive of thrombus Echo by Dr. Lam on 01-16-19 showed LVEF 55-65%. Severe MR and mod TR. Grade 2 diastolic dysfunction Severe mitral regurgitation noted on 2-D Echo with dilated left atrium, Dr. Hurst has previously discussed with the patient, she could benefit from mitral valve clip - she will f/u with Dr. Lam as an out pt Coronary artery disease, history of CABG 3 done in 1986 Hypertension Hyperlipidemia Discussion and Recomendations Complex management issue with multi-factorial dyspnea for reasons as noted above Remains a-fib/flutter with controlled HR on Cardizem gtt - stop gtt and start oral Cardizem Continue OAC with Eliquis Will not resume Amiodarone since she converted back to a-fib/flutter and possible clot in the LA seen at the time of BARBIE IV diuretics Monitor lab closely Management of COPD/pneumonia is with pulmonary/medical services Further recs will be based on her hospital course We would like to thank medical services for this consult Clinical Quality Measures DVT/VTE Risk/Contraindication: Risk Factor Score Per Nursin RFS Level Per Nursing on Admit: 4+=Very High [address] Jan 28, 2019 09:55 POS
[2019-01-28] MEDS ORDERED: FUROSEMIDE 40 MG/4 ML INJ (LASIX) IVP NR (10:16)
--- NOTE | 2019-01-28 11:48 | History & Physical-Hospitalist ---
History of Present Illness HPI/Chief Complaint Anne Du is an 83yoF with PMH HTN, HLD, HFpEF, mitral regurgitation, NSCLC, CAD s/p CABG 1986, anemia, who presented with tachycardia and was found to have AFib with RVR. She reports that since her discharge she has not been taking her Amiodarone or her Cardizem. She picked up the Eliquis, but the other meds were n ot available. She picked them up yesterday but wasn't able to start them because she got admitted to the hospital. She reports chronic shortness of breath which is unchanged. She has no cough. She denies fevers and chills. She denies abdominal pain, nausea, vomiting, diarrhea. Source: patient Exam Limitations: no limitations Date Seen 01/28/19 Time Seen by a Provider: 08:45 Attending Physician Myrna Harrell MD PCP Jonah Santillan MD Referring Physician Date of Admission Jan 27, 2019 at 16:59 Home Medications & Allergies Home Medications Reviewed patient Home Medication Reconciliation performed by pharmacy medication reconciliations entry level installation technician and/or nursing. Patients Allergies have been reviewed. Allergies Allergies Coded Allergies cilostazol (Verified Allergy, Unknown, 05/28/17) Uncoded Allergies TAPE ( Allergy, Unknown, 05/28/17) Past Vxwrbkk-Ynwqnj-Rtajoa Hx Past Med/Social Hx: Reviewed Nursing Past Med/Soc Hx Patient Social History Alcohol Use: Denies Use Recreational Drug Use: No Smoking Status: Former Smoker Former Smoker, Quit: Apr 29, 2017 Type Used: Cigarettes 2nd Hand Smoke Exposure: No Recent Foreign Travel: No Contact w/other who traveled: No Recent Hopitalizations: Yes (apr 2017 cancer) Recent Infectious Disease Expo: No Immunizations Up To Date Pediatric: No Date of Pneumonia Vaccine: Jan 15, 2015 Date of Influenza Vaccine: Dec 07, 2016 Seasonal Allergies Seasonal Allergies: Yes Past Medical History Surgeries: Angioplasty, CABG, Hysterectomy Currently Using CPAP: No Currently Using BIPAP: No Cardiac: Hypertension Neurological: Headaches /Migraines Hysterectomy Gastrointestinal: Irritable Bowel Musculoskeletal: Arthritis HEENT: Glaucoma Hearing Impairment: Hard of Hearing Cancer: Lung Did You Recieve Any Treatments: Yes What Type of Treatment Did You: Chemotherapy, Radiation History of Blood Disorders: No Adverse Reaction to Blood Obrien: No Family History Cardiovascular disease 19 MOTHER G8 BROTHER G8 BROTHER G8 SISTER Diabetes mellitus G8 BROTHER Glaucoma 19 MOTHER Myocardial infarction G8 BROTHER Review of Systems Constitutional: no symptoms reported EENTM: no symptoms reported Respiratory: no symptoms reported Cardiovascular: no symptoms reported Gastrointestinal: no symptoms reported Genitourinary: no symptoms reported Musculoskeletal: no symptoms reported Skin: no symptoms reported Psychiatric/Neurological: No Symptoms Reported Physical Exam Physical Exam Vital Signs Vital Signs - First Documented 01/27/19 15:20 Temp 37.3 Pulse 116 Resp 21 B/P (MAP) 116/93 (101) Pulse Ox 97 O2 Delivery Room Air Capillary Refill : Less Than 3 Seconds Height, Weight, BMI Height: 4'10.00" Weight: 124lbs. 0.0oz. 56.130101km; 24.00 BMI Method: General Appearance: No Apparent Distress, WD/WN, Chronically ill HEENT: PERRL/EOMI, Pharynx Normal Neck: Normal Inspection, Supple Respiratory: Lungs Clear, Normal Breath Sounds, No Respiratory Distress, Other (wearing nasal cannula) Cardiovascular: No Edema, No Murmur, Irregularly Irregular Gastrointestinal: Normal Bowel Sounds, Non Tender, Soft Extremity: Normal Inspection, Non Tender, No Pedal Edema Neurologic/Psychiatric: Alert, Oriented x3, No Motor/Sensory Deficits, Normal Mood/Affect Skin: Normal Color, Warm/Dry Results Results/Procedures Labs Laboratory Tests 01/27/19 15:40 01/28/19 03:20 Patient resulted labs reviewed. Imaging: Reviewed Imaging Report Assessment/Plan Admission Diagnosis AFib with RVR Admission Status: Inpatient Order (span 2 midnights) Reason for Inpatient Admission: IV medications Assessment and Plan AFib with RVR Elevated troponin -Troponin likely elevated secondary to AFib with RVR causing demand ischemia -Started on Cardizem gtt -Transitioned to oral Cardizem -Continue Eliquis -Cardiology consulted, appreciate recommendations -Stop Amiodarone Concern for HCAP Atelectasis -Bibasilar infiltrates on xray unchanged from prior -Procalcitonin normal -No fever and normal WBC -Stop antibiotics -Continue MAT protocol for atelectasis COPD without exacerbation -MAT protocol Anemia -Chronic, stable -Continue to monitor CAD HFpEF Mitral regurgitation -Stable, continue home meds NSCLC -Clinically significant, no acute management needs -Not currently on chemotherapy DVT Prophylaxis: already receiving therapeutic anticoagulation Diagnosis/Problems Diagnosis/Problems (1) Atrial fibrillation with RVR Status: Acute (2) Elevated troponin Status: Acute (3) COPD without exacerbation Status: Chronic (4) Chronic heart failure with preserved ejection fraction (HFpEF) Status: Chronic (5) Chronic hypoxemic respiratory failure Status: Chronic (6) CAD (coronary artery disease) Status: Chronic Clinical Quality Measures DVT/VTE Risk/Contraindication: Risk Factor Score Per Nursin RFS Level Per Nursing on Admit: 4+=Very High MYRNA HARRELL MD Jan 28, 2019 11:48 POS
--- NOTE | 2019-01-28 13:42 | NUR ---
REPORT TAKEN FROM JANE REGALADO FROM ICU AT THIS TIME. THIS RN WILL ASSUME CARE OF THIS PATIENT WHEN SHE ARRIVES TO THIS FLOOR.
[2019-01-28] MEDS ORDERED: PIPERACILLIN/TAZO 4.5 GM/NS 100 ML IV SCH ×2 (14:00)
--- NOTE | 2019-01-28 14:00 | NUR ---
PATIENT TO FLOOR AT 1400 VIA W/C ACCOMPANIED BY JANE REGALADO.
--- NOTE | 2019-01-28 14:00 | NUR ---
1345 PT TO ROOM 433 VIA W/C ACCOMPANIED BY THIS RN, ALL PERSONAL BELONGINGS SENT WITH PT, PT TAKEN WITH 02 AT 2 LITERS, REPORT GIVEN PRIOR TO TRANSFER TO [facility].
--- NOTE | 2019-01-28 20:06 | Consultation-Cardiology ---
HPI-Cardiology Cardiology Consultation: Date of Consultation 01/28/19 Time Seen by a Provider: 09:00 Date of Admission Attending Physician Sandy Gates MD Admitting Physician Jonah Santillan MD Consulting Physician JORGE FRIEDMAN MD, MA, FACP, FACC, FSCAI, CCDS HPI: Chief Complaint: Reason for consultation: A-flutter/fib with RVR HPI Ms. Du is an 83 year old female who has been admitted to ICU 9 from with c/o increasing SOB and A-fib/flutter with RVR. She states her Home Health nurse came to see her yesterday and noted her HR to be 160's. She states that at the time of her discharge from the hospital a few days ago she was started on Cardizem and the pharmacy had not filled it yet. She denies any c/o CP or palpitations. She has chronic mod dyspnea, but did not feel as though it was any worse than previously. She reports frequent lose cough. She denies any LE swelling. Review of Systems-Cardiology Review of Systems Constitutional: no symptoms reported; No chills, No fever; malaise Eyes: No vision change Ears/Nose/Throat: No epistaxis, No recent hearing loss Respiratory: As described under HPI Cardiovascular: As described under HPI Gastrointestinal: No constipation, No diarrhea, No nausea, No vomiting Genitourinary: No dysuria, No hematuria : No Musculoskeletal: no symptoms reported Skin: No rash on exposed areas, No ulcerations on exposed areas Psychiatric/Neurological: No anxiety, No depression, No seizure, No focal weakness, No syncope Hematologic: No bleeding abnormalities All Other Systems Reviewed Negative Unless Noted: Yes IBE-Hnzgjp-Lrbzym Hx Patient Social History Alcohol Use: Denies Use Recreational Drug Use: No Smoking Status: Former Smoker Type Used: Cigarettes 2nd Hand Smoke Exposure: No Recent Foreign Travel: No Recent Infectious Disease Expo: No Hospitalization with Isolation: Denies Immunizations Up To Date Date of Pneumonia Vaccine: Jan 15, 2015 Date of Influenza Vaccine: Dec 07, 2016 Past Medical History PMH As described under Assessment. Family Medical History Family Medical History: She reports her mother had CAD. She also reports two brothers and a sister with CAD. Family History: Cardiovascular disease 19 MOTHER G8 BROTHER G8 BROTHER G8 SISTER Diabetes mellitus G8 BROTHER Glaucoma 19 MOTHER Myocardial infarction G8 BROTHER Allergies and Home Medications Allergies Coded Allergies: cilostazol (Verified Allergy, Unknown, 05/28/17) Uncoded Allergies: TAPE (Allergy, Unknown, 05/28/17) Home Medications Amiodarone HCl 200 Mg Tablet, 400 MG PO BID, (Reported) PRESCRIBED 01-23-19 BUT NOT PICKED UP UNTIL 01-27-19 TAKES 2 (200MG) TABLETS Apixaban 5 Mg Tablet, 5 MG PO BID, (Reported) Aspirin 81 Mg Tablet.dr, 81 MG PO DAILY, (Reported) Budesonide/Formoterol Fumarate 10.2 Gm Hfa.aer.ad, 2 PUFF IH BID, (Reported) Diltiazem HCl 120 Mg Cap.er.24h, 120 MG PO DAILY, (Reported) PRESCRIBED 01-23-19 BUT NOT PICKED UP UNTIL 01-27-19 Fexofenadine HCl 180 Mg Tablet, 180 MG PO DAILY, (Reported) Gabapentin 300 Mg Capsule, 300 MG PO BID, (Reported) Ipratropium/Albuterol Sulfate 3 Ml Ampul.neb, 3 ML NEB QID PRN for SHORTNESS OF BREATH, (Reported) Isosorbide Mononitrate 30 Mg Tab.er.24h, 30 MG PO DAILY, (Reported) Lovastatin 20 Mg Tablet, 20 MG PO HS, (Reported) Magnesium Oxide 400 Mg Tablet, 400 MG PO DAILY, (Reported) Montelukast Sodium 10 Mg Tablet, 10 MG PO HS, (Reported) Mv-Mn/FA/Coq10/Lycopene/Lutein 1 Each Tablet, 1 TAB PO DAILY, (Reported) Prednisone 10 Mg Tab, PO UD, (Reported) FILLED 12 DAY SUPPLY 01-23-19 TAKE 6 TABS DAY 1 THEN DECREASE BY 1 TAB EVERY OTHER DAY Timolol Maleate 5 Ml Drops, 1 DROP OU HS, (Reported) Patient Home Medication List Home Medication List Reviewed: Yes Physical Exam-Cardiology Physical Exam Vital Signs/I&O 01/28/19 01/28/19 01/28/19 01/28/19 09:00 10:00 11:00 12:00 Pulse 67 69 93 99 Resp 20 11 34 23 B/P (MAP) 121/51 (74) 133/68 (89) 144/78 (100) 144/119 (127) Pulse Ox 100 98 O2 Delivery Nasal Cannula Nasal Cannula Nasal Cannula Nasal Cannula O2 Flow Rate 2.00 2.00 2.00 2.00 01/28/19 01/28/19 01/28/19 01/28/19 12:35 13:00 13:00 14:10 Temp 36.3 Pulse 78 70 75 Resp 22 20 B/P (MAP) 135/82 (99) 91/55 (67) Pulse Ox 65 100 O2 Delivery Nasal Cannula Nasal Cannula Nasal Cannula O2 Flow Rate 2.00 2.00 2.00 01/28/19 01/28/19 01/28/19 01/28/19 15:19 16:00 18:19 18:20 Temp 36.6 Pulse 70 Resp 20 B/P (MAP) 129/72 (91) Pulse Ox 93 100 93 93 O2 Delivery Nasal Cannula Nasal Cannula Nasal Cannula Nasal Cannula O2 Flow Rate 2.00 2.00 2.00 2.00 01/28/19 19:00 Pulse 70 01/28/19 00:00 Intake Total 220 ml Output Total 300 ml Balance -80 ml Capillary Refill : Less Than 3 Seconds Constitutional: AAO x 3, well-developed, well-nourished HEENT: PERRL, hard of hearing Neck: No carotid bruit; carotid pulses are 2 + bilaterally Respiratory: rhonchi (scattered; coarse lung sounds with frequent cough) Cardiovascular: irregularly irregular; No JVD; S1 and S2, systolic murmur Gastrointestinal: No tender; soft, round, audible bowel sounds Rectal: deferred Extremities: no lower extremity edema bilateral Neurologic/Psychiatric: grossly intact (moves all extremities) Skin: No rash on exposed areas, No ulcerations on exposed areas Data Review Labs Laboratory Tests 01/28/19 03:20: White Blood Count 9.0, Red Blood Count 3.22L, Hemoglobin 9.3L, Hematocrit 31L, Mean Corpuscular Volume 98, Mean Corpuscular Hemoglobin 29, Mean Corpuscular Hemoglobin Concent 30L, Red Cell Distribution Width 13.2, Platelet Count 214, Mean Platelet Volume 10.4, Neutrophils (%) (Auto) 85H, Lymphocytes (%) (Auto) 8L , Monocytes (%) (Auto) 7, Eosinophils (%) (Auto) 0, Basophils (%) (Auto) 0, Neutrophils # (Auto) 7.6, Lymphocytes # (Auto) 0.7L, Monocytes # (Auto) 0.6, Eosinophils # (Auto) 0.0, Basophils # (Auto) 0.0, Sodium Level 141, Potassium Level 4.2, Chloride Level 102, Carbon Dioxide Level 31, Anion Gap 8, Blood Urea Nitrogen 22H, Creatinine 0.84, Estimat Glomerular Filtration Rate > 60, BUN/Creatinine Ratio 26, Glucose Level 120H, Calcium Level 8.4L, Phosphorus Level 2.2L, Magnesium Level 1.9, Troponin I 0.063H, B-Type Natriuretic Peptide 564.6H, Procalcitonin 0.03 01/28/19 04:18: Lactic Acid Level 0.67 Microbiology 01/28/19 Gram Stain - Final, Resulted 01/28/19 Sputum Culture, Resulted Pending A/P-Cardiology Assessment/Admission Diagnosis Multi-factorial dyspnea (noted below) Acute exacerbation of COPD Pneumonia - management per medical/pulmonary services A-fib/flutter with RVR - H/O paroxysmal atrial fibrillation - rate currently controlled Acute on chronic diastolic CHF Type 2 [place] likely secondary to a-fib/flutter with RVR BARBIE by Dr. Lam on 01-20-19 showed dilated LA with echo density in LA suggestive of thrombus Echo by Dr. Lam on 01-16-19 showed LVEF 55-65%. Severe MR and mod TR. Grade 2 diastolic dysfunction Severe mitral regurgitation noted on 2-D Echo with dilated left atrium, Dr. Hurst has previously discussed with the patient, she could benefit from mitral valve clip - she will f/u with Dr. Lam as an out pt Coronary artery disease, history of CABG 3 done in 1986 Hypertension Hyperlipidemia Discussion and Recomendations Complex management issue with multi-factorial dyspnea for reasons as noted above Remains a-fib/flutter with controlled HR on Cardizem gtt - stop gtt and start oral Cardizem Continue OAC with Eliquis Will not resume Amiodarone since she converted back to a-fib/flutter and possible clot in the LA seen at the time of BARBEI IV diuretics Monitor lab closely Management of COPD/pneumonia is with pulmonary/medical services Further recs will be based on her hospital course We would like to thank medical services for this consult Clinical Quality Measures DVT/VTE Risk/Contraindication: Risk Factor Score Per Nursin RFS Level Per Nursing on Admit: 4+=Very High JORGE FRIEDMAN MD FAC [facility] Jan 28, 2019 20:06 POS
[2019-01-29] VITALS (7 sets, daily range): BP systolic 117–143; BP diastolic 53–88
[2019-01-29] MEDS: RT-ALBUTEROL/IPRATROPIUM 3 ML (DUONEB) VIAL INH SCH ×6 (02:49→21:44)
--- NOTE | 2019-01-29 04:29 | Pulmonary Progress Note ---
Subjective Time Seen by a Provider: 07:09 Sepsis Event Evaluation Height, Weight, BMI Height: 4'10.00" Weight: 124lbs. 0.0oz. 56.285937kf; 24.00 BMI Method: Focused Exam Lactate Level 01/27/19 15:40: Lactic Acid Level 2.64*H 01/28/19 04:18: Lactic Acid Level 0.67 Exam Exam Vital Signs Date Time Temp Pulse Resp B/P (MAP) Pulse Ox O2 Delivery O2 Flow Rate FiO2 01/29/19 02:50 96 Nasal Cannula 2.00 01/29/19 01:00 93 01/29/19 00:10 36.3 92 18 123/73 (90) 98 Nasal Cannula 2.00 2.00 01/28/19 22:06 96 Nasal Cannula 2.00 01/28/19 21:00 93 Nasal Cannula 2.00 01/28/19 19:30 36.4 52 20 108/50 (69) 99 Nasal Cannula 2.00 01/28/19 19:00 70 01/28/19 18:20 93 Nasal Cannula 2.00 01/28/19 18:19 93 Nasal Cannula 2.00 01/28/19 16:00 36.6 70 20 129/72 (91) 100 Nasal Cannula 2.00 01/28/19 15:19 93 Nasal Cannula 2.00 01/28/19 14:10 36.3 75 20 91/55 (67) 100 Nasal Cannula 2.00 01/28/19 13:00 70 22 135/82 (99) 65 Nasal Cannula 2.00 01/28/19 13:00 78 01/28/19 12:35 Nasal Cannula 2.00 01/28/19 12:00 99 23 144/119 (127) Nasal Cannula 2.00 01/28/19 11:00 93 34 144/78 (100) Nasal Cannula 2.00 01/28/19 10:00 69 11 133/68 (89) 98 Nasal Cannula 2.00 01/28/19 09:00 67 20 121/51 (74) 100 Nasal Cannula 2.00 01/28/19 08:00 Nasal Cannula 2.00 01/28/19 08:00 68 25 143/74 (97) 61 Nasal Cannula 2.00 01/28/19 07:00 89 146/102 (117) 85 Nasal Cannula 2.00 01/28/19 07:00 82 01/28/19 06:55 96 Nasal Cannula 3.00 01/28/19 06:00 66 141/80 (100) 100 Nasal Cannula 2.00 01/28/19 05:00 78 99 Nasal Cannula 2.00 I & O 01/29/19 07:00 Intake Total 1020 ml Output Total 1950 ml Balance -930 ml Height & Weight Height: 4'10.00" Weight: 124lbs. 0.0oz. 56.906505tr; 24.00 BMI Method: General Appearance: No Apparent Distress, WD/WN, Chronically ill HEENT: PERRL/EOMI, Pharynx Normal Neck: Normal Inspection, Supple Respiratory: Lungs Clear, Normal Breath Sounds, No Respiratory Distress, Other (wearing nasal cannula) Cardiovascular: No Edema, No Murmur, Irregularly Irregular Capillary Refill: Less Than 3 Seconds Extremity: Normal Inspection, Non Tender, No Pedal Edema Neurologic/Psychiatric: Alert, Oriented x3, No Motor/Sensory Deficits, Normal Mood/Affect Skin: Normal Color, Warm/Dry Results Lab Laboratory Tests 01/27/19 15:40 01/28/19 03:20 Assessment/Plan Assessment/Plan hx of severe oxygen dependent COPD -Continue Oxygen -Duoneb Afib -Cardiology consulted Atelectasis - r/o pneumonia - Pt grew psudomonus last hospitalization -Zosyn -Coelho culture Anemia -Monitor pulmonary edema -Monitor Severe mitral regurgitation NICOLÁS BIRCH DO Jan 29, 2019 04:29 POS
[2019-01-29 06:13] LABS: CALCIUM 8.8 MG/DL (8.5-10.1); CREATININE SERUM 0.93 MG/DL (0.60-1.30); MAGNESIUM 1.8 MG/DL (1.6-2.4); PHOSPHORUS 3.1 MG/DL (2.3-4.7); POTASSIUM 4.4 MMOL/L (3.6-5.0)
[2019-01-29] MEDS: RT-ADVAIR HFA 115/21 MCG PER PUFF IH SCH ×2 (07:15→18:47)
[2019-01-29] MEDS: DILTIAZEM 180 MG (CARDIZEM CD) CAP PO SCH (09:24)
[2019-01-29] MEDS: ISOSORBIDE MONONITRATE 30 MG (IMDUR) TAB PO SCH (09:24)
[2019-01-29] MEDS: APIXABAN 5 MG (ELIQUIS) TABLET PO SCH ×2 (09:24→20:57)
[2019-01-29] MEDS: ASPIRIN E.C. 81 MG (ECOTRIN) TAB PO SCH (09:24)
[2019-01-29] MEDS: FUROSEMIDE 40 MG (LASIX) TAB PO SCH (09:24)
--- NOTE | 2019-01-29 11:10 | Progress Note - Hospitalist ---
Subjective HPI/CC On Admission Date Seen by Provider: Jan 29, 2019 Time Seen by Provider: 09:35 Anne Du is an 83yoF with PMH HTN, HLD, HFpEF, mitral regurgitation, NSCLC, CAD s/p CABG 1987, anemia, who presented with tachycardia and was found to have AFib with RVR. She reports that since her discharge she has not been taking her Amiodarone or her Cardizem. She picked up the Eliquis, but the other meds were not available. She picked them up yesterday but wasn't able to start them because she got admitted to the hospital. She reports chronic shortness of breath which is unchanged. She has no cough. She denies fevers and chills. She denies abdominal pain, nausea, vomiting, diarrhea. Subjective/Events-last exam She feels well this morning. She has her glasses on to watch the [employer]. She denies fevers, chills, chest pain, abdominal pain, nausea, and vomiting. Focused Exam Lactate Level 01/27/19 15:40: Lactic Acid Level 2.64*H 01/28/19 04:18: Lactic Acid Level 0.67 Objective Exam Vital Signs Vital Signs Date Time Temp Pulse Resp B/P (MAP) Pulse Ox O2 Delivery O2 Flow Rate FiO2 01/29/19 10:59 91 Nasal Cannula 3.00 01/29/19 08:00 36.6 66 18 125/80 (95) Capillary Refill : Less Than 3 Seconds General Appearance: No Apparent Distress, WD/WN HEENT: PERRL/EOMI, Pharynx Normal, Other (wearing nasal cannula) Neck: Normal Inspection, Supple Respiratory: Lungs Clear, Normal Breath Sounds, No Respiratory Distress Cardiovascular: No Murmur, Irregularly Irregular, Tachycardia Gastrointestinal: Normal Bowel Sounds, Non Tender, Soft Extremity: Normal Inspection, Non Tender, Pedal Edema Neurologic/Psychiatric: Alert, Oriented x3, No Motor/Sensory Deficits, Normal Mood/Affect Skin: Normal Color, Warm/Dry Results/Procedures Lab Laboratory Tests 01/29/19 05:15 Patient resulted labs reviewed. Imaging: Reviewed Imaging Report Assessment/Plan Assessment and Plan Assess & Plan/Chief Complaint AFib with RVR -Continue Cardizem -Continue Eliquis -Cardiology consulted, appreciate recommendations Atelectasis -Bibasilar infiltrates on xray unchanged from prior -Procalcitonin normal -No fever and normal WBC -Antibiotics not indicated -Incentive spirometry COPD without exacerbation -MAT protocol Anemia -Chronic, stable -Continue to monitor CAD HFpEF Mitral regurgitation -Stable, continue home meds NSCLC -Clinically significant, no acute management needs -Not currently on chemotherapy DVT Prophylaxis: already receiving therapeutic anticoagulation Diagnosis/Problems Diagnosis/Problems (1) Atrial fibrillation with RVR Status: Acute (2) Elevated troponin Status: Acute (3) COPD without exacerbation Status: Chronic (4) Chronic heart failure with preserved ejection fraction (HFpEF) Status: Chronic (5) Chronic hypoxemic respiratory failure Status: Chronic (6) CAD (coronary artery disease) Status: Chronic Clinical Quality Measures DVT/VTE Risk/Contraindication: Risk Factor Score Per Nursin RFS Level Per Nursing on Admit: 4+=Very High MYRNA HARRELL MD Jan 29, 2019 11:10 POS
--- NOTE | 2019-01-29 15:35 | Progress Note - Cardiology ---
Cardiology SOAP Progress Note Subjective: She reports that shortness of breath is improving She denies cp No palp or syncope or ankle swelling Objective: I&O/Vital Signs 01/29/19 01/29/19 01/29/19 01/29/19 04:00 06:45 07:15 08:00 Temp 36.6 36.6 Pulse 63 111 66 Resp 20 18 B/P (MAP) 143/67 (92) 125/80 (95) Pulse Ox 92 94 O2 Delivery Nasal Cannula Nasal Cannula Nasal Cannula O2 Flow Rate 2.00 2.00 3.00 01/29/19 01/29/19 01/29/19 01/29/19 09:00 10:59 12:00 12:45 Temp 36.8 Pulse 131 122 Resp 20 B/P (MAP) 123/88 (100) Pulse Ox 91 99 O2 Delivery Nasal Cannula Nasal Cannula Nasal Cannula O2 Flow Rate 2.00 3.00 3.00 01/29/19 15:08 Pulse Ox 96 O2 Delivery Nasal Cannula O2 Flow Rate 3.00 01/29/19 00:00 Intake Total 900 ml Output Total 1800 ml Balance -900 ml Weight (Pounds): 124 Weight (Ounces): 0.0 Weight (Calculated Kilograms): 56.833624 Constitutional: AAO x 3, well-developed, well-nourished Respiratory: rhonchi (scattered; coarse lung sounds with frequent cough) Cardiovascular: irregularly irregular; No JVD; S1 and S2, systolic murmur Gastrointestional: No tender; soft, round, audible bowel sounds Extremities: no lower extremity edema bilateral Neurologic/Psychiatric: grossly intact (moves all extremities) Skin: No rash on exposed areas, No ulcerations on exposed areas Results/Procedures: Labs Laboratory Tests 01/29/19 05:15: Sodium Level 141, Potassium Level 4.4, Chloride Level 100, Carbon Dioxide Level 32, Anion Gap 9, Blood Urea Nitrogen 22H, Creatinine 0.93, Estimat Glomerular Filtration Rate 57, BUN/Creatinine Ratio 24, Glucose Level 88, Calcium Level 8.8, Phosphorus Level 3.1, Magnesium Level 1.8, Procalcitonin 0.03 Microbiology 01/28/19 Gram Stain - Final, Resulted 01/28/19 Sputum Culture, Resulted Pending Laboratory Tests 01/27/19 15:40 01/28/19 03:20 01/29/19 05:15 A/P: Assessment: Multi-factorial dyspnea (noted below) Acute exacerbation of COPD Pneumonia - management per medical/pulmonary services A-fib/flutter with RVR - H/O paroxysmal atrial fibrillation - rate currently controlled Acute on chronic diastolic CHF Type 2 [place] likely secondary to a-fib/flutter with RVR BARBIE by Dr. Lam on 01-20-19 showed dilated LA with echo density in LA suggestive of thrombus Echo by Dr. Lam on 01-16-19 showed LVEF 55-65%. Severe MR and mod TR. Grade 2 diastolic dysfunction Severe mitral regurgitation noted on 2-D Echo with dilated left atrium, Dr. Hurst has previously discussed with the patient that she could benefit from mitral valve clip - she will f/u with Dr. Lam as an out pt Coronary artery disease, history of CABG 3 done in 1986 Hypertension Hyperlipidemia Plan: * Continue oral dilt and apixaban * Monitor and correct labs * Ok for d/c from cardiac standpoint. F/u with Dr Lam in 1-2 weeks after d/c JORGE FRIEDMAN MD FACP FAC CCDS Jan 29, 2019 15:35 POS
[2019-01-30] MEDS: RT-ALBUTEROL/IPRATROPIUM 3 ML (DUONEB) VIAL INH SCH ×3 (02:58→09:50)
[2019-01-30 04:13] VITALS: BP 125/76
[2019-01-30 06:01] LABS: CALCIUM 9.1 MG/DL (8.5-10.1); CREATININE SERUM 1.01 MG/DL (0.60-1.30); MAGNESIUM 1.8 MG/DL (1.6-2.4); PHOSPHORUS 3.3 MG/DL (2.3-4.7); POTASSIUM 4.3 MMOL/L (3.6-5.0)
[2019-01-30] MEDS: RT-ADVAIR HFA 115/21 MCG PER PUFF IH SCH (06:27)
--- NOTE | 2019-01-30 06:43 | Pulmonary Progress Note ---
Subjective Time Seen by a Provider: 06:41 Subjective/Events-last exam No complications noted. Sepsis Event Evaluation Height, Weight, BMI Height: 4'10.00" Weight: 124lbs. 0.0oz. 56.273074mz; 24.00 BMI Method: Focused Exam Lactate Level 01/27/19 15:40: Lactic Acid Level 2.64*H 01/28/19 04:18: Lactic Acid Level 0.67 Exam Exam Vital Signs Date Time Temp Pulse Resp B/P (MAP) Pulse Ox O2 Delivery O2 Flow Rate FiO2 01/30/19 06:27 97 Nasal Cannula 3.00 01/30/19 04:13 37.0 61 20 125/76 (92) 96 Nasal Cannula 3.00 01/30/19 02:58 97 Nasal Cannula 3.00 01/30/19 01:00 84 01/29/19 23:59 36.9 62 20 134/61 (85) 100 Nasal Cannula 3.00 01/29/19 21:44 96 Nasal Cannula 3.00 01/29/19 21:00 96 Nasal Cannula 3.00 01/29/19 20:00 37.2 62 20 120/61 (80) 99 Nasal Cannula 3.00 01/29/19 19:00 80 01/29/19 18:47 98 Nasal Cannula 3.00 01/29/19 16:00 37.4 71 20 117/53 (74) 99 Nasal Cannula 3.00 01/29/19 15:08 96 Nasal Cannula 3.00 01/29/19 12:45 122 01/29/19 12:00 36.8 131 20 123/88 (100) 99 Nasal Cannula 3.00 01/29/19 10:59 91 Nasal Cannula 3.00 01/29/19 09:00 Nasal Cannula 2.00 01/29/19 08:00 36.6 66 18 125/80 (95) 94 Nasal Cannula 3.00 01/29/19 07:15 92 Nasal Cannula 2.00 01/29/19 06:45 111 I & O 01/30/19 07:00 Intake Total 1480 ml Output Total 2000 ml Balance -520 ml Height & Weight Height: 4'10.00" Weight: 124lbs. 0.0oz. 56.884388iv; 24.00 BMI Method: General Appearance: No Apparent Distress, WD/WN HEENT: PERRL/EOMI, Pharynx Normal, Other (wearing nasal cannula) Neck: Normal Inspection, Supple Respiratory: Lungs Clear, Normal Breath Sounds, No Respiratory Distress Cardiovascular: No Murmur, Irregularly Irregular, Tachycardia Capillary Refill: Less Than 3 Seconds Extremity: Normal Inspection, Non Tender, Pedal Edema Neurologic/Psychiatric: Alert, Oriented x3, No Motor/Sensory Deficits, Normal Mood/Affect Skin: Normal Color, Warm/Dry Results Lab Laboratory Tests 01/29/19 05:15 01/30/19 05:13 Assessment/Plan Assessment/Plan hx of severe oxygen dependent COPD -Continue Oxygen -Duoneb Afib -Cardiology consulted Atelectasis - -Coelho culture Anemia -Monitor pulmonary edema -Monitor Severe mitral regurgitation CAD HX NSCLC -Not currently on chemotherapy NICOLÁS BAZZI DO Jan 30, 2019 06:43 POS
[2019-01-30 08:00] VITALS: BP 131/66
[2019-01-30] MEDS: ISOSORBIDE MONONITRATE 30 MG (IMDUR) TAB PO SCH (08:35)
[2019-01-30] MEDS: ASPIRIN E.C. 81 MG (ECOTRIN) TAB PO SCH (08:35)
[2019-01-30] MEDS: FUROSEMIDE 40 MG (LASIX) TAB PO SCH (08:35)
[2019-01-30] MEDS: APIXABAN 5 MG (ELIQUIS) TABLET PO SCH (08:35)
[2019-01-30] MEDS: DILTIAZEM 180 MG (CARDIZEM CD) CAP PO SCH (08:35)
--- NOTE | 2019-01-30 11:01 | Discharge Summary ---
Discharge Summary Hospital Course Was the Problem List Reviewed?: Yes Problems/Dx: (1) Atrial fibrillation with RVR Status: Acute (2) Elevated troponin Status: Acute (3) COPD without exacerbation Status: Chronic (4) Chronic heart failure with preserved ejection fraction (HFpEF) Status: Chronic (5) Chronic hypoxemic respiratory failure Status: Chronic (6) CAD (coronary artery disease) Status: Chronic Hospital Course Date of Admission: Jan 27, 2019 at 16:59 Admission Diagnosis : Paroxysmal atrial fibrillation with rapid ventricular response Family Physician/Provider: Odalys Torres MD Date of Discharge: 01/30/19 Discharge Diagnosis: Paroxysmal atrial fibrillation with rapid ventricular response Hospital Course: Anne Du is an 83yoF with PMH COPD, CAD, HFpEF, AFib, who was admitted with AFib with RVR. She had been discharged about a week ago, but the pharmacy did not have her medicine ready. She never started her Cardizem or Amiodarone. She had been taking her Eliquis. She was restarted on Cardizem and her symptoms res olved. She will continue Cardizem and Eliquis. Amiodarone was discontinued. She already has follow ups scheduled with Lawson Loaiza, and Tyrell. Labs and Pending Lab Test: Laboratory Tests 01/30/19 05:13: Sodium Level 138, Potassium Level 4.3, Chloride Level 99, Carbon Dioxide Level 28, Anion Gap 11, Blood Urea Nitrogen 20H, Creatinine 1.01, Estimat Glomerular Filtration Rate 52, BUN/Creatinine Ratio 20, Glucose Level 102, Calcium Level 9.1, Phosphorus Level 3.3, Magnesium Level 1.8 Microbiology 01/28/19 Blood Culture - Preliminary, Resulted No growth 01/28/19 Gram Stain - Final, Resulted 01/28/19 Sputum Culture - Preliminary, Resulted Usual upper respiratory gerry Home Meds Active Reported Amiodarone HCl 200 Mg Tablet 400 Mg PO BID PRESCRIBED 01-23-19 BUT NOT PICKED UP UNTIL 01-27-19 TAKES 2 (200MG) TABLETS Diltiazem 24Hr ER (Diltiazem HCl) 120 Mg Cap.er.24h 120 Mg PO DAILY PRESCRIBED 01-23-19 BUT NOT PICKED UP UNTIL 01-27-19 Eliquis (Apixaban) 5 Mg Tablet 5 Mg PO BID Prednisone 10 Mg Tab PO UD 12 Days FILLED 12 DAY SUPPLY 11-22-19 TAKE 6 TABS DAY 1 THEN DECREASE BY 1 TAB EVERY OTHER DAY Iprat-Albut 0.5-3(2.5) mg/3 ml (Ipratropium/Albuterol Sulfate) 3 Ml Ampul.neb 3 Ml NEB QID PRN Aspirin EC (Aspirin) 81 Mg Tablet.dr 81 Mg PO DAILY Magnesium Oxide 400 Mg Tablet 400 Mg PO DAILY Montelukast Sodium 10 Mg Tablet 10 Mg PO HS Fexofenadine HCl 180 Mg Tablet 180 Mg PO DAILY Gabapentin 300 Mg Capsule 300 Mg PO BID Isosorbide Mononitrate ER (Isosorbide Mononitrate) 30 Mg Tab.er.24h 30 Mg PO DAILY Timolol Maleate 0.5% (Timolol Maleate) 5 Ml Drops 1 Drop OU HS Theragran-M Premier 50+ Caplet (Mv-Mn/FA/Coq10/Lycopene/Lutein) 1 Each Tablet 1 Tab PO DAILY Symbicort 160-4.5 Mcg Inhaler (Budesonide/Formoterol Fumarate) 10.2 Gm H fa.aer.ad 2 Puff IH BID Lovastatin 20 Mg Tablet 20 Mg PO HS Assessment/Pt Instructions Take medications as prescribed. Begin Cardizem. Continue Eliquis. Do not take Amiodarone. Follow up as scheduled with Lawson Loaiza, and [facility]rell. Discharge Planning: <30 minutes discharge planning Discharge Instructions Discharge Diet: No Restrictions Activity as Tolerated: Yes Discharge Physical Examination Vital Signs Vital Signs Date Time Temp Pulse Resp B/P (MAP) Pulse Ox O2 Delivery O2 Flow Rate FiO2 01/30/19 09:51 97 Nasal Cannula 3.00 01/30/19 08:00 36.6 59 20 131/66 (87) General Appearance: No Apparent Distress, WD/WN HEENT: PERRL/EOMI, Pharynx Normal Respiratory: Lungs Clear, Normal Breath Sounds, No Respiratory Distress Cardiovascular: Irregularly Irregular, Other (regular rate, systolic murmur) Gastrointestinal: Normal Bowel Sounds, Non Tender, Soft Extremity: Normal Inspection, Non Tender, No Pedal Edema Skin: Normal Color, Warm/Dry Neurologic/Psychiatric: Alert, Oriented x3, No Motor/Sensory Deficits, Normal Mood/Affect Allergies: Coded Allergies: cilostazol (Verified Allergy, Unknown, 05/28/17) Uncoded Allergies: TAPE (Allergy, Unknown, 05/28/17) Copy Copies To 1: ODALYS TORRES MD Discharge Summary Date of Admission Jan 27, 2019 at 16:59 Date of Discharge Discharge Date: Jan 30, 2019 Discharge Time: 10:57 Admission Diagnosis AFib with RVR Consults/Procedures Consulations Cardiology, Pulmonology Discharge Diagnosis AFib with RVR (1) Atrial fibrillation with RVR Status: Acute (2) Elevated troponin Status: Acute (3) COPD without exacerbation Status: Chronic (4) Chronic heart failure with preserved ejection fraction (HFpEF) Status: Chronic (5) Chronic hypoxemic respiratory failure Status: Chronic (6) CAD (coronary artery disease) Status: Chronic Clinical Quality Measures DVT/VTE Risk/Contraindication: Risk Factor Score Per Nursin RFS Level Per Nursing on Admit: 4+=Very High MYRNA HARRELL MD Jan 30, 2019 11:00 POS
--- NOTE | 2019-02-03 06:55 | Physician Query Clarification ---
PQ-CHF Specificity Admission Date: Jan 27, 2019 at 16:59 Discharge Date: Jan 30, 2019 at 12:10 The medical record reflects the following clinical scenario: History/Risk Factors: chronic heart failure with preserved ejection fraction (HFpEF) Clinical Findings: BNP 564.6 Treatment: 40 mg IV Lasix Question: Can you further specify the acuity &/or type of CHF per the clinical indicators above? Cardiology notes state acute on chronic diastolic CHF; Dr. Gates states chronic diastolic CHF. Please clarify acuity. Please document a response in the Progress Notes or Discharge Summary. 1. Acuity: Acute, Chronic or Acute on Chronic 2. Type: Systolic, Diastolic or Systolic & Diastolic 3. Unspecified: CHF cannot be further specified regarding type or acuity 4. Other, with explanation of clinical findings 5. Clinically undetermined, no explanation for clinical findings PHYSICIAN RESPONSE Acuity: Acute on Chronic Type: Diastolic Please remember a lack of response to the above will prompt a phone page by [facility]/Coding staff. In responding to this query, please exercise your independent professional judgment. The purpose of this communication is to more accurately reflect the complexity of your patients condition. The fact that a question is asked does n ot imply that any particular answer is desired or expected. Thank you for your timely response to this clarification. Requestors name: Michael THIS PHYSICIAN QUERY FORM IS A PERMANENT PART OF THE MEDICAL RECORD LUCIANO ESCALONA Feb 03, 2019 06:55 MYRNA FORMAN MD Feb 12, 2019 12:00 POS
--- NOTE | 2019-02-03 07:13 | Physician Query Clarification ---
PQ-Conflicting Diagnosis Admission/Discharge Admission Date: Jan 27, 2019 at 16:59 Discharge Date: Jan 30, 2019 at 12:10 The medical record reflects the following clinical scenario: History/Risk Factors: tachycardia, Afib w/RVR Clinical Findings: Troponin 0.063 Troponin likely elevated secondary to Afib with RVR causing demand ischemia. Type 2 OH likely secondary to afib/flutter with RVR. Treatment: Cardizem gtt transitioned to oral Cardizem, continue Eliquis, stop Amiodarone Question: Do you agree with the impression of the Type [address] Pathak. DS only states elevated troponin. Please document a response in Progress Note or Discharge Summary. 1. Yes 2. No 3. Other, with explanation of clinical findings 4. Clinically undetermined, no explanation for clinical findings. PHYSICIAN RESPONSE Do you agree w/Consulting Dx?: Yes Please remember a lack of response to the above will prompt a phone page by [facility]/Coding staff. In responding to this query, please exercise your independent professional judgment. The purpose of this communication is to more accurately reflect the complexity of your patients condition. The fact that a question is asked does not imply that any particular answer is desired or expected. Thank you for your timely response to this clarification. Requestors name: Michael THIS PHYSICIAN QUERY FORM IS A PERMANENT PART OF THE MEDICAL RECORD LUCIANO ESCALONA Feb 03, 2019 07:13 MYRNA FORMAN MD Feb 04, 2019 07:07 MIGUEL
--- NOTE | 2019-02-03 07:26 | Physician Query Clarification ---
PQ-Conflicting Diagnosis Admission/Discharge Admission Date: Jan 27, 2019 at 16:59 Discharge Date: Jan 30, 2019 at 12:10 The medical record reflects the following clinical scenario: History/Risk Factors: Concern for HCAP, atelectasis Clinical Findings: Increased airspace opacities in the right lung base may represent atelectasis or infiltrate Treatment: IV Vancomycin, IV Pipercillin Question: Do you agree with the impression of the Pneumonia per Dr. Pathak. Please document a response in Progress Note or Discharge Summary. 1. Yes 2. No 3. Other, with explanation of clinical findings 4. Clinically undetermined, no explanation for clinical findings. PHYSICIAN RESPONSE Do you agree w/Consulting Dx?: No Please remember a lack of response to the above will prompt a phone page by [facility]/Coding staff. In responding to this query, please exercise your independent professional judgment. The purpose of this communication is to more accurately reflect the complexity of your patients condition. The fact that a question is asked does not imply that any particular answer is desired or expected. Thank you for your timely response to this clarification. Requestors name: Michael THIS PHYSICIAN QUERY FORM IS A PERMANENT PART OF THE MEDICAL RECORD LUCIANO ESCALONA Feb 03, 2019 07:26 MYRNA FORMAN MD Feb 12, 2019 12:01 POS
== END 2019-01-30 12:10 | disposition home or self-care (01) | DRG 280 ==
LOC: EDUNIT# 15:14 → ER FS 15:16 → ICU 16:59 → 4TH 01-28 13:55
PROVIDERS: ADMIT Internal Medicine; ATTEND Internal Medicine
DX: I48.92 Unspecified atrial flutter (principal); J44.1 Chronic obstructive pulmonary disease with (acute) exacerbation; J44.0 Chronic obstructive pulmonary disease with (acute) lower respiratory infection; J96.11 Chronic respiratory failure with hypoxia; I50.33 Acute on chronic diastolic (congestive) heart failure; I21.A1 Myocardial infarction type 2; M19.90 Unspecified osteoarthritis, unspecified site; I11.0 Hypertensive heart disease with heart failure; H40.9 Unspecified glaucoma; I25.10 Atherosclerotic heart disease of native coronary artery without angina pectoris; I34.0 Nonrheumatic mitral (valve) insufficiency; D64.9 Anemia, unspecified; E78.5 Hyperlipidemia, unspecified; Z85.118 Personal history of other malignant neoplasm of bronchus and lung; Z87.891 Personal history of nicotine dependence; Z95.1 Presence of aortocoronary bypass graft; Z90.710 Acquired absence of both cervix and uterus
CPT/HCPCS: 36415; 71045; 80048; 80053; 83605; 83735; 83880; 84100; 84145; 84484; 85007; 85025; 85027; 87040; 87070; 87081; 87205; 93005; 94640; 94760; 96365; 96367; 96368; 96375